=== PATIENT | male | born 2000 | race Caucasian/White ===

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

== ENCOUNTER 2019-01-03 05:21 | Emergency (ER) | payer OTHER, MEDICAID ==
[~2019-01-03] VITALS: Ht 185.4 cm; Wt 54.4 kg
[2019-01-03 06:46] LABS: Basophils # (auto) 0 uL; Basophils % (auto) 0.5 % (0.0-2.0); Eosinophils # (auto) 0.1 uL; Eosinophils % (auto) 1.9 % (0.0-7.0); Hematocrit 45.2 % (41.0-53.0); Hemoglobin 15.7 g/dL (13.5-17.5); Mean Corpuscular Hemoglobin 30.7 pg (28.0-32.0); Mean Corpuscular Hgb Conc. 34.7 g/dL (32.0-36.0); Mean Corpuscular Volume 88.5 fL (80.0-100.0); Monocytes # (auto) 0.4 uL; Monocytes % (auto) 7.5 % (0.0-12.0); Neutrophils # (auto) 4.4 uL; Neutrophils % (auto) 74.1 % (37.0-80.0); Platelet Count (auto) 198 10^3/uL (140-450); Red Cell Distribution Width 13.1 % (11.8-14.3); White Blood Cell 5.9 10^3/uL (4.4-10.8)
[2019-01-03 06:59] LABS: Alanine Aminotransferase 17 U/L (16-61); Albumin 4.8 g/dL (3.4-5.0); Anion Gap 7 (5-15); Aspartate Aminotransferase 12 U/L (15-37); BUN/Creatinine Ratio 15.3; Blood Urea Nitrogen 15 mg/dL (7-18); Calcium 9.4 mg/dL (8.5-10.1); Carbon Dioxide 26 mmol/L (21-32); Chloride 106 mmol/L (98-107); GFR African American 125 mL/min; GFR Non-African American 104 mL/min; Glucose 88 mg/dL (74-106); Potassium 4.2 mmol/L (3.5-5.1); Sodium 139 mmol/L (136-145)
[2019-01-03 07:04] LABS: Alkaline Phosphatase 74 U/L (45-117); Bilirubin, Total 0.6 mg/dL (0.2-1.0); Total Protein 8.2 g/dL (6.4-8.2)
[2019-01-03 07:20] VITALS: BP 128/77
== END 2019-01-03 08:32 | disposition home or self-care (01) ==
LOC: ER 05:21
DX: R07.89 Other chest pain (principal)
CPT/HCPCS: 36415; 71045; 80053; 84484; 85025; 93005; 94761

== ENCOUNTER 2021-06-10 14:41 | Emergency (ER) | payer MEDICAID ==
[~2021-06-10] VITALS: Ht 185.4 cm; Wt 74.8 kg
[2021-06-10 17:00] VITALS: BP 117/86
== END 2021-06-10 17:36 | disposition home or self-care (01) ==
LOC: ER 14:41
DX: S23.41XA Sprain of ribs, initial encounter (principal); F12.10 Cannabis abuse, uncomplicated; W22.8XXA Striking against or struck by other objects, initial encounter; Y93.89 Activity, other specified; Y92.89 Other specified places as the place of occurrence of the external cause; Y99.8 Other external cause status
CPT/HCPCS: 71101

== ENCOUNTER 2023-08-25 17:13 | Emergency (ER) | payer MEDICAID ==
[~2023-08-25] VITALS: Ht 185.4 cm; Wt 85.0 kg
[2023-08-25 17:22] VITALS: BP 137/85; RESP 18; O2SAT 97
[2023-08-25 17:35] LABS: Basophils # (auto) 0.1 10 ^3/uL (0-0.2); Basophils % (auto) 0.8 % (0.0-2.0); Eosinophils # (auto) 0.4 10 ^3/uL (0-0.8); Eosinophils % (auto) 3.4 % (0.0-7.0); Hematocrit 43.6 % (41.0-53.0); Hemoglobin 14.5 g/dL (13.5-17.5); Lymphocytes # (auto) 2.1 10 ^3/uL (0.4-5.4); Lymphocytes % (auto) 15.7 % (10.0-50.0); Mean Corpuscular Hemoglobin 28.8 pg (28.0-32.0); Mean Corpuscular Hgb Conc. 33.4 g/dL (32.0-36.0); Mean Corpuscular Volume 86.4 fL (80.0-100.0); Monocytes # (auto) 0.7 10 ^3/uL (0-1.3); Monocytes % (auto) 5.6 % (0.0-12.0); Neutrophils # (auto) 9.9 10 ^3/uL (1.6-8.6); Neutrophils % (auto) 74.5 % (37.0-80.0); Red Blood Cells 5.04 10^6/uL (4.5-5.90); Red Cell Distribution Width 13.5 % (11.8-14.3); White Blood Cell 13.3 10^3/uL (4.4-10.8)
[2023-08-25 17:57] LABS: Alanine Aminotransferase 31 U/L (7-40); Albumin 4.9 g/dL (3.2-4.8); Alkaline Phosphatase 88 U/L (46-116); Anion Gap 10 (5-15); Aspartate Aminotransferase 15 U/L (13-40); BUN/Creatinine Ratio 11.2 (10.0-20.0); Bilirubin, Total 0.5 mg/dL (0.2-1.0); Blood Urea Nitrogen 11 mg/dL (9-23); Calcium 10.2 mg/dL (8.7-10.4); Carbon Dioxide 24 mmol/L (20-30); Chloride 107 mmol/L (98-107); Glucose 125 mg/dL (74-106); Sodium 141 mmol/L (136-145); Total Protein 7.8 g/dL (5.7-8.2)
[2023-08-25 19:37] LABS: Urine Bacteria None Seen /hpf (None Seen)
[2023-08-25 19:39] VITALS: PULSE 101
[2023-08-25 19:52] LABS: Urine Blood Negative /uL (Negative); Urine Clarity Clear (Clear); Urine Color Colorless (Yellow); Urine Protein, UAD Negative (Negative); Urine Urobilinogen Normal (Negative); Urine WBC 1 /hpf (0 - 3)
== END 2023-08-25 20:06 | disposition home or self-care (01) ==
LOC: ER 17:13
DX: R07.89 Other chest pain (principal); F41.9 Anxiety disorder, unspecified; J45.909 Unspecified asthma, uncomplicated; F32.9 Major depressive disorder, single episode, unspecified; I10 Essential (primary) hypertension; F12.90 Cannabis use, unspecified, uncomplicated; Z98.890 Other specified postprocedural states
CPT/HCPCS: 36415; 71045; 80053; 81001; 84484; 85025; 93005

== ENCOUNTER 2023-08-27 15:35 | Emergency (ER) | payer MEDICAID ==
[~2023-08-27] VITALS: Ht 185.4 cm; Wt 85.2 kg
[2023-08-27 16:05] VITALS: PULSE 103; RESP 16; O2SAT 98
[2023-08-27 16:20] LABS: Basophils # (auto) 0.1 10 ^3/uL (0-0.2); Basophils % (auto) 0.6 % (0.0-2.0); Eosinophils # (auto) 0.4 10 ^3/uL (0-0.8); Eosinophils % (auto) 3.2 % (0.0-7.0); Hematocrit 43.1 % (41.0-53.0); Hemoglobin 14.8 g/dL (13.5-17.5); Lymphocytes # (auto) 2.1 10 ^3/uL (0.4-5.4); Lymphocytes % (auto) 15.9 % (10.0-50.0); Mean Corpuscular Hemoglobin 29.6 pg (28.0-32.0); Mean Corpuscular Hgb Conc. 34.4 g/dL (32.0-36.0); Mean Corpuscular Volume 85.8 fL (80.0-100.0); Monocytes # (auto) 0.9 10 ^3/uL (0-1.3); Neutrophils # (auto) 9.8 10 ^3/uL (1.6-8.6); Neutrophils % (auto) 73.3 % (37.0-80.0); Nucleated Red Blood Cells % 0.2 %; Red Blood Cells 5.02 10^6/uL (4.5-5.90); Red Cell Distribution Width 13.4 % (11.8-14.3); White Blood Cell 13.3 10^3/uL (4.4-10.8)
[2023-08-27] MEDS: DICYCLOMINE HCL (10MG/ML) 2 ML AMPULE IM ONE (16:20)
[2023-08-27 16:25] LABS: Chloride 105 mmol/L (98-107); Potassium 4.2 mmol/L (3.5-5.1); Sodium 139 mmol/L (136-145)
[2023-08-27 16:26] LABS: Anion Gap 8 (5-15); Carbon Dioxide 26 mmol/L (20-30)
[2023-08-27 16:27] LABS: Calcium 10.5 mg/dL (8.7-10.4)
[2023-08-27 16:31] LABS: BUN/Creatinine Ratio 14.3 (10.0-20.0); Blood Urea Nitrogen 14 mg/dL (9-23); Glucose 97 mg/dL (74-106)
[2023-08-27 16:32] LABS: Lipase 37 U/L (12-53)
[2023-08-27] MEDS ORDERED: DICY10CA PO (19:40)
[2023-08-27 20:11] VITALS: BP 140/81; PULSE 98; RESP 19; TEMP 98.4; O2SAT 97
== END 2023-08-27 20:15 | disposition home or self-care (01) ==
LOC: ER 15:35
DX: R10.12 Left upper quadrant pain (principal); R42 Dizziness and giddiness; I10 Essential (primary) hypertension; J45.909 Unspecified asthma, uncomplicated; F41.9 Anxiety disorder, unspecified; F32.9 Major depressive disorder, single episode, unspecified; F15.90 Other stimulant use, unspecified, uncomplicated; Z98.890 Other specified postprocedural states; Z87.891 Personal history of nicotine dependence
CPT/HCPCS: 36415; 74176; 80048; 83690; 85025; 96372; 99285; J0500

== ENCOUNTER 2023-08-30 18:53 | Emergency (ER) | payer MEDICAID ==
[~2023-08-30] VITALS: Ht 185.4 cm; Wt 99.2 kg
[~2023-08-30 18:53] MED LIST: DICY10CA PO
[2023-08-30] MEDS ORDERED: KETOROLAC TROMETH 60MG/2ML VIAL IM ONE (19:15)
[2023-08-30 19:18] LABS: Basophils # (auto) 0.1 10 ^3/uL (0-0.2); Basophils % (auto) 0.7 % (0.0-2.0); Eosinophils # (auto) 0.4 10 ^3/uL (0-0.8); Eosinophils % (auto) 2.7 % (0.0-7.0); Hematocrit 43.5 % (41.0-53.0); Hemoglobin 14.9 g/dL (13.5-17.5); Lymphocytes # (auto) 2.1 10 ^3/uL (0.4-5.4); Lymphocytes % (auto) 15.8 % (10.0-50.0); Mean Corpuscular Hemoglobin 29.1 pg (28.0-32.0); Mean Corpuscular Hgb Conc. 34.2 g/dL (32.0-36.0); Mean Corpuscular Volume 85.3 fL (80.0-100.0); Monocytes # (auto) 0.8 10 ^3/uL (0-1.3); Neutrophils # (auto) 9.9 10 ^3/uL (1.6-8.6); Neutrophils % (auto) 74.8 % (37.0-80.0); Nucleated Red Blood Cells % 0.1 %; Red Cell Distribution Width 13.3 % (11.8-14.3); White Blood Cell 13.2 10^3/uL (4.4-10.8)
[2023-08-30 19:36] LABS: Alanine Aminotransferase 29 U/L (7-40); Albumin 4.9 g/dL (3.2-4.8); Alkaline Phosphatase 89 U/L (46-116); Anion Gap 8 (5-15); Aspartate Aminotransferase 20 U/L (13-40); Calcium 10.5 mg/dL (8.7-10.4); Carbon Dioxide 26 mmol/L (20-30); Chloride 107 mmol/L (98-107); Glucose 94 mg/dL (74-106); Potassium 4.1 mmol/L (3.5-5.1); Sodium 141 mmol/L (136-145)
[2023-08-30 19:37] LABS: Bilirubin, Total 0.3 mg/dL (0.2-1.0); Total Protein 7.6 g/dL (5.7-8.2)
[2023-08-30 19:41] LABS: BUN/Creatinine Ratio 14.2 (10.0-20.0); Blood Urea Nitrogen 15 mg/dL (9-23)
[2023-08-30 21:57] VITALS: BP 131/90; PULSE 99; RESP 16; O2SAT 98
[2023-08-30] MEDS: SODIUM CHLORIDE 0.9% 1,000 ML IV ONE (22:03)
[2023-08-30] MEDS: KETOROLAC TROMETH 30 MG/ML 1ML VIAL IV ONE (22:04)
== END 2023-08-30 22:59 | disposition home or self-care (01) ==
LOC: ER 18:53
DX: R07.89 Other chest pain (principal); R42 Dizziness and giddiness; J45.909 Unspecified asthma, uncomplicated; I10 Essential (primary) hypertension
CPT/HCPCS: 36415; 71045; 80053; 84484; 85025; 93005; 96361; 96374; 99285; J1885; J7030

== ENCOUNTER 2023-09-04 17:31 | Emergency (ER) | payer MEDICAID ==
[~2023-09-04] VITALS: Ht 185.4 cm; Wt 83.8 kg
[2023-09-04 18:32] VITALS: BP 141/94; PULSE 115; RESP 18; TEMP 97; O2SAT 97
== END 2023-09-04 19:13 | disposition home or self-care (01) ==
LOC: ER 17:31
DX: I80.8 Phlebitis and thrombophlebitis of other sites (principal); I10 Essential (primary) hypertension; J45.909 Unspecified asthma, uncomplicated; F41.9 Anxiety disorder, unspecified; F32.9 Major depressive disorder, single episode, unspecified; Z98.890 Other specified postprocedural states
CPT/HCPCS: 93971

== ENCOUNTER 2023-09-06 22:48 | Inpatient (IN) | payer MEDICAID ==
[~2023-09-06] VITALS: Ht 185.4 cm; Wt 81.9 kg
[2023-09-06] MEDS: ADENOSINE 6 MG/2 ML INJ IV ONE ×3 (23:12→23:45)
[2023-09-06] MEDS: METOPROLOL TARTRATE 1MG/1ML-5ML VIAL IV ONE ×3 (23:26→23:46)
[2023-09-06 23:28] LABS: Basophils # (auto) 0.1 10 ^3/uL (0-0.2); Basophils % (auto) 0.6 % (0.0-2.0); Eosinophils # (auto) 0.4 10 ^3/uL (0-0.8); Eosinophils % (auto) 2.3 % (0.0-7.0); Hematocrit 40.7 % (41.0-53.0); Hemoglobin 14.4 g/dL (13.5-17.5); Lymphocytes # (auto) 2.9 10 ^3/uL (0.4-5.4); Lymphocytes % (auto) 18.5 % (10.0-50.0); Mean Corpuscular Hemoglobin 29.7 pg (28.0-32.0); Mean Corpuscular Hgb Conc. 35.3 g/dL (32.0-36.0); Mean Corpuscular Volume 84.2 fL (80.0-100.0); Monocytes # (auto) 1.1 10 ^3/uL (0-1.3); Monocytes % (auto) 7.2 % (0.0-12.0); Neutrophils # (auto) 11.2 10 ^3/uL (1.6-8.6); Neutrophils % (auto) 71.4 % (37.0-80.0); Red Blood Cells 4.83 10^6/uL (4.5-5.90); Red Cell Distribution Width 13.4 % (11.8-14.3); White Blood Cell 15.7 10^3/uL (4.4-10.8)
[2023-09-06 23:30] VITALS: PULSE 117; RESP 16; O2SAT 95
[2023-09-06 23:45] LABS: INR 1.02 (0.9-1.15); Prothrombin Time 10.8 sec (9.3-11.8)
[2023-09-06] MEDS: LABETALOL HCL 200 MG TAB PO ONE (23:58)
[2023-09-07] VITALS (7 sets, daily range): BP systolic 118–137; BP diastolic 74–85; PULSE 98–118; RESP 13–18; TEMP 97.7–99.2; O2SAT 95–98
[2023-09-07] MEDS ORDERED: ONDANSETRON HCL 4 MG/2 ML VIAL IV PRN (00:15)
[2023-09-07] MEDS ORDERED: TEMAZEPAM 15 MG CAP PO PRN (00:15)
[2023-09-07] MEDS ORDERED: MORPHINE SULFATE INJ 2 MG/ml SYRG IV PRN (00:15)
[2023-09-07] MEDS ORDERED: NITROGLYCERIN 0.4 MG SL TAB SL PRN (00:15)
[2023-09-07] MEDS ORDERED: ALBUTEROL SULF 2.5 MG/0.5ML(0.5%) NEB SOLN NEB PRN (00:15)
[2023-09-07 00:18] LABS: Albumin 3.9 g/dL (3.2-4.8); Alkaline Phosphatase 73 U/L (46-116); Anion Gap 10 (5-15); Aspartate Aminotransferase 14 U/L (13-40); BUN/Creatinine Ratio 16.1 (10.0-20.0); Blood Urea Nitrogen 14 mg/dL (9-23); Calcium 9.1 mg/dL (8.7-10.4); Carbon Dioxide 20 mmol/L (20-30); Chloride 109 mmol/L (98-107); Glucose 108 mg/dL (74-106); Magnesium 1.6 mg/dL (1.6-2.6); Potassium 3.5 mmol/L (3.5-5.1); Sodium 139 mmol/L (136-145)
[2023-09-07 00:19] LABS: Bilirubin, Total 0.4 mg/dL (0.2-1.0); Total Protein 6.2 g/dL (5.7-8.2)
[2023-09-07 00:23] LABS: Alanine Aminotransferase 22 U/L (7-40)
[2023-09-07 02:38] LABS: Urine Bacteria None Seen /hpf (None Seen); Urine WBC None Seen /hpf (0 - 3)
[2023-09-07 03:02] LABS: Urine Blood Negative /uL (Negative); Urine Clarity Clear (Clear); Urine Color Colorless (Yellow); Urine Protein, UAD Negative (Negative); Urine Specific Gravity 1.003 (1.001-1.035); Urine Urobilinogen Normal (Negative)
[2023-09-07] MEDS: METOPROLOL SUCCINATE XL 50 MG TAB PO SCH (09:27)
[2023-09-07] MEDS: SERTRALINE HCL 50 MG TAB PO SCH (09:27)
[2023-09-07] MEDS: LORazepam 0.5 MG TAB PO ONE ×2 (18:15→21:11)
[2023-09-07] MEDS: SODIUM CHLORIDE 0.9% 1,000 ML IV ONE (18:15)
[2023-09-07] MEDS: QUEtiapine FUMARATE 100 MG TAB PO SCH (21:10)
[2023-09-07 21:22] LABS: Amphetamine Screen, Urine Neg (NEGATIVE); Barbiturate Scree,Urine Neg (NEGATIVE); Benzodiazephine Screen, Urine Neg (NEGATIVE); Cannabinoid Screen, Urine Neg (NEGATIVE); Cocaine Screen, Urine Neg (NEGATIVE); Opiate Scree,Urine Neg (NEGATIVE); Phencyclidine Screen, Urine Neg (NEGATIVE)
[2023-09-08 01:00] VITALS: BP 130/85; PULSE 109; RESP 16; TEMP 98.2; O2SAT 96
[2023-09-08 05:00] VITALS: BP 122/72; PULSE 86; RESP 16; TEMP 98.2; O2SAT 97
[2023-09-08 06:22] LABS: Chloride 105 mmol/L (98-107); Potassium 4.2 mmol/L (3.5-5.1); Sodium 139 mmol/L (136-145)
[2023-09-08 06:23] LABS: Anion Gap 6 (5-15); Carbon Dioxide 28 mmol/L (20-30)
[2023-09-08 06:24] LABS: Calcium 9.9 mg/dL (8.5-10.1)
[2023-09-08 06:28] LABS: BUN/Creatinine Ratio 10.9 (10.0-20.0); Blood Urea Nitrogen 11 mg/dL (9-23); Glucose 86 mg/dL (74-106)
[2023-09-08 07:44] VITALS: PULSE 96
[2023-09-08 09:00] VITALS: BP 128/80; PULSE 107; RESP 16; TEMP 97.8; O2SAT 99
[2023-09-08] MEDS ORDERED: LORA-1121 PO (10:03)
[2023-09-08] MEDS ORDERED: METO-289 PO (10:03)
[2023-09-08] MEDS ORDERED: SERT-206 PO (10:03)
[2023-09-08] MEDS ORDERED: FLUT1SPR21 (10:03)
[2023-09-08] MEDS ORDERED: ALBU108A5 IN (10:03)
[2023-09-08] MEDS ORDERED: QUET300T24 PO (10:03)
[2023-09-08] MEDS ORDERED: FAMO40TA7 PO (10:03)
[2023-09-08] MEDS: METOPROLOL SUCCINATE XL 50 MG TAB PO SCH (10:13)
[2023-09-08 10:17] VITALS: O2SAT 98
[2023-09-09 09:08] LABS: Hepatitis B Surface Antigen Negative (Negative)
[2023-09-09 09:29] LABS: Hepatitis C Antibody Negative (Negative)
== END 2023-09-08 13:05 | disposition home or self-care (01) | DRG 201 ==
LOC: ER 22:48 → TELE 09-07 00:22 → TELE-E-ADS 09-07 14:49
PROVIDERS: ADMIT Nurse Practitioner; ATTEND Nurse Practitioner Acute Care
DX: I47.10 Supraventricular tachycardia, unspecified (principal); E78.5 Hyperlipidemia, unspecified; F32.A Depression, unspecified; F41.9 Anxiety disorder, unspecified; I10 Essential (primary) hypertension; J45.909 Unspecified asthma, uncomplicated; Z83.3 Family history of diabetes mellitus; Z79.899 Other long term (current) drug therapy
CPT/HCPCS: 36415; 71045; 80048; 80053; 80307; 81001; 83735; 83880; 84484; 85025; 85610; 85730; 86803; 87340; 93005; 93306; 96374; 96375; 99291; G0378; J0153

== ENCOUNTER 2023-09-09 11:25 | Emergency (ER) | payer MEDICAID ==
[~2023-09-09] VITALS: Ht 185.4 cm; Wt 82.1 kg
[~2023-09-09 11:25] MED LIST changes: +ALBU108A5 IN; +FAMO40TA7 PO; +FLUT1SPR21; +LORA-1121 PO; +METO-289 PO; +QUET300T24 PO; +SERT-206 PO
[2023-09-09 12:20] VITALS: BP 126/88; PULSE 128; RESP 18; O2SAT 98
[2023-09-09 12:29] LABS: Urine Bacteria None Seen /hpf (None Seen)
[2023-09-09 12:45] LABS: Basophils # (auto) 0.1 10 ^3/uL (0-0.2); Basophils % (auto) 0.6 % (0.0-2.0); Eosinophils # (auto) 0.3 10 ^3/uL (0-0.8); Eosinophils % (auto) 1.8 % (0.0-7.0); Hematocrit 44.4 % (41.0-53.0); Hemoglobin 15.2 g/dL (13.5-17.5); Lymphocytes # (auto) 1.8 10 ^3/uL (0.4-5.4); Lymphocytes % (auto) 11.9 % (10.0-50.0); Mean Corpuscular Hemoglobin 29.3 pg (28.0-32.0); Mean Corpuscular Hgb Conc. 34.3 g/dL (32.0-36.0); Mean Corpuscular Volume 85.4 fL (80.0-100.0); Monocytes # (auto) 1.1 10 ^3/uL (0-1.3); Monocytes % (auto) 7.4 % (0.0-12.0); Neutrophils # (auto) 11.6 10 ^3/uL (1.6-8.6); Neutrophils % (auto) 78.3 % (37.0-80.0); Nucleated Red Blood Cells % 0.1 %; Red Cell Distribution Width 13.1 % (11.8-14.3); White Blood Cell 14.9 10^3/uL (4.4-10.8)
[2023-09-09 13:09] LABS: Urine Blood Negative /uL (Negative); Urine Clarity Clear (Clear); Urine Color Colorless (Yellow); Urine Protein, UAD Negative (Negative); Urine Specific Gravity 1.005 (1.001-1.035); Urine Urobilinogen Normal (Negative); Urine WBC <1 /hpf (0 - 3)
[2023-09-09 13:12] LABS: Alanine Aminotransferase 25 U/L (7-40); Alkaline Phosphatase 97 U/L (46-116); Anion Gap 8 (5-15); Aspartate Aminotransferase 14 U/L (13-40); BUN/Creatinine Ratio 16.5 (10.0-20.0); Blood Urea Nitrogen 19 mg/dL (9-23); Calcium 10.6 mg/dL (8.5-10.1); Carbon Dioxide 26 mmol/L (20-30); Chloride 102 mmol/L (98-107); Glucose 107 mg/dL (74-106); Potassium 4.3 mmol/L (3.5-5.1); Sodium 136 mmol/L (136-145)
[2023-09-09 13:13] LABS: Albumin 5.2 g/dL (3.2-4.8); Bilirubin, Total 0.8 mg/dL (0.2-1.0); Total Protein 7.8 g/dL (5.7-8.2)
== END 2023-09-09 20:30 | disposition left against medical advice (07) ==
LOC: ER 11:25
DX: F41.9 Anxiety disorder, unspecified (principal); I10 Essential (primary) hypertension; E78.5 Hyperlipidemia, unspecified; F32.9 Major depressive disorder, single episode, unspecified; J45.909 Unspecified asthma, uncomplicated; Z98.890 Other specified postprocedural states; Z87.891 Personal history of nicotine dependence; Z79.899 Other long term (current) drug therapy
CPT/HCPCS: 36415; 80053; 81001; 84484; 85025; 93005

== ENCOUNTER 2023-10-10 15:36 | Emergency (ER) | payer MEDICAID ==
[~2023-10-10] VITALS: Ht 185.4 cm; Wt 82.0 kg
[2023-10-10 16:18] LABS: Basophils # (auto) 0.1 10 ^3/uL (0-0.2); Basophils % (auto) 0.7 % (0.0-2.0); Eosinophils # (auto) 0.4 10 ^3/uL (0-0.8); Eosinophils % (auto) 2.4 % (0.0-7.0); Hematocrit 44.6 % (41.0-53.0); Hemoglobin 15.4 g/dL (13.5-17.5); Lymphocytes # (auto) 2.3 10 ^3/uL (0.4-5.4); Lymphocytes % (auto) 14.3 % (10.0-50.0); Mean Corpuscular Hemoglobin 29.4 pg (28.0-32.0); Mean Corpuscular Hgb Conc. 34.6 g/dL (32.0-36.0); Neutrophils # (auto) 12.5 10 ^3/uL (1.6-8.6); Neutrophils % (auto) 76.6 % (37.0-80.0); Nucleated Red Blood Cells % 0.3 %; Red Blood Cells 5.25 10^6/uL (4.5-5.90); Red Cell Distribution Width 13.1 % (11.8-14.3); White Blood Cell 16.3 10^3/uL (4.4-10.8)
[2023-10-10 16:37] LABS: Alanine Aminotransferase 35 U/L (7-40); Albumin 5.1 g/dL (3.2-4.8); Alkaline Phosphatase 95 U/L (46-116); Anion Gap 11 (5-15); Aspartate Aminotransferase 16 U/L (13-40); BUN/Creatinine Ratio 9.6 (10.0-20.0); Blood Urea Nitrogen 10 mg/dL (9-23); Calcium 10.2 mg/dL (8.7-10.4); Carbon Dioxide 24 mmol/L (20-30); Chloride 102 mmol/L (98-107); Glucose 97 mg/dL (74-106); Magnesium 1.9 mg/dL (1.6-2.6); Potassium 3.7 mmol/L (3.5-5.1); Sodium 137 mmol/L (136-145)
[2023-10-10 16:38] LABS: Bilirubin, Total 0.6 mg/dL (0.2-1.0); Total Protein 8.1 g/dL (5.7-8.2)
[2023-10-10 16:41] LABS: Urine Bacteria None Seen /hpf (None Seen); Urine WBC None Seen /hpf (0 - 3)
[2023-10-10 16:50] LABS: Urine Blood Negative /uL (Negative); Urine Budding Yeast OCCASIONAL /hpf (None Seen); Urine Clarity Clear (Clear); Urine Color Colorless (Yellow); Urine Protein, UAD Negative (Negative); Urine Specific Gravity 1.009 (1.001-1.035); Urine Urobilinogen Normal (Negative); Urine pH 6.5 (5.0-9.0)
[2023-10-10] MEDS ORDERED: BUPR150T8 PO (16:53)
[2023-10-10 17:16] VITALS: BP 123/91; PULSE 97; RESP 16; TEMP 98.1; O2SAT 98
== END 2023-10-10 17:30 | disposition home or self-care (01) ==
LOC: ER 15:36
DX: F41.9 Anxiety disorder, unspecified (principal); R07.89 Other chest pain; I10 Essential (primary) hypertension; E78.5 Hyperlipidemia, unspecified; J45.909 Unspecified asthma, uncomplicated; F32.9 Major depressive disorder, single episode, unspecified; Z98.890 Other specified postprocedural states; Z87.891 Personal history of nicotine dependence; Z79.899 Other long term (current) drug therapy
CPT/HCPCS: 36415; 80053; 81001; 83735; 84484; 85025; 93005

== ENCOUNTER 2023-12-15 15:05 | Emergency (ER) | payer MEDICAID ==
[~2023-12-15] VITALS: Ht 185.4 cm; Wt 81.6 kg
[2023-12-15 15:05] VITALS: BP 119/85; RESP 16; O2SAT 96
[~2023-12-15 15:05] MED LIST changes: +BUPR150T8 PO
[2023-12-15 16:04] LABS: Basophils # (auto) 0.1 10 ^3/uL (0-0.2); Basophils % (auto) 0.6 % (0.0-2.0); Eosinophils # (auto) 0.4 10 ^3/uL (0-0.8); Eosinophils % (auto) 3.6 % (0.0-7.0); Hematocrit 44.1 % (41.0-53.0); Lymphocytes # (auto) 2.7 10 ^3/uL (0.4-5.4); Lymphocytes % (auto) 22.1 % (10.0-50.0); Mean Corpuscular Hemoglobin 28.8 pg (28.0-32.0); Mean Corpuscular Volume 84.7 fL (80.0-100.0); Monocytes # (auto) 0.9 10 ^3/uL (0-1.3); Monocytes % (auto) 7.6 % (0.0-12.0); Neutrophils # (auto) 8.1 10 ^3/uL (1.6-8.6); Neutrophils % (auto) 66.1 % (37.0-80.0); Nucleated Red Blood Cells % 0.2 %; Platelet Count (auto) 272 10^3/uL (140-450); Red Blood Cells 5.21 10^6/uL (4.5-5.90); Red Cell Distribution Width 13.2 % (11.8-14.3); White Blood Cell 12.2 10^3/uL (4.4-10.8)
[2023-12-15 16:07] LABS: Urine Bacteria None Seen /hpf (None Seen)
[2023-12-15 16:13] LABS: Alanine Aminotransferase 28 U/L (7-40); Alkaline Phosphatase 89 U/L (46-116); Anion Gap 7 (5-15); Aspartate Aminotransferase 16 U/L (13-40); BUN/Creatinine Ratio 10.7 (10.0-20.0); Blood Urea Nitrogen 12 mg/dL (9-23); Calcium 9.9 mg/dL (8.7-10.4); Carbon Dioxide 26 mmol/L (20-31); Chloride 108 mmol/L (98-107); Glucose 87 mg/dL (74-106); Potassium 3.8 mmol/L (3.5-5.1); Sodium 141 mmol/L (136-145)
[2023-12-15 16:14] LABS: Albumin 4.7 g/dL (3.2-4.8); Bilirubin, Total 0.5 mg/dL (0.2-1.0); Total Protein 7.6 g/dL (5.7-8.2)
[2023-12-15 16:17] LABS: Urine Blood Negative /uL (Negative); Urine Clarity Clear (Clear); Urine Color Light-Yellow (Yellow); Urine Protein, UAD Negative (Negative); Urine Specific Gravity 1.017 (1.001-1.035); Urine Urobilinogen Normal (Negative); Urine WBC 1 /hpf (0 - 3)
[2023-12-15 19:18] VITALS: PULSE 98
== END 2023-12-15 23:55 | disposition home or self-care (01) ==
LOC: ER 15:07
DX: F41.9 Anxiety disorder, unspecified (principal); I10 Essential (primary) hypertension; E78.5 Hyperlipidemia, unspecified; F32.A Depression, unspecified; J45.909 Unspecified asthma, uncomplicated; Z98.890 Other specified postprocedural states; Z79.899 Other long term (current) drug therapy
CPT/HCPCS: 36415; 80053; 81001; 82962; 84484; 85025; 93005

== ENCOUNTER 2024-01-23 15:20 | Emergency (ER) | payer MEDICAID ==
[~2024-01-23] VITALS: Ht 182.9 cm; Wt 83.0 kg
[2024-01-23 15:48] LABS: Urine Bacteria None Seen /hpf (None Seen)
[2024-01-23 16:12] LABS: Urine Blood Negative /uL (Negative); Urine Clarity Clear (Clear); Urine Color Colorless (Yellow); Urine Protein, UAD Negative (Negative); Urine Specific Gravity 1.003 (1.001-1.035); Urine Urobilinogen Normal (Negative); Urine WBC <1 /hpf (0 - 3)
[2024-01-23 16:59] VITALS: BP 130/78; PULSE 97; RESP 18; TEMP 100.2; O2SAT 95
--- NOTE | 2024-01-23 17:59 | ED.PDOC ---
History of Present Illness HPI Comments 24y M who presents to the ED for chief complaint of fever. Pt states he has been having fever and tachycardia at home for the past few days. Pt states his temp at home was 101F and states while checking his vitals, he noted his heart rate rises to between 140 to 180's and came to the ED for further evaluation. Pt also states he is under tx for atival withdrawal to get off medication. Pt has history of anxiety and depression and HTN. Pt otherwise denies any other symptoms at this time. Chief Complaint: Fever Time Seen by MD: 17:56 Reviewed Notes: Nurses Notes Information Source: Patient, Relative (Father) Mode of Arrival: Ambulatory Timing: Hours, Days Duration: Since onset Prehospital treatment: None Severity: Moderate Fever: Oral Context: Recent: Sore throat Symptoms: Fever Modifying Factors: Tylenol Associated Signs and Symptoms: None Past Medical History PAST MEDICAL HISTORY: Anxiety, Asthma, Depression, High Lipids, HTN Surgical History: Hernia Repair Family History Family History: Family hx of DM, Family hx of heart sabina Social History Smoker: Non-Smoker, Other Alcohol: Denies ETOH Use Drugs: Denies Drug Use Lives In: Home Constitutional: Fever EENTM: No Symptoms Reported Respiratory: No Symptoms Reported Cardiovascular: No Symptoms Reported Gastrointestinal: No Symptoms Reported Genitourinary: No Symptoms Reported Neurological: No Symptoms Reported Musculoskeletal: No Symptoms Reported Integumentary: No Symptoms Reported Allergic/Immunocompromised: others Hematologic/Lymphatic: No Symptoms Reported Endocrine: No Symptoms Reported Psychiatric: No symptoms Reported All Other Systems: Reviewed and Negative Physical Exam General Appearance: No Apparent Distress HEENT: Normal ENT Inspection, Pharynx Normal, TMs Normal Neck: Full Range of Motion, Non-Tender, Normal, Normal Inspection Respiratory: Chest Non-Tender, Lungs Clear, No Accessory Muscle Use, No Respiratory Distress, Normal Breath Sounds Cardiovascular: No Edema, No JVD, No Murmur, No Gallop, Normal Peripheral Pulses, Regular Rate/Rhythm Breast Exam: Deferred Gastrointestinal: No Organomegaly, Non Tender, No Pulsatile Mass, Normal Bowel Sounds, Soft Genitalia: Deferred Pelvic: Deferred Rectal: Deferred Extremities: No calf tenderness, Normal capillary refill, Normal inspection, Normal range of motion, Non-tender, No pedal edema Musculoskeletal : Apperance: Normal Neurologic: Alert, police radio dispatcher II-XII nml as Tested, No Motor Deficits, Normal Affect, Normal Mood, No Sensory Deficits Cerebellar Function: Normal Reflexes: Normal Skin: Dry, Normal Color, Warm Lymphatic: No Adenopathy Was a procedure done? Was a procedure done?: No Fever Differential Dx Differential Diagnosis: Dehydration, Influenza, Pharyngitis Other Differential Diagnosis anxiety, hypochondriasis, URI, X-Ray, Labs, Meds, VS Vital Signs Date Time Temp Pulse Resp B/P (MAP) Pulse Ox O2 Delivery O2 Flow Rate FiO2 01/23/24 16:59 100.2 97 18 130/78 (95) 95 100.2 01/23/24 16:59 97 18 95 Room Air 01/23/24 15:45 100.1 99 18 131/85 (100) 95 Lab Test 01/23/24 15:47 Range/Units Urine Color Colorless Yellow Urine Clarity Clear Clear Urine pH 7.0 5.0-9.0 Urine Specific Dwarf 1.003 1.001-1.035 Urine Protein Negative Negative Urine Ketones Negative Negative Urine Blood Negative Negative /uL Urine Nitrite Negative Negative Urine Bilirubin Negative Negative Urine Urobilinogen Normal Negative mg/dL Urine Leukocyte Esterase Negative Negative /uL Urine RBC None seen 0 - 3 /hpf Urine WBC <1 0 - 3 /hpf Urine Squamous Epithelial Cells Few <5 /hpf Urine Bacteria None seen None Seen /hpf Urine Glucose Normal Normal mg/dL PROCEDURE(s): CXR2 - CHEST TWO VIEWS ROUTINE IMPRESSION: No acute cardiopulmonary abnormality. The urine test is negative At this time, the patient was being discharged The patient will follow up with the primary care doctor The patient will return to the emergency department's condition worsens. The patient's diagnosis is viral syndrome Time of 1ST Reevaluation: 18:30 Reevaluation 1ST: Unchanged Patient Education/Counseling: Diagnosis, Treatment, Prognosis, Need For Follow Up Family Education/Counseling: Diagnosis, Treatment, Prognosis, Need For Follow Up Departure 1 Departure Time of Disposition: 19:47 Impression: Primary Impression: Viral syndrome Disposition: 01 HOME / SELF CARE / HOMELESS Condition: Fair Discharged With: Self Critical Care Note Critical Care Time?: No Stability Stability form required: No Heart Score Heart Score: Heart Score Response (Comments) Value History N/A 0 EKG N/A 0 Age N/A 0 Risk Factors N/A 0 Troponin N/A 0 Total 0 I personally scribed for REA POLLOCK MD ([email or web address]) on 01/23/24 at 17:59. Electronically submitted by Delores Lozano ([email or web address]). I personally scribed for REA POLLOCK MD ([email or web address]) on 01/23/24 at 19:31. Electronically submitted by Delores Lozano ([facility] [place]). REA POLLOCK MD Jan 23, 2024 17:59
--- NOTE | 2024-01-23 19:10 | DVH ---
EXAM: XY CHEST TWO VIEWS ROUTINE CLINICAL HISTORY: sob TECHNIQUE: Frontal and lateral of views chest WID: COMPARISON: 09/08/2023 FINDINGS: Lines and tubes: None Chest: The heart size and pulmonary vasculature is within normal limits. No pleural effusion, pneumothorax, or consolidation. The osseous structures are grossly intact. Healed posterior left 8th rib fracture deformity. IMPRESSION: No acute cardiopulmonary abnormality.
== END 2024-01-23 19:53 | disposition home or self-care (01) ==
LOC: ER 15:20
DX: B34.9 Viral infection, unspecified (principal); J45.909 Unspecified asthma, uncomplicated; E78.5 Hyperlipidemia, unspecified; I10 Essential (primary) hypertension; Z98.890 Other specified postprocedural states
CPT/HCPCS: 71046; 81001

== ENCOUNTER 2024-01-30 12:11 | Emergency (ER) | payer MEDICAID ==
[~2024-01-30] VITALS: Ht 175.3 cm; Wt 96.0 kg
--- NOTE | 2024-01-30 12:47 | ED.PDOC ---
HPI Comments 24Y M with PMHx HTN, HLD, asthma, anxiety, and depression presents to ED for chief complaint chest pain. Pt described chest pain as left sided, pressure, and non-radiating. Additional symptom includes dizziness, which pt has experienced daily for 6months. Pt states he woke up in the morning with a HR >100, took his BP medication, and then HR dropped to 58 while laying down. Pt then began to have a panic attack and became tachycardic. 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 Pt states he takes 3/4 of the Metoprolol 50mg pill. Pt is also currently trying to wean off Ativan and original dosage was 3.5mg. Pt states he has been decreasing Ativan by 1/4 of the pill weekly. Pt believes dizziness is due to Ativan. Pt also recently stopped using marijuana. No known allergies. At the time of my interview, patient states the chest pain has resolved, and he no longer feels palpitations. Also reports he has had an extensive cardiac workup including blood work, stress tests and echocardiograms, and was told he does not have heart disease or arrhythmias. Chief Complaint: Chest Pain Time Seen by MD: 12:27 Primary Care Provider: VIKTOR Day Notes: Medications, Allergies Allergies: Coded Allergies: NO KNOWN ALLERGIES (Unverified , 02/22/18) Home Meds Active Scripts Bupropion Hcl (Wellbutrin Sr) 150 Mg Tab, 1 TAB PO BID, #60 TAB 5 Refills Prov:BILL PHILLIPS 10/10/23 Dicyclomine Hcl (BENTYL CAPSULE) 10 Mg Cp, 1 CAP PO Q6HPRN, #20 CAP 0 Refills Prov:FAISAL NICOLE PAC 08/27/23 Reported Medications Albuterol Sulfate (Albuterol Sulfate Hfa) 108 Mcg/Act Aer, 2 PUFF IN Q4H PRN for SHORTNESS OF BREATH, AER 09/08/23 Metoprolol Succinate (Metoprolol Succinate Er) 50 Mg Tab, 50 MG PO DAILY, MG 09/08/23 Sertraline Hcl (Sertraline Hcl) 50 Mg Tab, 25 MG PO DAILY, MG 09/08/23 Famotidine (Famotidine) 40 Mg Tab, 40 MG PO HS, TAB 09/08/23 Quetiapine Fumerate (QUETIAPINE FUMARATE) 300 Mg Tab, 300 MG PO HS, MG 09/08/23 Lorazepam (ATIVAN TABLET) 0.5 Mg Tb, 2 TAB PO DAILY PRN for ANXIETY, #30 TAB 09/08/23 Fluticasone Propionate (Nasal) (Allergy Nasal [place] 24 Ho) 50 Mcg/Act Spr, 1 SPRAY NA DAILY, SPRAY 09/08/23 Information Source: Patient Mode of Arrival: Ambulatory Severity: Mild Timing: Hours Duration: Since onset Location: Chest (L) Radiation: No Radiation Quality: Pressure Onset: At Rest Cardiac Risk Factors: Hyperlipidemia, HTN PE Risk Factors: None History of: Similar pain in past Modifying Factors: Nothing Associated Signs and Symptoms: Other Past Medical History PAST MEDICAL HISTORY: Anxiety, Asthma, Depression, High Lipids, HTN Surgical History: Hernia Repair Family History Family History: Family hx of DM, Family hx of heart sabina Social History Smoker: Non-Smoker, Other Alcohol: Denies ETOH Use Drugs: Denies Drug Use Lives In: Home Constitutional: denies: chills, diaphoresis, fatigue, fever, malaise, sweats, weakness, others EENTM: denies: blurred vision, double vision, ear bleeding, ear discharge, ear drainage, ear pain, ear ringing, eye pain, eye redness, hearing loss, mouth pain, mouth swelling, nasal discharge, nose bleeding, nose congestion, nose pain, photophobia, tearing, throat pain, throat swelling, voice changes, others Respiratory: denies: cough, hemoptysis, orthopnea, SOB at rest, shortness of breath, SOB with excertion, stridor, wheezing, others Cardiovascular: reports: chest pain; denies: dizzy spells, diaphoresis, Dyspnea on exertion, edema, irregular heart beat, left arm pain, lightheadedness, palpitations, PND, syncope, others Gastrointestinal: denies: abdomen distended, abdominal pain, blood streaked bowels, constipated, diarrhea, dysphagia, difficulty swallowing, hematemesis, melena, nausea, poor appetite, poor fluid intake, rectal bleeding, rectal pain, vomiting, others Genitourinary: denies: burning, dysuria, flank pain, frequency, hematuria, incontinence, penile discharge, penile sore, pain, testicle pain, testicle swelling, urgency, others Neurological: reports: dizziness; denies: fainting, headache, left sided numbness, left sided weakness, numbness, paresthesia, pre-existing deficit, right sided numbness, right sided weakness, seizure, speech problems, tingling, tremors, weakness, others Musculoskeletal: denies: back pain, gout, joint pain, joint swelling, muscle pain, muscle stiffness, neck pain, others Integumetry: denies: bruises, change in color, change in hair/nails, dryness, laceration, lesions, lumps, rash, wounds, others Allergic/Immunocompromised: denies: Difficulty Healing, Frequent Infections, Hives, Itching, others Hematologic/Lymphatic: denies: anemia, blood clots, easy bleeding, easy bruising, swollen glands, others Endocrine: denies: excessive hunger, excessive sweating, excessive thirst, excessive urination, flushing, intolerance to cold, intolerance to heat, unexplained weight gain, unexplained weight loss, others Psychiatric: reports: anxiety; denies: bipolar disorder, depression, hopeless, panic disorder, schizophrenia, sleepless, suicidal, others All Other Systems: Reviewed and Negative Physical Exam General Appearance: No Apparent Distress HEENT: PERRL/EOMI Neck: Full Range of Motion, Normal Inspection Respiratory: Chest Non-Tender, Lungs Clear, No Accessory Muscle Use, No Respiratory Distress, Normal Breath Sounds Cardiovascular: No Edema, No JVD, Regular Rate/Rhythm Breast Exam: Deferred Gastrointestinal: Non Tender, Soft Genitalia: Deferred Pelvic: Deferred Rectal: Deferred Extremities: No calf tenderness, Normal inspection, Normal range of motion, Non-tender, No pedal edema Neurologic: Alert, No Motor Deficits, Normal Affect, No Sensory Deficits, Other (Very anxious) Cerebellar Function: NOT DONE Reflexes: NOT DONE Skin: Dry, Normal Color, Warm Lymphatic: NOT DONE EKG EKG : Comments Sinus rhythm, rate 68, normal intervals, normal axis, normal QRS, nonspecific T changes Was a procedure done? Was a procedure done?: No CP Differential Dx Differential Diagnosis: Anxiety / Panic Attack, OR Other Differential Diagnosis Arrhythmia, among others X-Ray, Labs, Meds, VS Vital Signs Date Time Temp Pulse Resp B/P (MAP) Pulse Ox O2 Delivery O2 Flow Rate FiO2 01/30/24 12:29 78 01/30/24 12:29 98.4 93 20 162/121 (135) 96 Lab Test 01/30/24 12:57 01/30/24 12:15 Range/Units Troponin I High Sensitivity < 3 L < 3 L </=54 ng/L X-Ray, Labs, Meds, VS Comment 24-year-old male with a history of hypertension, hyperlipidemia and anxiety complaining of transient chest pain and palpitations Initial blood pressure remarkable for 162/121, now down to 130/80 Exam remarkable for anxiety EKG sinus rhythm, 68, nonspecific T changes Two serial troponins negative On re-evaluation, patient stated he was not having chest pain or palpitations, and and was otherwise well-appearing. Blood pressure was controlled without intervention. Other vitals were stable. Patient has had extensive cardiac workup and has no evidence of heart disease or arrhythmias based on what he has been told by his outside barrel lathe operator. He appears stable for outpatient follow-up. Time of 1ST Reevaluation: 12:57 Reevaluation 1ST: Unchanged Time of 2ND Reevaluation: 13:54 Reevaluation 2ND: Unchanged Patient Education/Counseling: Diagnosis, Treatment Family Education/Counseling: No Family Present Departure 1 Departure Time of Disposition: 13:54 Impression: Primary Impression: Non-cardiac chest pain Additional Impression: Heart palpitations Disposition: 01 HOME / SELF CARE / HOMELESS Condition: Stable Additional Instructions: EKG was unremarkable. Your screening test for heart attack were negative (nor mal). Follow-up with your outside barrel lathe operator in 1-2 days. Discharged With: Self Critical Care Note Critical Care Time?: No Stability Stability form required: No Heart Score Heart Score: Heart Score Response (Comments) Value History Slightly Suspicious 0 EKG Repolarization Disturb 1 Age <45 0 Risk Factors 1 or 2 risk factors 1 Troponin Normal limit 0 Total 2 I personally scribed for MICHELLE SWEENEY MD ([email or web address]) on 01/30/24 at 12:47. Electronically submitted by Ariana Bruno ([email or web address]). MICHELLE SWEENEY MD Jan 30, 2024 12:47
[2024-01-30 13:50] VITALS: BP 122/83; PULSE 86; RESP 18; TEMP 98.3; O2SAT 97
--- NOTE | 2024-01-31 06:36 | ECG ---
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
== END 2024-01-30 14:11 | disposition home or self-care (01) ==
LOC: ER 12:11
DX: R07.89 Other chest pain (principal); R00.2 Palpitations; R42 Dizziness and giddiness; R94.31 Abnormal electrocardiogram [ECG] [EKG]; E78.5 Hyperlipidemia, unspecified; F32.A Depression, unspecified; F41.0 Panic disorder [episodic paroxysmal anxiety]; I10 Essential (primary) hypertension; J45.909 Unspecified asthma, uncomplicated; Z79.899 Other long term (current) drug therapy; Z98.890 Other specified postprocedural states
CPT/HCPCS: 36415; 84484; 93005

== ENCOUNTER 2024-02-10 14:38 | Emergency (ER) | payer MEDICAID ==
[~2024-02-10] VITALS: Ht 182.9 cm; Wt 77.0 kg
--- NOTE | 2024-02-10 15:11 | ED.PDOC ---
History of Present Illness HPI Comments A 24 YEAR OLD MALE PRESENTS TO THE ED WITH COMPLAINT OF TACHYCARDIA AND DIARRHEA. PATIENT REPORTS THAT HE STARTED TO EXPERIENCE TACHYCARDIA TODAY IN THE 160-170S ABOUT 30 MINUTES AGO ALONG WITH ASSOCIATED SYMPTOMS OF COUGH, AND DIARRHEA FOR ABOUT A WEEK. PATIENT RELAYS THAT HIS FEVER WAS NOTED TO BE 101 F AT 3AM THIS MORNING WITH THROAT PAIN AND BODY ACHING. PATIENT NOTES HE TOOK THERAFLU TODAY, RELIEVING HIS COUGH. PATIENT STATES HE TOOK HIS ANXIETY MEDICATION ATIVAN TODAY WHEN HIS TACHYCARDIA STARTED. [place] [facility] [place] FOR SAME COMPLAINTS AND DISCHARGED HOME. PT HAS HX OF SINUS TACHYCARDIA DUE TO ANXIETY. PATIENT DENIES CHILLS, SHORTNESS OF BREATH, CHEST PAIN, ABDOMINAL PAIN, NAUSEA, VOMITING, HEADACHE, OR OTHER COMPLAINTS. NO OTHER SYMPTOMS OR MODIFYING FACTORS AT THIS TIME. PT IS ALERT, ORIENTATION X4 WITH NORMAL GAIT. Chief Complaint: Diarrhea Time Seen by MD: 15:07 Primary Care Provider: VIKTOR Reviewed Notes: Nurses Notes, Medications, Allergies Allergies: Coded Allergies: NO KNOWN ALLERGIES (Unverified , 02/22/18) Home Meds Active Scripts Promethazine-Dm (Promethazine Dm 6.25-15 mg/5Ml) 1 Tatyana Tatyana, 5 ML PO TID, #150 ML Prov:CHIO HICKS 02/10/24 Ibuprofen (Ibuprofen) 600 Mg Tab, 1 TAB PO QID, #30 TAB Prov:CHIO HICKS 02/10/24 Azithromycin (ZITHROMAX TABLET) 250 Mg Tb, 250 MG PO DAILY, #6 TAB Prov:CHIO HICKS 02/10/24 Bupropion Hcl (Wellbutrin Sr) 150 Mg Tab, 1 TAB PO BID, #60 TAB 5 Refills Prov:BILL PHILLIPSP 10/10/23 Dicyclomine Hcl (BENTYL CAPSULE) 10 Mg Cp, 1 CAP PO Q6HPRN, #20 CAP 0 Refills Prov:FAISAL NICOLE PAC 08/27/23 Reported Medications Albuterol Sulfate (Albuterol Sulfate Hfa) 108 Mcg/Act Aer, 2 PUFF IN Q4H PRN for SHORTNESS OF BREATH, AER 09/08/23 Metoprolol Succinate (Metoprolol Succinate Er) 50 Mg Tab, 50 MG PO DAILY, MG 09/08/23 Sertraline Hcl (Sertraline Hcl) 50 Mg Tab, 25 MG PO DAILY, MG 09/08/23 Famotidine (Famotidine) 40 Mg Tab, 40 MG PO HS, TAB 09/08/23 Quetiapine Fumerate (QUETIAPINE FUMARATE) 300 Mg Tab, 300 MG PO HS, MG 09/08/23 Lorazepam (ATIVAN TABLET) 0.5 Mg Tb, 2 TAB PO DAILY PRN for ANXIETY, #30 TAB 09/08/23 Fluticasone Propionate (Nasal) (Allergy Nasal [place] 24 Ho) 50 Mcg/Act Spr, 1 SPRAY NA DAILY, SPRAY 09/08/23 Information Source: Patient Mode of Arrival: Ambulatory Severity: Moderate Timing: Hours Duration: Since onset, Intermittent, Days Prehospital treatment: None Medication Refill: For: Other (DIARRHEA, COUGH AND ANXIETY ) Past Medical History PAST MEDICAL HISTORY: Anxiety, Asthma, Depression, High Lipids, HTN Surgical History: Hernia Repair Family History Family History: Family hx of DM, Family hx of heart sabina Social History Smoker: Non-Smoker, Other Alcohol: Denies ETOH Use Drugs: Denies Drug Use Lives In: Home Constitutional: reports: fever; denies: chills, diaphoresis, fatigue, malaise, sweats, weakness, others EENTM: denies: blurred vision, double vision, ear bleeding, ear discharge, ear drainage, ear pain, ear ringing, eye pain, eye redness, hearing loss, mouth pain, mouth swelling, nasal discharge, nose bleeding, nose congestion, nose pain, photophobia, tearing, throat pain, throat swelling, voice changes, others Respiratory: reports: cough; denies: hemoptysis, orthopnea, SOB at rest, shortness of breath, SOB with excertion, stridor, wheezing, others Cardiovascular: reports: others ( TACHYCARDIA); denies: chest pain, dizzy spells, diaphoresis, Dyspnea on exertion, edema, irregular heart beat, left arm pain, lightheadedness, palpitations, PND, syncope Gastrointestinal: reports: diarrhea; denies: abdomen distended, abdominal pain, blood streaked bowels, constipated, dysphagia, difficulty swallowing, hematemesis, melena, nausea, poor appetite, poor fluid intake, rectal bleeding, rectal pain, vomiting, others Genitourinary: denies: burning, dysuria, flank pain, frequency, hematuria, incontinence, penile discharge, penile sore, pain, testicle pain, testicle swelling, urgency, others Neurological: denies: dizziness, fainting, headache, left sided numbness, left sided weakness, numbness, paresthesia, pre-existing deficit, right sided numbness, right sided weakness, seizure, speech problems, tingling, tremors, weakness, others Musculoskeletal: denies: back pain, gout, joint pain, joint swelling, muscle pain, muscle stiffness, neck pain, others Integumetry: denies: bruises, change in color, change in hair/nails, dryness, laceration, lesions, lumps, rash, wounds, others Allergic/Immunocompromised: denies: Difficulty Healing, Frequent Infections, Hives, Itching, others Hematologic/Lymphatic: denies: anemia, blood clots, easy bleeding, easy bruising, swollen glands, others Endocrine: denies: excessive hunger, excessive sweating, excessive thirst, excessive urination, flushing, intolerance to cold, intolerance to heat, unexplained weight gain, unexplained weight loss, others Psychiatric: denies: anxiety, bipolar disorder, depression, hopeless, panic disorder, schizophrenia, sleepless, suicidal, others All Other Systems: Reviewed and Negative Physical Exam General Appearance: No Apparent Distress, Normal HEENT: PERRL/EOMI, Pharyngeal Erythema (TONSILLAR SWELLING, NO EXUDATES. ) Neck: Full Range of Motion, Non-Tender, Normal, Normal Inspection Respiratory: Chest Non-Tender, Lungs Clear, No Accessory Muscle Use, No Respiratory Distress, Normal Breath Sounds Cardiovascular: No Edema, No JVD, No Murmur, No Gallop, Normal Peripheral Pulses, Regular Rate/Rhythm Breast Exam: Deferred Gastrointestinal: No Organomegaly, Non Tender, No Pulsatile Mass, Normal Bowel Sounds, Soft Genitalia: Deferred Pelvic: Deferred Rectal: Deferred Extremities: No calf tenderness, Normal capillary refill, Normal inspection, Normal range of motion, Non-tender, No pedal edema Musculoskeletal : Apperance: Normal Neurologic: Alert, land surveyor II-XII nml as Tested, No Motor Deficits, Normal Affect, Normal Mood, No Sensory Deficits Cerebellar Function: Normal Reflexes: Normal Skin: Dry, Normal Color, Warm Lymphatic: No Adenopathy Was a procedure done? Was a procedure done?: No Differential Dx Considerations may include: ACUTE TONSILLITIS, HX OF ANXIETY, VIRAL SYNDROME X-Ray, Labs, Meds, VS Vital Signs Date Time Temp Pulse Resp B/P (MAP) Pulse Ox O2 Delivery O2 Flow Rate FiO2 02/10/24 17:52 99.8 97 18 139/84 (102) 98 99.8 02/10/24 17:26 101.0 02/10/24 15:26 100.2 116 18 131/89 (103) 97 100.2 02/10/24 15:26 116 18 97 Room Air 02/10/24 14:55 100.2 116 18 131/89 (103) 97 Lab Test 02/10/24 14:56 Range/Units White Blood Count 10.8 4.4-10.8 10^3/uL Red Blood Count 5.43 4.5-5.90 10^6/uL Hemoglobin 15.8 13.5-17.5 g/dL Hematocrit 46.4 41.0-53.0 % Mean Corpuscular Volume 85.4 80.0-100.0 fL Mean Corpuscular Hemoglobin 29.1 28.0-32.0 pg Mean Corpuscular Hemoglobin Concent 34.1 32.0-36.0 g/dL Red Cell Distribution Width 13.5 11.8-14.3 % Platelet Count 227 140-450 10^3/uL Mean Platelet Volume 9.5 6.9-10.8 fL Neutrophils (%) (Auto) 83.2 H 37.0-80.0 % Lymphocytes (%) (Auto) 6.8 L 10.0-50.0 % Monocytes (%) (Auto) 9.0 0.0-12.0 % Eosinophils (%) (Auto) 0.5 0.0-7.0 % Basophils (%) (Auto) 0.5 0.0-2.0 % Neutrophils # (Auto) 9.0 H 1.6-8.6 10 ^3/uL Lymphocytes # (Auto) 0.7 0.4-5.4 10 ^3/uL Monocytes # (Auto) 1.0 0-1.3 10 ^3/uL Eosinophils # (Auto) 0.1 0-0.8 10 ^3/uL Basophils # (Auto) 0.1 0-0.2 10 ^3/uL Nucleated Red Blood Cells 0.0 % Sodium Level 142 136-145 mmol/L Potassium Level 3.5 3.5-5.1 mmol/L Chloride Level 106 98-107 mmol/L Carbon Dioxide Level 26 20-31 mmol/L Anion Gap 10 5-15 Blood Urea Nitrogen 8 L 9-23 mg/dL Creatinine 1.17 0.700-1.30 mg/dL Glomerular Filtration Rate Calc 89 >90 mL/min BUN/Creatinine Ratio 6.8 L 10.0-20.0 Serum Glucose 98 74-106 mg/dL Calcium Level 10.0 8.7-10.4 mg/dL Troponin I High Sensitivity < 3 L </=54 ng/L Current Medications Medications (Trade) Dose Ordered Sig/Jb Route Start Time Stop Time Status Last Admin Sodium Chloride 1,000 ml @ 1,000 mls/hr Q1H ONCE IV 02/10/24 15:15 02/10/24 16:14 DC 02/10/24 15:15 Ceftriaxone Sodium 50 ml @ 100 mls/hr ONCE ONCE IV 02/10/24 17:30 02/10/24 17:51 DC 02/10/24 17:28 Acetaminophen (Tylenol Tablet) 1,000 mg ONCE ONCE PO 02/10/24 17:30 02/10/24 17:31 DC 02/10/24 17:26 CHEST XR: FINDINGS: Lines and Tubes: None Lungs: Clear Pleura: No effusion. No pneumothorax. Cardiomediastinal contours: Unremarkable Bones: Unremarkable IMPRESSION: No acute disease. X-Ray, Labs, Meds, VS Comment LABS ORDERED: CHEST XR, BMP, CBC, TROPONIN REVIEWED AND INTERPRETED RESULTS: CHEST XR, BMP, CBC, TROPONIN: ALL NORMAL INDEPENDENT HISTORIANS: NONE TREATMENT: 0.9 1L IV BOLUS, ROCEPHIN 1GM IVPB AND TYLENOL 1GM PO DISCUSSED TREATMENT AND RESULTS WITH PT. I HAVE DISCUSSED IMAGING AND LAB RESULTS WITH PATIENT AND HAVE INSTRUCTED THEM TO FOLLOW UP WITH THEIR PCP IN 1-2 DAYS. THE PATIENT FULLY UNDERSTANDS THEIR RESULTS AND ARE AWARE THEY NEED TO FOLLOW UP WITH THEIR PCP FOR FURTHER EVALUATION IF THEIR SYMPTOMS PERSIST. Images Reviewed?: Images reviewed and evaluated by me Time of 1ST Reevaluation: 17:50 Reevaluation 1ST: Improved Patient Education/Counseling: Diagnosis, Treatment, Need For Follow Up Family Education/Counseling: Diagnosis, Treatment, Need For Follow Up Medical Screening: No EMC Exist At This Time Departure 1 Departure Time of Disposition: 18:00 Impression: Primary Impression: Acute tonsillitis Qualified Codes: J03.90 - Acute tonsillitis, unspecified Additional Impression: Anxiety reaction Disposition: 01 HOME / SELF CARE / HOMELESS Condition: Stable Additional Instructions: FOLLOW-UP WITH PCP IN 1 TO 2 DAYS. TAKE MEDICATIONS PRESCRIBED. RETURN TO ED FOR ANY NEW OR WORSENING SYMPTOMS. e-Prescriptions Promethazine-Dm (Promethazine Dm 6.25-15 mg/5Ml) 1 Tatyana Tatyana 5 ML PO TID, #150 ML Prov: CHIO HICKS 02/10/24 Ibuprofen (Ibuprofen) 600 Mg Tab 1 TAB PO QID, #30 TAB Prov: CHIO HICKS 02/10/24 Azithromycin (ZITHROMAX TABLET) 250 Mg Tb 250 MG PO DAILY, #6 TAB Prov: CHIO HICKS 02/10/24 Discharged With: Self Critical Care Note Critical Care Time?: No Stability Stability form required: No Heart Score Heart Score: Heart Score Response (Comments) Value History N/A 0 EKG N/A 0 Age N/A 0 Risk Factors N/A 0 Troponin N/A 0 Total 0 I personally scribed for CHIO HICKS ([email or web address]) on 02/10/24 at 15:11. Electronically submitted by Devonte Hidalgo ([email or web address]). I personally scribed for CHIO HICKS ([email or web address]) on 02/10/24 at 15:24. Electronically submitted by Devonte Hidalgo ([email or web address]). CHIO HICKS Feb 10, 2024 15:11
[2024-02-10] MEDS: SODIUM CHLORIDE 0.9% 1,000 ML IV ONE (15:15)
--- NOTE | 2024-02-10 15:19 | DVH ---
CHEST RADIOGRAPH Indication: cough Technique: Single frontal view of the chest was obtained COMPARISON: XY CHEST PORTABLE on DOS: 09/08/23, XY CHEST PORTABLE on DOS: 09/06/23, XY CHEST PORTABLE o n DOS: 08/30/23 FINDINGS: Lines and Tubes: None Lungs: Clear Pleura: No effusion. No pneumothorax. Cardiomediastinal contours: Unremarkable Bones: Unremarkable IMPRESSION: No acute disease.
[2024-02-10 15:23] LABS: Basophils # (auto) 0.1 10 ^3/uL (0-0.2); Basophils % (auto) 0.5 % (0.0-2.0); Eosinophils # (auto) 0.1 10 ^3/uL (0-0.8); Eosinophils % (auto) 0.5 % (0.0-7.0); Hematocrit 46.4 % (41.0-53.0); Hemoglobin 15.8 g/dL (13.5-17.5); Lymphocytes # (auto) 0.7 10 ^3/uL (0.4-5.4); Lymphocytes % (auto) 6.8 % (10.0-50.0); Mean Corpuscular Hemoglobin 29.1 pg (28.0-32.0); Mean Corpuscular Hgb Conc. 34.1 g/dL (32.0-36.0); Mean Corpuscular Volume 85.4 fL (80.0-100.0); Neutrophils % (auto) 83.2 % (37.0-80.0); Platelet Count (auto) 227 10^3/uL (140-450); Red Blood Cells 5.43 10^6/uL (4.5-5.90); Red Cell Distribution Width 13.5 % (11.8-14.3); White Blood Cell 10.8 10^3/uL (4.4-10.8)
[2024-02-10 15:30] LABS: Chloride 106 mmol/L (98-107); Potassium 3.5 mmol/L (3.5-5.1); Sodium 142 mmol/L (136-145)
[2024-02-10 15:31] LABS: Anion Gap 10 (5-15); Carbon Dioxide 26 mmol/L (20-31)
[2024-02-10 15:37] LABS: BUN/Creatinine Ratio 6.8 (10.0-20.0); Glucose 98 mg/dL (74-106)
[2024-02-10 15:47] LABS: Blood Urea Nitrogen 8 mg/dL (9-23)
[2024-02-10] MEDS: ACETAMINOPHEN 500 MG TAB PO ONE (17:26)
[2024-02-10] MEDS: cefTRIAXone 1GM/50ML D5W 50 ML IV ONE (17:28)
[2024-02-10] MEDS ORDERED: AZIT-185 PO (17:42)
[2024-02-10] MEDS ORDERED: IBUP-1454 PO (17:42)
[2024-02-10] MEDS ORDERED: PROM1SOL4 PO (17:43)
[2024-02-10 17:52] VITALS: BP 139/84; PULSE 97; RESP 18; TEMP 99.8; O2SAT 98
== END 2024-02-10 17:51 | disposition home or self-care (01) ==
LOC: ER 14:38
DX: J03.90 Acute tonsillitis, unspecified (principal); F41.1 Generalized anxiety disorder; J45.909 Unspecified asthma, uncomplicated; E78.5 Hyperlipidemia, unspecified; I10 Essential (primary) hypertension; Z79.899 Other long term (current) drug therapy; Z98.890 Other specified postprocedural states
CPT/HCPCS: 36415; 71045; 80048; 84484; 85025; 96361; 96365; 99284; J0696; J7030

== ENCOUNTER 2024-03-20 18:18 | Inpatient (IN) | payer MEDICAID ==
[~2024-03-20] VITALS: Ht 182.9 cm; Wt 79.4 kg
[~2024-03-20 18:18] MED LIST changes: +AZIT-185 PO; +IBUP-1454 PO; +PROM1SOL4 PO
--- NOTE | 2024-03-20 18:27 | ECG ---
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
--- NOTE | 2024-03-20 18:37 | ED.PDOC ---
History of Present Illness HPI Comments 24 y/o M, with a Hx of Hx of anxiety, asthma, HLD, HTN, and tachycardia, presents with c/o palpitations and shortness of breath, today. Patient endorses on sudden and unprovoked onset of symptoms, while standing in his room, this evening. He comments on checking and measuring his heart rate and blood pressure and noticing both value also being elevated prior to coming to the ED. He endorses o no recent stressors, strenuous activities, substance use/exposure, or additional relevant or pertinent Hx. Patient denies having any chest pain, dizziness, cough, fever, chills, or other associated symptoms or modifiers at this time. Chief Complaint: Palpitations Time Seen by MD: 18:30 Primary Care Provider: tess Reviewed Notes: Nurses Notes, Medications, Allergies Allergies: Coded Allergies: NO KNOWN ALLERGIES (Unverified , 02/22/18) Home Meds Active Scripts Promethazine-Dm (Promethazine Dm 6.25-15 mg/5Ml) 1 Tatyana Tatyana, 5 ML PO TID, #150 ML Prov:CHIO HICKS 02/10/24 Ibuprofen (Ibuprofen) 600 Mg Tab, 1 TAB PO QID, #30 TAB Prov:CHIO HICKS 02/10/24 Azithromycin (ZITHROMAX TABLET) 250 Mg Tb, 250 MG PO DAILY, #6 TAB Prov:CHIO HICKS 02/10/24 Bupropion Hcl (Wellbutrin Sr) 150 Mg Tab, 1 TAB PO BID, #60 TAB 5 Refills Prov:BILL PHILLIPS CONCRETE MIXER TRUCK DRIVER 10/10/23 Dicyclomine Hcl (BENTYL CAPSULE) 10 Mg Cp, 1 CAP PO Q6HPRN, #20 CAP 0 Refills Prov:FAISAL NICOLE PAC 08/27/23 Reported Medications Albuterol Sulfate (Albuterol Sulfate Hfa) 108 Mcg/Act Aer, 2 PUFF IN Q4H PRN for SHORTNESS OF BREATH, AER 09/08/23 Metoprolol Succinate (Metoprolol Succinate Er) 50 Mg Tab, 50 MG PO DAILY, MG 09/08/23 Sertraline Hcl (Sertraline Hcl) 50 Mg Tab, 25 MG PO DAILY, MG 09/08/23 Famotidine (Famotidine) 40 Mg Tab, 40 MG PO HS, TAB 09/08/23 Quetiapine Fumerate (QUETIAPINE FUMARATE) 300 Mg Tab, 300 MG PO HS, MG 09/08/23 Lorazepam (ATIVAN TABLET) 0.5 Mg Tb, 2 TAB PO DAILY PRN for ANXIETY, #30 TAB 09/08/23 Fluticasone Propionate (Nasal) (Allergy Nasal [place] 24 Ho) 50 Mcg/Act Spr, 1 SP RAY NA DAILY, SPRAY 09/08/23 Information Source: Patient Mode of Arrival: Ambulatory Severity: Moderate Timing: Hours Duration: Since onset Prehospital treatment: None Past Medical History PAST MEDICAL HISTORY: Anxiety, Asthma, Depression, High Lipids, HTN Past Medical History (Other): tachycardia Surgical History: Hernia Repair Surgical History (Other): spinal tumor removal Family History Family History: Family hx of DM, Family hx of heart sabina Social History Smoker: Non-Smoker, Other Alcohol: Denies ETOH Use Drugs: Denies Drug Use Lives In: Home Respiratory: reports: shortness of breath Cardiovascular: reports: palpitations All Other Systems: Reviewed and Negative (negative ) Physical Exam General Appearance: Mild Distress, Normal, Other (anxious) HEENT: Normal ENT Inspection, Pharynx Normal, TMs Normal Neck: Full Range of Motion, Non-Tender, Normal, Normal Inspection Respiratory: Chest Non-Tender, Lungs Clear, No Accessory Muscle Use, No Respiratory Distress, Normal Breath Sounds Cardiovascular: No Edema, No JVD, No Murmur, No Gallop, Normal Peripheral Pulses, Regular Rate/Rhythm Breast Exam: Deferred Gastrointestinal: No Organomegaly, Non Tender, No Pulsatile Mass, Normal Bowel Sounds, Soft Genitalia: Deferred Pelvic: Deferred Rectal: Deferred Extremities: No calf tenderness, Normal capillary refill, Normal inspection, Normal range of motion, Non-tender, No pedal edema Musculoskeletal : Apperance: Normal Neurologic: Alert, fiscal services manager II-XII nml as Tested, No Motor Deficits, Normal Affect, Normal Mood, No Sensory Deficits Cerebellar Function: Normal Reflexes: Normal Skin: Dry, Normal Color, Warm Lymphatic: No Adenopathy Was a procedure done? Was a procedure done?: No EKG EKG : Pulse Rate (adult): 135 [place]: Normal Cardiac Rhythm: ST, PVC's Block: None Hypertrophy: None ST: Normal Differential Dx Considerations may include: arrhythmia, tachycardia, electrolyte imbalance, ACS, anxiety X-Ray, Labs, Meds, VS Vital Signs Date Time Temp Pulse Resp B/P (MAP) Pulse Ox O2 Delivery O2 Flow Rate FiO2 03/20/24 18:46 135 03/20/24 18:27 97.9 142 19 121/100 (107) 98 03/20/24 18:25 135 Lab Test 03/20/24 19:22 03/20/24 18:38 Range/Units Troponin I High Sensitivity Pending < 3 L </=54 ng/L White Blood Count 14.8 H 4.4-10.8 10^3/uL Red Blood Count 5.74 4.5-5.90 10^6/uL Hemoglobin 16.8 13.5-17.5 g/dL Hematocrit 48.8 41.0-53.0 % Mean Corpuscular Volume 85.0 80.0-100.0 fL Mean Corpuscular Hemoglobin 29.3 28.0-32.0 pg Mean Corpuscular Hemoglobin Concent 34.5 32.0-36.0 g/dL Red Cell Distribution Width 13.0 11.8-14.3 % Platelet Count 328 140-450 10^3/uL Mean Platelet Volume 8.9 6.9-10.8 fL Neutrophils (%) (Auto) 66.4 37.0-80.0 % Lymphocytes (%) (Auto) 25.1 10.0-50.0 % Monocytes (%) (Auto) 5.5 0.0-12.0 % Eosinophils (%) (Auto) 2.5 0.0-7.0 % Basophils (%) (Auto) 0.5 0.0-2.0 % Neutrophils # (Auto) 9.8 H 1.6-8.6 10 ^3/uL Lymphocytes # (Auto) 3.7 0.4-5.4 10 ^3/uL Monocytes # (Auto) 0.8 0-1.3 10 ^3/uL Eosinophils # (Auto) 0.4 0-0.8 10 ^3/uL Basophils # (Auto) 0.1 0-0.2 10 ^3/uL Nucleated Red Blood Cells 0.1 % Sodium Level 138 136-145 mmol/L Potassium Level 3.7 3.5-5.1 mmol/L Chloride Level 103 98-107 mmol/L Carbon Dioxide Level 24 20-31 mmol/L Anion Gap 11 5-15 Blood Urea Nitrogen 9 9-23 mg/dL Creatinine 1.24 0.700-1.30 mg/dL Glomerular Filtration Rate Calc 83 >90 mL/min BUN/Creatinine Ratio 7.3 L 10.0-20.0 Serum Glucose 130 H 74-106 mg/dL Calcium Level 10.4 8.7-10.4 mg/dL Total Bilirubin 0.6 0.2-1.0 mg/dL Aspartate Amino Transferase (AST) 31 13-40 U/L Alanine Aminotransferase (ALT) 69 H 7-40 U/L Alkaline Phosphatase 104 46-116 U/L Total Protein 8.5 H 5.7-8.2 g/dL Albumin 5.1 H 3.2-4.8 g/dL [place] [id number] Ph: [phone] DIAGNOSTIC IMAGING Diagnostic Imaging Report : [id number] Signed PATIENT: ROBBIE GARCÍA ACCT: [id number] UNIT: [id number] : 2000 LOC: ER ROOM / BED: / AGE / SEX: 24 / M ADM STATUS: REG ER SERVICE 24 ORDERING PHYSICIAN: REA POLLOCK MD PROCEDURE(s): CXRP - CHEST PORTABLE REASON: PALPITATIONS ORDER NUMBER(s): [id number], ACCESSION NUMBER(s): [id number] CHEST RADIOGRAPH Indication: PALPITATIONS Technique: Single frontal view of the chest was obtained Comparison: XY CHEST XRAY 1 VIEW on DOS: 02/10/24, XY CHEST PORTABLE on DOS: 09/08/23, XY CHEST PORTABLE on DOS: 09/06/23 FINDINGS: Lines and Tubes: None Lungs: No focal consolidation. Pleura: No effusion. No pneumothorax. Cardiomediastinal contours: Unremarkable Bones: No acute osseous abnormality. IMPRESSION: 1. No acute cardiopulmonary disease. ATED BY: NAIN FRANCIS Jr., DO DICTATED DATE/TIME: 03/20/241848 SIGNED BY: NAIN FRANCIS Jr., SIGNED DATE/TIME: 03/20/241848 CC: Troponin is three. EKG reveals sinus tach at a rate of 130 without signs of ischemia. Metoprolol 5 mg Q 5 minutes were administered The patient will be admitted to the hospitalist for further evaluation and care with consultation by Cardiology. Time of 1ST Reevaluation: 19:00 Reevaluation 1ST: Unchanged Patient Education/Counseling: Diagnosis, Treatment Family Education/Counseling: No Family Present Departure 1 Departure Time of Disposition: 20:15 Impression: Primary Impression: SVT (supraventricular tachycardia) Additional Impressions: Anxiety Heart palpitations Disposition: ADMITTED INPATIENT Admit to: Tele Condition: Guarded Critical Care Note Critical Care Time?: Yes (35 min-critical care time only) Stability Stability form required: No Heart Score Heart Score: Heart Score Response (Comments) Value History Moderate Suspicious 1 EKG Normal 0 Age <45 0 Risk Factors 1 or 2 risk factors 1 Troponin Normal limit 0 Total 2 I personally scribed for LORIN GATES MD ([email or web address]) on 03/20/24 at 18:37. Electronically submitted by Tao Staley ([email or web address]). I personally scribed for LORIN GATES MD ([email or web address]) on 03/20/24 at 18:46. Electronically submitted by Tao Staley ([email or web address]). LORIN GATES MD Mar 20, 2024 18:37
--- NOTE | 2024-03-20 18:52 | DVH ---
CHEST RADIOGRAPH Indication: PALPITATIONS Technique: Single frontal view of the chest was obtained Comparison: XY CHEST XRAY 1 VIEW on DOS: 02/10/24, XY CHEST PORTABLE on DOS: 09/08/23, XY CHEST PORTAB LE on DOS: 09/06/23 FINDINGS: Lines and Tubes: None Lungs: No focal consolidation. Pleura: No effusion. No pneumothorax. Cardiomediastinal contours: Unremarkable Bones: No acute osseous abnormality. IMPRESSION: 1. No acute cardiopulmonary disease.
[2024-03-20 18:56] LABS: Basophils # (auto) 0.1 10 ^3/uL (0-0.2); Basophils % (auto) 0.5 % (0.0-2.0); Eosinophils # (auto) 0.4 10 ^3/uL (0-0.8); Eosinophils % (auto) 2.5 % (0.0-7.0); Hematocrit 48.8 % (41.0-53.0); Hemoglobin 16.8 g/dL (13.5-17.5); Lymphocytes # (auto) 3.7 10 ^3/uL (0.4-5.4); Lymphocytes % (auto) 25.1 % (10.0-50.0); Mean Corpuscular Hemoglobin 29.3 pg (28.0-32.0); Mean Corpuscular Hgb Conc. 34.5 g/dL (32.0-36.0); Monocytes # (auto) 0.8 10 ^3/uL (0-1.3); Monocytes % (auto) 5.5 % (0.0-12.0); Neutrophils # (auto) 9.8 10 ^3/uL (1.6-8.6); Neutrophils % (auto) 66.4 % (37.0-80.0); Nucleated Red Blood Cells % 0.1 %; Platelet Count (auto) 328 10^3/uL (140-450); Red Blood Cells 5.74 10^6/uL (4.5-5.90); White Blood Cell 14.8 10^3/uL (4.4-10.8)
[2024-03-20 19:15] LABS: Alkaline Phosphatase 104 U/L (46-116); Anion Gap 11 (5-15); Aspartate Aminotransferase 31 U/L (13-40); BUN/Creatinine Ratio 7.3 (10.0-20.0); Carbon Dioxide 24 mmol/L (20-31); Chloride 103 mmol/L (98-107); Potassium 3.7 mmol/L (3.5-5.1); Sodium 138 mmol/L (136-145)
[2024-03-20 19:16] LABS: Bilirubin, Total 0.6 mg/dL (0.2-1.0); Blood Urea Nitrogen 9 mg/dL (9-23); Glucose 130 mg/dL (74-106)
[2024-03-20 19:17] LABS: Alanine Aminotransferase 69 U/L (7-40); Albumin 5.1 g/dL (3.2-4.8); Calcium 10.4 mg/dL (8.7-10.4); Total Protein 8.5 g/dL (5.7-8.2)
[2024-03-20 21:10] VITALS: PULSE 104; RESP 13; O2SAT 97
[2024-03-20] MEDS: METOPROLOL TARTRATE 25 MG TAB PO ONE (21:40)
[2024-03-20] MEDS ORDERED: MORPHINE SULFATE INJ 2 MG/ml SYRG IV PRN (21:45)
[2024-03-20] MEDS ORDERED: NITROGLYCERIN 0.4 MG SL TAB SL PRN (21:45)
[2024-03-20] MEDS ORDERED: ONDANSETRON HCL 4 MG/2 ML VIAL IV PRN (21:45)
[2024-03-20] MEDS: MIRTAZAPINE 30 MG TAB PO ONE (23:47)
[2024-03-21] VITALS (7 sets, daily range): BP systolic 118–140; BP diastolic 65–80; PULSE 75–101; RESP 16–22; TEMP 97.9–98.7; O2SAT 94–98
--- NOTE | 2024-03-21 01:32 | DVHHP2 ---
History of Present Illness Reason for Visit: Palpitations History of Present Illness 24-year-old male presents for evaluation of palpitations. Patient endorses a history of SVT for which he was placed on metoprolol 50 mg daily. He states being weaned off from the metoprolol over the past one month. Currently he is taking 12.5 mg of the metoprolol daily. He reports skipping and day of the dose due to low blood pressure. Today in the morning he developed palpitations when he checked his heart rate with a pulse ox it was reading in the 150s. He reports having mild dizziness. No chest pain. Reports mild shortness for breath. Past Medical History Depression, asthma, dyslipidemia, hypertension and SVT Past Surgical History Hernia repair Family History Noncontributory Smoke: No ALCOHOL: none Drugs: None Lives: with Family Review of Systems Review of Systems Review of systems are currently negative otherwise addressed in HPI. Allergies: Coded Allergies: NO KNOWN ALLERGIES (Unverified , 02/22/18) Medications Current Medications Medications Dose Ordered Sig/Jb Route Start Time Stop Time Status Last Admin Dose Admin Metoprolol Succinate 12.5 mg DAILY PO 03/21/24 10:00 Alprazolam 0.25 mg Q12HP PRN PO 03/20/24 21:45 Aspirin 81 mg DAILY PO 03/21/24 10:00 Bupropion HCl 150 mg BID@07,19 PO 03/21/24 07:00 Ondansetron HCl 4 mg Q4HP PRN IV 03/20/24 21:45 Nitroglycerin 0.4 mg Q5MINP PRN SL 03/20/24 21:45 Morphine Sulfate 2 mg Q30M PRN IV 03/20/24 21:45 Exam Vital Signs Vital Signs Date Time Temp Pulse Resp B/P (MAP) Pulse Ox O2 Delivery O2 Flow Rate FiO2 03/21/24 01:00 72 13 99/60 (73) 94 03/20/24 21:10 99.2 99.2 03/20/24 21:10 Room Air* 0 21 Exam Gen: 24-year-old male in no apparent distress. Skin: Warm, dry, normal color and texture, no rash. HEENT: Normocephalic atraumatic, mucous membranes moist and pink. Neck: Cervical and supraclavicular nodes normal without enlargement, trachea is midline, thyroid gland is normal without masses. Pulmonary: Clear to auscultation and percussion bilaterally. Cardiac: Sinus tachycardia Abdomen: Soft, nontender, nondistended, bowel sounds present all 4 quadrants, no guarding, no rigidity, no organomegaly. Extremities: No cyanosis, clubbing, no edema Neuro: Cranial nerves II through XII grossly intact, normal affect and speech, no focal motor deficits. Labs/Xrays ORDERING PHYSICIAN: SHIRLEY DE SOUZA NP PROCEDURE(s): [facility] - ECHO 2D MODE CARDIAC DOP REASON: svt ORDER NUMBER(s): [id number], ACCESSION NUMBER(s): [id number] APPROVED REPORT EXAM: Two-dimensional and M-mode echocardiogram with Doppler and color Doppler. Blood Pressure: 126/83 mmHg INDICATION SVT RISK FACTORS Height: 73, Weight: 187 DIMENSIONS LVDd 4.7 (3.8-5.7cm) LA (2D) 3.1 (1.9-4.0cm) Aortic Root 3.0 (2.0- 3.7cm) LVDs 3.3 (2.5-4.0cm) LA (MM) (1.9-4.0cm) Aortic Cusp Exc 2.0 (1.5- 2.0cm) EF (%) 57.0 (55-70%) Rt. Atrium (1.9-4.0cm) Asc. Aorta cm IVSd 0.9 (0.7-1.1cm) RV (D) (1.8-2.4cm) PWd 1.1 (0.7-1.1cm) Mitral Valve Mitral Mitral Stenosis E wave 0.62m/s MV Mean GR. mmHg A wave 0.57m/s MV Peak GR. mmHg E/A ratio 1.1 2D MVA cm2 DECEL Time 163ms PRESS 1/2 Time ms Aortic Valve Aortic Valve Aortic Stenosis V1 0.89m/s AO Mean GR. 2mmHg V2 0.96m/s AO Peak GR. 4mmHg LVOT Diameter 2.1 (1.8-2.4cm) Doppler RAO 3.21cm2 Pulmonic Valve V2 0.84m/s Conclusion Normal left ventricular size and dimension. Normal left ventricular systolic function estimated ejection fraction 55%. Normal diastolic function. Normal right ventricular size and dimension. Normal right ventricular systolic function. Normal biatrial size and dimension. Normal aortic valve structure and function. Normal mitral structure function. Normal tricuspid valve structure function. The pulmonary valve is grossly normal. No pericardial effusion. SIGNED BY: DONOVAN COREA MD Labs Test 03/20/24 19:22 03/20/24 18:38 Range/Units Troponin I High Sensitivity < 3 L </=54 ng/L Thyroid Stimulating Hormone (TSH) 5.06 H 0.55-4.78 uIU/mL White Blood Count 14.8 H 4.4-10.8 10^3/uL Red Blood Count 5.74 4.5-5.90 10^6/uL Hemoglobin 16.8 13.5-17.5 g/dL Hematocrit 48.8 41.0-53.0 % Mean Corpuscular Volume 85.0 80.0-100.0 fL Mean Corpuscular Hemoglobin 29.3 28.0-32.0 pg Mean Corpuscular Hemoglobin Concent 34.5 32.0-36.0 g/dL Red Cell Distribution Width 13.0 11.8-14.3 % Platelet Count 328 140-450 10^3/uL Mean Platelet Volume 8.9 6.9-10.8 fL Neutrophils (%) (Auto) 66.4 37.0-80.0 % Lymphocytes (%) (Auto) 25.1 10.0-50.0 % Monocytes (%) (Auto) 5.5 0.0-12.0 % Eosinophils (%) (Auto) 2.5 0.0-7.0 % Basophils (%) (Auto) 0.5 0.0-2.0 % Neutrophils # (Auto) 9.8 H 1.6-8.6 10 ^3/uL Lymphocytes # (Auto) 3.7 0.4-5.4 10 ^3/uL Monocytes # (Auto) 0.8 0-1.3 10 ^3/uL Eosinophils # (Auto) 0.4 0-0.8 10 ^3/uL Basophils # (Auto) 0.1 0-0.2 10 ^3/uL Nucleated Red Blood Cells 0.1 % Sodium Level 138 136-145 mmol/L Potassium Level 3.7 3.5-5.1 mmol/L Chloride Level 103 98-107 mmol/L Carbon Dioxide Level 24 20-31 mmol/L Anion Gap 11 5-15 Blood Urea Nitrogen 9 9-23 mg/dL Creatinine 1.24 0.700-1.30 mg/dL Glomerular Filtration Rate Calc 83 >90 mL/min BUN/Creatinine Ratio 7.3 L 10.0-20.0 Serum Glucose 130 H 74-106 mg/dL Calcium Level 10.4 8.7-10.4 mg/dL Total Bilirubin 0.6 0.2-1.0 mg/dL Aspartate Amino Transferase (AST) 31 13-40 U/L Alanine Aminotransferase (ALT) 69 H 7-40 U/L Alkaline Phosphatase 104 46-116 U/L Total Protein 8.5 H 5.7-8.2 g/dL Albumin 5.1 H 3.2-4.8 g/dL Assessment/Plan Assessment/Plan Assessment Tachycardia Palpitations History of SVT Plan Admit the patient to telemetry to the hospitalist Cardiology consultation Resume home medications Continue treatment per orders. Plan discussed with: Patient My Orders Orders - SHIRLEY DE SOUZA Procedure Category Date Status Time * Cardiology Consult CONS 03/20/24 Transmitted 21:41 Alprazolam Tablet PHA 03/20/24 In Process (Xanax Tablet) 21:45 Aspirin Tablet PHA 03/21/24 In Process 10:00 Bupropion Tablet PHA 03/21/24 In Process (Wellbutrin Tablet) 07:00 Admit ADMIT 03/20/24 Transmitted 21:41 Ondansetron Hcl PHA 03/20/24 In Process (Zofran) 21:45 Cardiac DIET 03/21/24 Transmitted Diet-2gna,Lofat,Lochol Breakfast Condition: Fair BUTCH 03/20/24 In Process 21:41 Bedrest With Bathroom BUTCH 03/20/24 In Process Privileg 21:41 Nitroglycerin PHA 03/20/24 In Process Sublingual (Ntrostat 21:45 Morphine Sulfate PHA 03/20/24 In Process Injection 21:45 Stat Ekg For Chest BUTCH 03/20/24 In Process Pain 21:41 Notify Md Of Changes BUTCH 03/20/24 In Process From Base 21:41 [place]in [employer] For BUTCH 03/20/24 In Process 24 Hours 21:41 Emergency Dysrhythmia BUTCH 03/20/24 In Process Protocol 21:41 Rhythm Strips Once BUTCH 03/20/24 In Process Every Shift 21:41 Oxygen By Nasal RT 03/20/24 Transmitted Cannula 21:41 Metoprolol Xl PHA 03/21/24 In Process Succinate (Toprol Xl) 10:00 Date of Service: Mar 20, 2024 Billing Provider: SHIRLEY DE SOUZA Common Visit Codes: [id number] INP/OBS CARE (HIGH) SHIRLEY DE SOUZA Mar 21, 2024 01:32
[2024-03-21] MEDS: buPROPion HCL 75 MG TAB PO SCH (07:12)
[2024-03-21 10:19] LABS: Basophils # (auto) 0 10 ^3/uL (0-0.2); Basophils % (auto) 0.4 % (0.0-2.0); Eosinophils # (auto) 0.3 10 ^3/uL (0-0.8); Eosinophils % (auto) 2.6 % (0.0-7.0); Hematocrit 48.4 % (41.0-53.0); Hemoglobin 16.5 g/dL (13.5-17.5); Lymphocytes # (auto) 1.7 10 ^3/uL (0.4-5.4); Lymphocytes % (auto) 15.9 % (10.0-50.0); Mean Corpuscular Hemoglobin 29.3 pg (28.0-32.0); Mean Corpuscular Volume 86.1 fL (80.0-100.0); Monocytes # (auto) 0.6 10 ^3/uL (0-1.3); Monocytes % (auto) 5.5 % (0.0-12.0); Neutrophils # (auto) 8.2 10 ^3/uL (1.6-8.6); Neutrophils % (auto) 75.6 % (37.0-80.0); Nucleated Red Blood Cells % 0.1 %; Platelet Count (auto) 272 10^3/uL (140-450); Red Blood Cells 5.62 10^6/uL (4.5-5.90); Red Cell Distribution Width 13.5 % (11.8-14.3); White Blood Cell 10.9 10^3/uL (4.4-10.8)
[2024-03-21 10:24] LABS: Chloride 103 mmol/L (98-107); Potassium 4.5 mmol/L (3.5-5.1); Sodium 140 mmol/L (136-145)
[2024-03-21 10:25] LABS: Anion Gap 9 (5-15); Carbon Dioxide 28 mmol/L (20-31)
[2024-03-21 10:30] LABS: BUN/Creatinine Ratio 10.8 (10.0-20.0); Blood Urea Nitrogen 12 mg/dL (9-23)
[2024-03-21 10:31] LABS: Blood Alcohol 3.5 mg/dL (<10)
[2024-03-21 10:33] LABS: Calcium 10.4 mg/dL (8.7-10.4); Glucose 144 mg/dL (74-106)
[2024-03-21 10:54] LABS: Free T3 3.99 pg/mL (2.3-4.2); Free T4 (Free Thyroxine) 1.21 ng/dL (0.89-1.76)
[2024-03-21] MEDS: ASPirin 81 mg TAB PO SCH (11:10)
[2024-03-21] MEDS: METOPROLOL SUCCINATE XL 50 MG TAB PO SCH (11:11)
[2024-03-21 11:45] LABS: Urine Bacteria None Seen /hpf (None Seen)
[2024-03-21] MEDS: PARoxetine 20 MG TAB PO SCH (12:14)
[2024-03-21 12:24] LABS: Urine Blood Negative /uL (Negative); Urine Clarity Clear (Clear); Urine Color Light-Yellow (Yellow); Urine Mucus FEW (None Seen); Urine Protein, UAD Negative (Negative); Urine Squamous Epithelial Cell None Seen /hpf (<5); Urine Urobilinogen Normal (Negative); Urine WBC <1 /hpf (0 - 3)
[2024-03-21 12:28] LABS: Amphetamine Screen, Urine Neg (NEGATIVE); Barbiturate Scree,Urine Neg (NEGATIVE); Benzodiazephine Screen, Urine Neg (NEGATIVE); Cannabinoid Screen, Urine Neg (NEGATIVE); Cocaine Screen, Urine Neg (NEGATIVE); Opiate Scree,Urine Neg (NEGATIVE); Phencyclidine Screen, Urine Neg (NEGATIVE)
--- NOTE | 2024-03-21 13:21 | DVHINCON2 ---
Date of service: Mar 22, 2024 History of Present Illness 24 yo M with hx of SVT in august 2023 per notes (not really confirmed) on low dose bb admitted for tachycardia. ecg showed sinus tach. pt is weaning down on BB with me. Past Medical History reviewed Allergies: Coded Allergies: NO KNOWN ALLERGIES (Unverified , 02/22/18) Home Meds Active Scripts Promethazine-Dm (Promethazine Dm 6.25-15 mg/5Ml) 1 Tatyana Tatyana, 5 ML PO TID, #150 ML Prov:CHIO HICKS CO 02/10/24 Ibuprofen (Ibuprofen) 600 Mg Tab, 1 TAB PO QID, #30 TAB Prov:CHIO HICKS 02/10/24 Azithromycin (ZITHROMAX TABLET) 250 Mg Tb, 250 MG PO DAILY, #6 TAB Prov:CHIO HICKS CO 02/10/24 Bupropion Hcl (Wellbutrin Sr) 150 Mg Tab, 1 TAB PO BID, #60 TAB 5 Refills Prov:BILL PHILLIPS UNDERBASTER 10/10/23 Dicyclomine Hcl (BENTYL CAPSULE) 10 Mg Cp, 1 CAP PO Q6HPRN, #20 CAP 0 Refills Prov:FAISAL NICOLE PAC 08/27/23 Reported Medications Mirtazapine (Remeron) 15 Mg Tab, 15 MG PO HS, TAB 03/21/24 Lorazepam (Ativan) 0.5 Mg Tab, 0.25 TAB PO DAILY, #30 TAB 03/21/24 Albuterol Sulfate (Albuterol Sulfate Hfa) 108 Mcg/Act Aer, 2 PUFF IN Q4H PRN for SHORTNESS OF BREATH, AER 09/08/23 Metoprolol Succinate (Metoprolol Succinate Er) 50 Mg Tab, 50 MG PO DAILY, MG 09/08/23 Sertraline Hcl (Sertraline Hcl) 50 Mg Tab, 25 MG PO DAILY, MG 09/08/23 Famotidine (Famotidine) 40 Mg Tab, 40 MG PO HS, TAB 09/08/23 Quetiapine Fumerate (QUETIAPINE FUMARATE) 300 Mg Tab, 300 MG PO HS, MG 09/08/23 Lorazepam (ATIVAN TABLET) 0.5 Mg Tb, 2 TAB PO DAILY PRN for ANXIETY, #30 TAB 09/08/23 Fluticasone Propionate (Nasal) (Allergy Nasal [place] 24 Ho) 50 Mcg/Act Spr, 1 SPRAY NA DAILY, SPRAY 09/08/23 Current Medications Current Medications Medications (Trade) Dose Ordered Sig/Jb Route PRN Reason Start Time Stop Time Status Last Admin Metoprolol Succinate (Toprol Xl) 12.5 mg DAILY PO 03/21/24 10:00 03/21/24 11:11 Alprazolam (Xanax Tablet) 0.25 mg Q12HP PRN PO ANXIETY 03/20/24 21:45 Aspirin 81 mg DAILY PO 03/21/24 10:00 03/21/24 11:10 Bupropion HCl (Wellbutrin Tablet) 150 mg BID@07,19 PO 03/21/24 07:00 03/21/24 09:49 DC Ondansetron HCl (Zofran) 4 mg Q4HP PRN IV NAUSEA / VOMITING 03/20/24 21:45 Nitroglycerin (Ntrostat Sublingual) 0.4 mg Q5MINP PRN SL FOR CHEST PAIN 03/20/24 21:45 Morphine Sulfate 2 mg Q30M PRN IV FOR CHEST PAIN 03/20/24 21:45 Paroxetine HCl (Paxil Tablet) 15 mg DAILY PO 03/21/24 10:00 03/21/24 12:14 Review of Systems 10 pt ros otherwise negative Vital Signs Vital Signs Date Time Temp Pulse Resp B/P (MAP) Pulse Ox O2 Delivery O2 Flow Rate FiO2 03/21/24 11:11 91 122/72 03/21/24 07:30 98.1 22 94 98.1 03/21/24 07:30 Room Air* 0 21 Physical Exam nad s1 s2 rrr ctab soft nt/nd no edema Labs/Diagnostic Data Labs Test 03/21/24 11:05 03/21/24 09:55 03/20/24 19:22 03/20/24 18:38 Range/Units Urine Color Light-yellow Yellow Urine Clarity Clear Clear Urine pH 6.0 5.0-9.0 Urine Specific [place] 1.020 1.001-1.035 Urine Protein Negative Negative Urine Ketones Negative Negative Urine Blood Negative Negative /uL Urine Nitrite Negative Negative Urine Bilirubin Negative Negative Urine Urobilinogen Normal Negative mg/dL Urine Leukocyte Esterase Negative Negative /uL Urine RBC <1 0 - 3 /hpf Urine WBC <1 0 - 3 /hpf Urine Squamous Epithelial Cells None seen <5 /hpf Urine Bacteria None seen None Seen /hpf Urine Mucus Few None Seen Urine Glucose Normal Normal mg/dL Urine Opiates Screen Neg NEGATIVE Urine Fentanyl Screen Neg NEGATIVE Urine Barbiturates Screen Neg NEGATIVE Urine Phencyclidine Screen Neg NEGATIVE Urine Amphetamines Screen Neg NEGATIVE Urine Benzodiazepines Screen Neg NEGATIVE Urine Cocaine Screen Neg NEGATIVE Urine Cannabinoids Screen Neg NEGATIVE White Blood Count 10.9 #H 4.4-10.8 10^3/uL Red Blood Count 5.62 4.5-5.90 10^6/uL Hemoglobin 16.5 13.5-17.5 g/dL Hematocrit 48.4 41.0-53.0 % Mean Corpuscular Volume 86.1 80.0-100.0 fL Mean Corpuscular Hemoglobin 29.3 28.0-32.0 pg Mean Corpuscular Hemoglobin Concent 34.0 32.0-36.0 g/dL Red Cell Distribution Width 13.5 11.8-14.3 % Platelet Count 272 140-450 10^3/uL Mean Platelet Volume 9.1 6.9-10.8 fL Neutrophils (%) (Auto) 75.6 37.0-80.0 % Lymphocytes (%) (Auto) 15.9 10.0-50.0 % Monocytes (%) (Auto) 5.5 0.0-12.0 % Eosinophils (%) (Auto) 2.6 0.0-7.0 % Basophils (%) (Auto) 0.4 0.0-2.0 % Neutrophils # (Auto) 8.2 1.6-8.6 10 ^3/uL Lymphocytes # (Auto) 1.7 0.4-5.4 10 ^3/uL Monocytes # (Auto) 0.6 0-1.3 10 ^3/uL Eosinophils # (Auto) 0.3 0-0.8 10 ^3/uL Basophils # (Auto) 0 0-0.2 10 ^3/uL Nucleated Red Blood Cells 0.1 % Sodium Level 140 136-145 mmol/L Potassium Level 4.5 3.5-5.1 mmol/L Chloride Level 103 98-107 mmol/L Carbon Dioxide Level 28 20-31 mmol/L Anion Gap 9 5-15 Blood Urea Nitrogen 12 9-23 mg/dL Creatinine 1.11 0.700-1.30 mg/dL Glomerular Filtration Rate Calc 95 >90 mL/min BUN/Creatinine Ratio 10.8 10.0-20.0 Serum Glucose 144 H 74-106 mg/dL Calcium Level 10.4 8.7-10.4 mg/dL Free Thyroxine (T4) Calculated 1.21 0.89-1.76 ng/dL Free Triiodothyronine (T3) pg/mL 3.99 2.3-4.2 pg/mL Plasma/Serum Blood Alcohol 3.5 <10 mg/dL Troponin I High Sensitivity < 3 L </=54 ng/L Thyroid Stimulating Hormone (TSH) 5.06 H 0.55-4.78 uIU/mL Total Bilirubin 0.6 0.2-1.0 mg/dL Aspartate Amino Transferase (AST) 31 13-40 U/L Alanine Aminotransferase (ALT) 69 H 7-40 U/L Alkaline Phosphatase 104 46-116 U/L Total Protein 8.5 H 5.7-8.2 g/dL Albumin 5.1 H 3.2-4.8 g/dL Assessment tachycardia hypotension r/o POTS r/o SVT Plan/Recommendation admit to tele check echo , r/o CHF cont BB for now anxiety meds as needed Plan discussed with: Patient JAMAR ORTEGA MD Mar 21, 2024 13:21
--- NOTE | 2024-03-21 14:34 | DVHPNRES ---
Progress Note Date Seen: Mar 21, 2024 Resident Creating Document: MAYANK LEON RESIDENT Medical Necessity Reason Pt with a Central, PICC or Fol: No Subjective Review of Systems Patient is 4 years old male with past medical history of SVT, hypertension, hyperlipidemia, asthma, depression, panic attack came with a complaint of palpitation. As per patient he had palpitation at home his positive went up to 150. Patient also endorsed some dizziness and shortness of breaths with the palpitation. As per patient he was on metoprolol for hypertension and SVT but metoprolol would cause him hypotension and his detective captain tried to wean him off metoprolol. His initial metoprolol dose was 50 mg q.d. which lower down to 12.5 mg q.d. gradually 4 days before. Following that he started having palpitation with increased heart rate at home as per patient it went up to 185 per minute yesterday. Patient also reported that his heart rate goes up when he sit up from lying position or stands up from sitting position then heart rate gradually comes down to the baseline. Patient also reported that even with the low dose of metoprolol he was having hypotension especially at night which would bring his systolic around 70s at night. Patient denied any chest pain, blacked out, dysuria, acute joint pain or swelling, sick contact, fever, dysarthria or change in vision. Patient had history of SVT in August,. Initial lab workup revealed WBC 14.8, GFR 83, ALT 69, albumin 5.1, other labs within normal limit. EKG revealed sinus tachycardia with a heart rate 130. CXR no acute cardiopulmonary disease. PMH-history of SVT, hypertension, hyperlipidemia, asthma, depression, panic attack PSH- spinal surgery in the lumbar region for ependymoma, status post radiation therapy Allergy- NKDA Personal History/ Social History-X pot user denies smoking/alcoholism/drug abuse Patient was seen today at the bedside. Patient Cardiovascular- deny acute chest pain Respiratory- denies cough oror wheezing Gastrointestinal- denies any rectal bleeding, nausea or vomiting Musculoskeletal-denies acute joint swelling or tenderness or redness Neurological- denies acute dysarthria, dysphagia, change in vision Psychiatry- denies depression or SI or HI Skin- denies acute rash or purpura Patient was seen today for clinical evaluation. Labs and chart reviewed. Patient reports feeling better today, patient with a sinus rhythm. Denied acute chest pain or shortness of breath. Patient with a reflex tachycardia on change in position from lying to sitting or sitting to standing position which gradually come back to the baseline. Patient was seen by Cardiology, recommendation reviewed and appreciated. Objective vital signs Vital Sign Date Time Temp Pulse Resp B/P (MAP) Pulse Ox O2 Delivery O2 Flow Rate FiO2 03/21/24 13:00 85 14 112/73 (86) 98 03/21/24 07:30 98.1 98.1 03/21/24 07:30 Room Air* 0 21 medications Current Medications Medications Dose Ordered Sig/Jb Route Start Time Stop Time Status Last Admin Dose Admin Metoprolol Succinate 12.5 mg DAILY PO 03/21/24 10:00 03/21/24 11:11 12.5 MG Alprazolam 0.25 mg Q12HP PRN PO 03/20/24 21:45 Aspirin 81 mg DAILY PO 03/21/24 10:00 03/21/24 11:10 81 MG Ondansetron HCl 4 mg Q4HP PRN IV 03/20/24 21:45 Nitroglycerin 0.4 mg Q5MINP PRN SL 03/20/24 21:45 Morphine Sulfate 2 mg Q30M PRN IV 03/20/24 21:45 Paroxetine HCl 15 mg DAILY PO 03/21/24 10:00 03/21/24 12:14 15 MG Examination General examination- awake, alert, oriented conversant HEENT- PEERLA, no acute nasal discharge Cardiovascular- S1-S2 audible, rate and rhythm regular, no murmur Respiratory- CTAB, no wheeze or rhonchi Gastrointestinal-nontender, bowel sound+. Nondistended Musculoskeletal-no acute joint swelling or tenderness or redness# Lower extremity- no leg edema Neurological- cranial nerves intact, no acute dysarthria or dysphagia Psychiatry- denies depression or SI or HI Skin- no acute rash or purpura laboratory and microbiology Laboratory Tests 03/21/24 09:55 Test 03/21/24 09:55 Range/Units Serum Glucose 144 H 74-106 mg/dL Problem List/Assessment/Plan Problem List/Assessment/Plan Acute on chronic Palpitation likely due to with sinus tachycardia Reflex Sinus tachycardia with change in position Hypertension History of SVT Hyperlipidemia History of panic attack Suspected subclinical hypothyroidism Depression Asthma Leukocytosis Continue metoprolol 12.5 mg p.o. daily Continue aspirin 81 mg p.o. daily Xanax 0.25 mg p.o. q.12 hours p.r.n. Continue but oxygen 50 mg p.o. daily Goals of care/advance care planning; FULL CODE; discussed with the patient >15 minutes PUD prophylaxis: Not necessary DVT prophylaxis: Patient ambulating Plan discussed with Dr. William, nursing staff, patient Total time spent on patient evaluation, chart review, assessment and plan, discussion discussion >30 minutes Plan discussed with: Patient Plan discussed with: Patient, Other (Mother, RN) Date of Service: Mar 21, 2024 Billing Provider: NEHEMIAH WILLIAM MD Common Visit Codes: [id number] INP/OBS CARE(HIGH) MAYANK LEON RESIDENT Mar 21, 2024 14:34 NEHEMIAH WILLIAM MD Mar 21, 2024 20:48
[2024-03-21] MEDS: ALPRAZolam 0.25 MG TAB PO PRN (14:59)
[2024-03-21] MEDS ORDERED: LORA-655 PO (15:08)
--- NOTE | 2024-03-21 16:28 | DVHSR ---
APPROVED REPORT EXAM: Two-dimensional and M-mode echocardiogram with Doppler and color Doppler. Blood Pressure: 112/73 mmHg INDICATION svt RISK FACTORS Height: 6'1, Weight: 176 DIMENSIONS LVDd4.9 (3.8-5.7cm)LA (2D)2.8 (1.9-4.0cm)Aortic Root3.0 (2.0-3.7cm) LVDs3.3 (2.5-4.0cm)LA (MM) (1.9-4.0cm)Aortic Cusp Exc1.9 (1.5-2.0cm) EF (%) 60.0 (55-70%)Rt. Atrium2.7 (1.9-4.0cm)Asc. Aorta2.4 cm IVSd0.7 (0.7-1.1cm)RV (D) (1.8-2.4cm) PWd0.7 (0.7-1.1cm) Mitral Valve MitralMitral Stenosis E wave0.49m/sMV Mean GR.mmHg A wave0.34m/sMV Peak GR.mmHg E/A ratio1.42D MVAcm2 DECEL [id number] 1/2 [place] Aortic Valve Aortic ValveAortic Stenosis V10.74m/[place] Mean GR.2mmHg V20.86m/[place] Peak GR.3mmHg LVOT Diameter2.1 (1.8-2.4cm)Doppler AVA2.98cm2 Pulmonic Valve V20.69m/s Conclusion lvef 55% by visual estimate noraml RV function normal atria mild tricuspid regurg
[2024-03-21] MEDS ORDERED: LORazepam 0.5 MG TAB PO PRN (17:00)
[2024-03-21] MEDS: LORazepam 0.5 MG TAB PO ONE ×2 (19:40)
[2024-03-21] MEDS ORDERED: MIRT-93 PO (23:43)
[2024-03-22 01:00] VITALS: BP 109/68; PULSE 88; RESP 17; TEMP 98.2; O2SAT 97
[2024-03-22 05:00] VITALS: BP 140/80; PULSE 87; RESP 18; TEMP 98.4; O2SAT 99
[2024-03-22 07:18] LABS: Basophils # (auto) 0.1 10 ^3/uL (0-0.2); Basophils % (auto) 0.7 % (0.0-2.0); Eosinophils # (auto) 0.5 10 ^3/uL (0-0.8); Eosinophils % (auto) 4.6 % (0.0-7.0); Hematocrit 46.8 % (41.0-53.0); Hemoglobin 16.1 g/dL (13.5-17.5); Lymphocytes # (auto) 2.3 10 ^3/uL (0.4-5.4); Lymphocytes % (auto) 22.2 % (10.0-50.0); Mean Corpuscular Hemoglobin 29.5 pg (28.0-32.0); Mean Corpuscular Hgb Conc. 34.3 g/dL (32.0-36.0); Mean Corpuscular Volume 86.2 fL (80.0-100.0); Monocytes # (auto) 0.8 10 ^3/uL (0-1.3); Monocytes % (auto) 8.1 % (0.0-12.0); Neutrophils # (auto) 6.8 10 ^3/uL (1.6-8.6); Neutrophils % (auto) 64.4 % (37.0-80.0); Nucleated Red Blood Cells % 0.1 %; Platelet Count (auto) 262 10^3/uL (140-450); Red Blood Cells 5.44 10^6/uL (4.5-5.90); Red Cell Distribution Width 13.2 % (11.8-14.3); White Blood Cell 10.5 10^3/uL (4.4-10.8)
[2024-03-22 07:31] LABS: Chloride 104 mmol/L (98-107); Potassium 4.2 mmol/L (3.5-5.1); Sodium 139 mmol/L (136-145)
[2024-03-22 07:32] LABS: Anion Gap 8 (5-15); Carbon Dioxide 27 mmol/L (20-31)
[2024-03-22 07:33] LABS: Calcium 10.3 mg/dL (8.7-10.4)
[2024-03-22 07:37] LABS: BUN/Creatinine Ratio 10.4 (10.0-20.0); Blood Urea Nitrogen 13 mg/dL (9-23); Glucose 88 mg/dL (74-106)
[2024-03-22 07:38] LABS: Magnesium 2.2 mg/dL (1.6-2.6)
[2024-03-22 07:56] VITALS: PULSE 72
[2024-03-22 08:34] VITALS: BP 113/69; PULSE 66; RESP 18; TEMP 98.3; O2SAT 100
[2024-03-22] MEDS ORDERED: LORazepam 0.5 MG TAB PO SCH ×3 (10:00)
[2024-03-22 11:50] VITALS: BP 119/76; PULSE 83; RESP 18; TEMP 98.2; O2SAT 99
--- NOTE | 2024-03-22 12:46 | DVHPN2 ---
Progress Note Date Seen: Mar 22, 2024 Medical Necessity Reason Pt with a Central, PICC or Fol: No Subjective Patient reports: Feels better Objective vital signs Vital Sign Date Time Temp Pulse Resp B/P (MAP) Pulse Ox O2 Delivery O2 Flow Rate FiO2 03/22/24 11:50 98.2 83 18 119/76 (90) 99 98.2 03/22/24 08:00 Room Air* 0 21 Total Intake and Output 03/21/24 03/21/24 03/22/24 15:00 23:00 07:00 Intake Total 150 ml 1100 ml Balance 150 ml 1100 ml medications Current Medications Medications Dose Ordered Sig/Jb Route Start Time Stop Time Status Last Admin Dose Admin Metoprolol Succinate 12.5 mg DAILY PO 03/21/24 10:00 03/22/24 09:41 12.5 MG Aspirin 81 mg DAILY PO 03/21/24 10:00 03/22/24 09:38 81 MG Ondansetron HCl 4 mg Q4HP PRN IV 03/20/24 21:45 Nitroglycerin 0.4 mg Q5MINP PRN SL 03/20/24 21:45 Morphine Sulfate 2 mg Q30M PRN IV 03/20/24 21:45 Paroxetine HCl 15 mg DAILY PO 03/21/24 10:00 03/22/24 09:37 15 MG Lorazepam 1 mg DAILY PRN PO 03/21/24 17:00 Lorazepam 0.75 mg DAILY PO 03/22/24 14:00 Mirtazapine 15 mg HS PO 03/22/24 21:00 Examination: GENERAL:Abnormal, HEENT:Abnormal, LUNGS:Abnormal, CVS:Abnormal, ABDOMEN:Abnormal laboratory and microbiology Laboratory Tests 03/22/24 06:31 Test 03/22/24 06:31 Range/Units Serum Glucose 88 74-106 mg/dL Problem List/Assessment/Plan Problem List/Assessment/Plan suspected POTS----pt has lot of sinus arrhythmia and sinus tach notes are not clear about this SVT hx from august 2023 , outpt event monitor would start pt on ivabradine 2.5 mg po bid dc BB dc home when medically stable pt agrees to plan he should get [facility] [place] [facility] Plan discussed with: Patient My Orders My Orders Orders - JAMAR ORTEGA MD Procedure Category Date Status Time Echo 2d Mode Cardiac US 03/21/24 Resulted DOP 13:21 Date of Service: Mar 22, 2024 Billing Provider: JAMAR ORTEGA MD Common Visit Codes: NOT BILLABLE JAMAR ORTEGA MD Mar 22, 2024 12:46
[2024-03-22] MEDS ORDERED: IVAB5TAB2 PO (13:22)
[2024-03-22] MEDS: LORazepam 0.5 MG TAB PO SCH (14:30)
--- NOTE | 2024-03-22 14:36 | DVHDSRES ---
Discharge Summary Date of Admission Resident Creating Document: MAYANK LEON RESIDENT Mar 20, 2024 at 21:41 Date of Discharge: Mar 22, 2024 Admitting Diagnosis Acute palpitation with dizziness suspected SVT Labs/Diagnostic Data: Laboratory Results Test 03/22/24 06:31 03/21/24 11:05 03/21/24 09:55 03/20/24 19:22 White Blood Count 10.5 10^3/uL (4.4-10.8) Red Blood Count 5.44 10^6/uL (4.5-5.90) Hemoglobin 16.1 g/dL (13.5-17.5) Hematocrit 46.8 % (41.0-53.0) Mean Corpuscular Volume 86.2 fL (80.0-100.0) Mean Corpuscular Hemoglobin 29.5 pg (28.0-32.0) Mean Corpuscular Hemoglobin Concent 34.3 g/dL (32.0-36.0) Red Cell Distribution Width 13.2 % (11.8-14.3) Platelet Count 262 10^3/uL (140-450) Mean Platelet Volume 8.8 fL (6.9-10.8) Neutrophils (%) (Auto) 64.4 % (37.0-80.0) Lymphocytes (%) (Auto) 22.2 % (10.0-50.0) Monocytes (%) (Auto) 8.1 % (0.0-12.0) Eosinophils (%) (Auto) 4.6 % (0.0-7.0) Basophils (%) (Auto) 0.7 % (0.0-2.0) Neutrophils # (Auto) 6.8 10 ^3/uL (1.6-8.6) Lymphocytes # (Auto) 2.3 10 ^3/uL (0.4-5.4) Monocytes # (Auto) 0.8 10 ^3/uL (0-1.3) Eosinophils # (Auto) 0.5 10 ^3/uL (0-0.8) Basophils # (Auto) 0.1 10 ^3/uL (0-0.2) Nucleated Red Blood Cells 0.1 % Sodium Level 139 mmol/L (136-145) Potassium Level 4.2 mmol/L (3.5-5.1) Chloride Level 104 mmol/L (98-107) Carbon Dioxide Level 27 mmol/L (20-31) Anion Gap 8 (5-15) Blood Urea Nitrogen 13 mg/dL (9-23) Creatinine 1.25 mg/dL (0.700-1.30) Glomerular Filtration Rate Calc 82 mL/min (>90) BUN/Creatinine Ratio 10.4 (10.0-20.0) Serum Glucose 88 mg/dL (74-106) Calcium Level 10.3 mg/dL (8.7-10.4) Magnesium Level 2.2 mg/dL (1.6-2.6) Urine Color Light-yellow (Yellow) Urine Clarity Clear (Clear) Urine pH 6.0 (5.0-9.0) Urine Specific [place] 1.020 (1.001-1.035) Urine Protein Negative (Negative) Urine Ketones Negative (Negative) Urine Blood Negative /uL (Negative) Urine Nitrite Negative (Negative) Urine Bilirubin Negative (Negative) Urine Urobilinogen Normal mg/dL (Negative) Urine Leukocyte Esterase Negative /uL (Negative) Urine RBC <1 /hpf (0 - 3) Urine WBC <1 /hpf (0 - 3) Urine Squamous Epithelial Cells None seen /hpf (<5) Urine Bacteria None seen /hpf (None Seen) Urine Mucus Few (None Seen) Urine Glucose Normal mg/dL (Normal) Urine Opiates Screen Neg (NEGATIVE) Urine Fentanyl Screen Neg (NEGATIVE) Urine Barbiturates Screen Neg (NEGATIVE) Urine Phencyclidine Screen Neg (NEGATIVE) Urine Amphetamines Screen Neg (NEGATIVE) Urine Benzodiazepines Screen Neg (NEGATIVE) Urine Cocaine Screen Neg (NEGATIVE) Urine Cannabinoids Screen Neg (NEGATIVE) Free Thyroxine (T4) Calculated 1.21 ng/dL (0.89-1.76) Free Triiodothyronine (T3) pg/mL 3.99 pg/mL (2.3-4.2) Plasma/Serum Blood Alcohol 3.5 mg/dL (<10) Troponin I High Sensitivity < 3 ng/L (</=54) Thyroid Stimulating Hormone (TSH) 5.06 uIU/mL (0.55-4.78) Test 03/20/24 18:38 Total Bilirubin 0.6 mg/dL (0.2-1.0) Aspartate Amino Transferase (AST) 31 U/L (13-40) Alanine Aminotransferase (ALT) 69 U/L (7-40) Alkaline Phosphatase 104 U/L (46-116) Total Protein 8.5 g/dL (5.7-8.2) Albumin 5.1 g/dL (3.2-4.8) Other Laboratory Tests 03/22/24 06:31 Brief Hx & Hospital Course: Patient is 4 years old male with past medical history of SVT, hypertension, hyperlipidemia, asthma, depression, panic attack came with a complaint of palpitation. As per patient he had palpitation at home his positive went up to 150. Patient also endorsed some dizziness and shortness of breaths with the palpitation. As per patient he was on metoprolol for hypertension and SVT but metoprolol would cause him hypotension and his game designer/creative director tried to wean him off metoprolol. His initial metoprolol dose was 50 mg q.d. which lower down to 12.5 mg q.d. gradually 4 days before. Following that he started having palpitation with increased heart rate at home as per patient it went up to 185 per minute yesterday. Patient also reported that his heart rate goes up when he sit up from lying position or stands up from sitting position then heart rate gradually comes down to the baseline. Patient also reported that even with the low dose of metoprolol he was having hypotension especially at night which would bring his systolic around 70s at night. Patient denied any chest pain, blacked out, dysuria, acute joint pain or swelling, sick contact, fever, dysarthria or change in vision. Patient had history of SVT in August,. Initial lab workup revealed WBC 14.8, GFR 83, ALT 69, albumin 5.1, other labs within normal limit. EKG revealed sinus tachycardia with a heart rate 130. CXR no acute cardiopulmonary disease. During hospital course patient was treated conservatively. Patient's symptoms improved and patient was at his baseline of function. Patient was adamant about going home today. Was counseled about the risks of going home today. Patient was seen by Cardiology, recommendation reviewed and appreciated. Cardiology recommend out patient event monitor, started patient on IV Ivabradine 2.5 mg p.o. b.i.d. patient agreed with the plan of care. Patient was advised to follow up at [facility] at [facility] further evaluation and care. Patient was discharged home with Ivabradine 2.5 mg p.o. b.i.d. and advised to follow up at [facility] as recommended by game designer/creative director Dr. Ortega. Patient verbalized understanding. Patient's meds were sent to the pharmacy electronically. Patient was hemodynamically stable on discharge. General examination- awake, alert, oriented conversant HEENT- PEERLA, no acute nasal discharge Cardiovascular- S1-S2 audible, rate and rhythm regular, no murmur Respiratory- CTAB, no wheeze or rhonchi Gastrointestinal-nontender, bowel sound+. Nondistended Musculoskeletal-no acute joint swelling or tenderness or redness# Lower extremity- no leg edema Neurological- cranial nerves intact, no acute dysarthria or dysphagia Psychiatry- denies depression or SI or HI Skin- no acute rash or purpura Operations or Procedures ELECTROCARDIOGRAM REPORT PATIENT: ROBBIE GARCÍA ACCT: [id number] : 2000 LOC: [facility] ROOM / BED: [facility] / AGE / SEX: 24 / M ADM STATUS: ADM IN SERVICE 24 UNIT: [id number] ORDERING PHYSICIAN: REA POLLOCK MD PROCEDURE(s): EKG - ELECTROCARDIGRAM ORDER NUMBER(s): [id number], ACCESSION NUMBER(s): [id number] [facility] Test Date: 2024-03-20 Test Time: 18:25:07 Pat Name: ROBBIE GARCÍA Department: ER Room: [facility] Gender: M 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 DICTATED BY:MARIA TERESA BOTELLO Sr., MD DICTATED DATE/TIME:03/20/241824 ELECTRONICALLY SIGNED BY:MARIA TERESA BOTELLO Sr., MD 03/21/241826 ELECTRONICALLY CO-SIGNED BY: Signed PATIENT: ROBBIE GARCÍA ACCT: [id number] UNIT: [id number] : 2000 LOC: ER ROOM / BED: / AGE / SEX: 24 / M ADM STATUS: REG ER SERVICE 24 ORDERING PHYSICIAN: ERA POLLOCK MD PROCEDURE(s): CXRP - CHEST PORTABLE REASON: PALPITATIONS ORDER NUMBER(s): [id number], ACCESSION NUMBER(s): [id number] CHEST RADIOGRAPH Indication: PALPITATIONS Technique: Single frontal view of the chest was obtained Comparison: XY CHEST XRAY 1 VIEW on DOS: 02/10/24, XY CHEST PORTABLE on DOS: 09/08/23, XY CHEST PORTABLE on DOS: 09/06/23 FINDINGS: Lines and Tubes: None Lungs: No focal consolidation. Pleura: No effusion. No pneumothorax. Cardiomediastinal contours: Unremarkable Bones: No acute osseous abnormality. IMPRESSION: 1. No acute cardiopulmonary disease. ATED BY: NAIN FRANCIS Jr., DO DICTATED DATE/TIME: 03/20/241848 SIGNED BY: NAIN FRANCIS Jr., SIGNED DATE/TIME: 03/20/241848 CC: Patient: ROBBIE GARCÍA Acct: [id number] : 2000 Loc: [facility] Age/Sex: 24/M [id number] Progress Note Date Seen: Mar 22, 2024 Medical Necessity Reason Pt with a Central, PICC or Fol: No Subjective Patient reports: Feels better Objective vital signs Vital Sign Date Time Temp Pulse Resp B/P (MAP) Pulse Ox O2 Delivery O2 Flow Rate FiO2 03/22/24 11:50 98.2 83 18 119/76 (90) 99 98.2 03/22/24 08:00 Room Air* 0 21 Total Intake and Output 03/21/24 03/21/24 03/22/24 15:00 23:00 07:00 Intake Total 150 ml 1100 ml Balance 150 ml 1100 ml medications Current Medications Medications Dose Ordered Sig/Jb Route Start Time Stop Time Status Last Admin Dose Admin Metoprolol Succinate 12.5 mg DAILY PO 03/21/24 10:00 03/22/24 09:41 12.5 MG Aspirin 81 mg DAILY PO 03/21/24 10:00 03/22/24 09:38 81 MG Ondansetron HCl 4 mg Q4HP PRN IV 03/20/24 21:45 Nitroglycerin 0.4 mg Q5MINP PRN SL 03/20/24 21:45 Morphine Sulfate 2 mg Q30M PRN IV 03/20/24 21:45 Paroxetine HCl 15 mg DAILY PO 03/21/24 10:00 03/22/24 09:37 15 MG Lorazepam 1 mg DAILY PRN PO 03/21/24 17:00 Lorazepam 0.75 mg DAILY PO 03/22/24 14:00 Mirtazapine 15 mg HS PO 03/22/24 21:00 Examination: GENERAL:Abnormal, HEENT:Abnormal, LUNGS:Abnormal, CVS:Abnormal, ABDOMEN:Abnormal laboratory and microbiology Laboratory Tests 03/22/24 06:31 Test 03/22/24 06:31 Range/Units Serum Glucose 88 74-106 mg/dL Problem List/Assessment/Plan Problem List/Assessment/Plan suspected POTS----pt has lot of sinus arrhythmia and sinus tach notes are not clear about this SVT hx from august 2023 , outpt event monitor would start pt on ivabradine 2.5 mg po bid dc BB dc home when medically stable pt agrees to plan he should get outpt eval at [facility] [place] in future Plan discussed with: Patient My Orders My Orders Orders - JAMAR ORTEGA MD Procedure Category Date Status Time Echo 2d Mode Cardiac US 03/21/24 Resulted DOP 13:21 Date of Service: Mar 22, 2024 Billing Provider: JAMAR ORTEGA MD Common Visit Codes: NOT BILLABLE JAMAR ORTEGA MD Mar 22, 2024 12:46 E/M VISIT PERFORMED BY: TRANSCRIBED BY:JAMAR ORTEGA MD TRANSCRIBED DATE/TIME:03/22/24 1246 ELECTRONICALLY SIGNED BY:JAMAR ORTEGA MD 03/22/24 1246 ELECTRONICALLY CO-SIGNED BY: Condition at Discharge: Stable Final Diagnosis/Problems List suspected POTS Acute on chronic Palpitation likely due to with sinus tachycardia Reflex Sinus tachycardia with change in position Hypertension History of SVT Hyperlipidemia History of panic attack Suspected subclinical hypothyroidism Depression Asthma Leukocytosis Discharge Disposition: Home Discharge Instruct/Medications Diet: Cardiac 2g Na,low cholest Activity: Light activity Follow Up/Referral: please follow up with PCP in one week outpt eval at [facility] [place] in future out patient event monitor Discontinued metoprolol Medications: ivabradine 2.5 mg po bid Discontinued metoprolol Resume other home medications Discharge Statement: "Patient was advised to return to the ER or call 911 if any headaches, dizziness, shortness of breath, chest pain, abdominal pain, bleeding, fevers, or worsening of medical condition. Patient was counseled about treatment plan, medications, possible side effects, patientverbalized understanding. All questions were answered to the best of my ability. This discharge took greater then 30 minutes in planning, reviewing documentation, counseling the patient, and discussing with other team members." ASSESSMENT ASSESSMENT Assessment suspected POTS Acute on chronic Palpitation likely due to with sinus tachycardia Reflex Sinus tachycardia with change in position Hypertension History of SVT Hyperlipidemia History of panic attack Suspected subclinical hypothyroidism Depression Asthma Leukocytosis Date of Service: Mar 22, 2024 Billing Provider: NEHEMIAH DE LA ROSA MD Common Visit Codes: 44015-RGN/OBS DISCH DAY >30min MAYANK LEON RESIDENT Mar 22, 2024 14:36 NEHEMIAH DE LA ROSA MD Mar 22, 2024 20:18
[2024-03-22 15:10] VITALS: BP 125/76; PULSE 96
[2024-03-22] MEDS ORDERED: MIRTAZAPINE 30 MG TAB PO SCH (21:00)
[2024-03-22] MEDS ORDERED: IVABRADINE 5 MG TAB PO SCH (22:00)
== END 2024-03-22 16:15 | disposition home or self-care (01) | DRG 48 ==
LOC: ER 18:24 → TELE 21:41 → TELE-WESTW 03-21 13:49
PROVIDERS: ADMIT Internal Medicine Geriatric Medicine; ATTEND Internal Medicine Geriatric Medicine
DX: G90.A Postural orthostatic tachycardia syndrome [POTS] (principal); D72.829 Elevated white blood cell count, unspecified; E78.5 Hyperlipidemia, unspecified; F41.9 Anxiety disorder, unspecified; I10 Essential (primary) hypertension; J45.909 Unspecified asthma, uncomplicated; E03.9 Hypothyroidism, unspecified; F32.A Depression, unspecified; Z83.3 Family history of diabetes mellitus; Z79.51 Long term (current) use of inhaled steroids; Z79.899 Other long term (current) drug therapy
CPT/HCPCS: 36415; 71045; 80048; 80053; 80307; 80320; 81001; 83735; 84439; 84443; 84481; 84484; 85025; 93005; 93306; 99291; G0378

== ENCOUNTER 2024-08-19 18:32 | Emergency (ER) | payer MEDICAID ==
[~2024-08-19] VITALS: Ht 182.9 cm; Wt 79.0 kg
[~2024-08-19 18:32] MED LIST changes: +IVAB5TAB2 PO; +LORA-655 PO; -METO-289 PO; +MIRT-93 PO
[2024-08-19 19:19] LABS: Urine Bacteria None Seen /hpf (None Seen)
[2024-08-19 19:25] LABS: Basophils # (auto) 0 10 ^3/uL (0-0.2); Basophils % (auto) 0.6 % (0.0-2.0); Eosinophils # (auto) 0.4 10 ^3/uL (0-0.8); Eosinophils % (auto) 4.7 % (0.0-7.0); Hematocrit 42.7 % (41.0-53.0); Hemoglobin 14.6 g/dL (13.5-17.5); Lymphocytes # (auto) 2.1 10 ^3/uL (0.4-5.4); Lymphocytes % (auto) 28.3 % (10.0-50.0); Mean Corpuscular Hemoglobin 29.3 pg (28.0-32.0); Mean Corpuscular Hgb Conc. 34.2 g/dL (32.0-36.0); Mean Corpuscular Volume 85.6 fL (80.0-100.0); Monocytes # (auto) 0.5 10 ^3/uL (0-1.3); Monocytes % (auto) 7.3 % (0.0-12.0); Neutrophils # (auto) 4.4 10 ^3/uL (1.6-8.6); Neutrophils % (auto) 59.1 % (37.0-80.0); Nucleated Red Blood Cells % 0.1 %; Platelet Count (auto) 199 10^3/uL (140-450); Red Blood Cells 4.99 10^6/uL (4.5-5.90); Red Cell Distribution Width 13.2 % (11.8-14.3); White Blood Cell 7.5 10^3/uL (4.4-10.8)
[2024-08-19 19:29] LABS: Urine Blood Negative /uL (Negative); Urine Clarity Clear (Clear); Urine Color Colorless (Yellow); Urine Protein, UAD Negative (Negative); Urine Specific Gravity 1.005 (1.001-1.035); Urine Squamous Epithelial Cell None Seen /hpf (<5); Urine Urobilinogen Normal (Negative); Urine pH 6.5 (5.0-9.0)
[2024-08-19 19:31] LABS: Urine WBC < 1 /HPF (0-3)
[2024-08-19 19:40] LABS: Alanine Aminotransferase 31 U/L (7-40); Albumin 4.8 g/dL (3.2-4.8); Alkaline Phosphatase 82 U/L (46-116); Anion Gap 8 (5-15); Aspartate Aminotransferase 19 U/L (13-40); Blood Urea Nitrogen 10 mg/dL (9-23); Carbon Dioxide 28 mmol/L (20-31); Glucose 91 mg/dL (74-106); Sodium 145 mmol/L (136-145); Total Protein 7.3 g/dL (5.7-8.2)
[2024-08-19 19:41] LABS: Bilirubin, Total 0.6 mg/dL (0.2-1.0)
[2024-08-19 19:43] LABS: Chloride 109 mmol/L (98-107)
[2024-08-19 20:58] VITALS: BP 138/78; PULSE 100; RESP 20; TEMP 97.9; O2SAT 100
--- NOTE | 2024-08-19 21:44 | ED.PDOC ---
HPI Comments PT PRESENTED TO THE ER WITH C/C OF LOW BLOOD PRESSURE. PER PT REPORT, HE HAS BEEN ASSESSING HIS B/P AT HOME AND HE NOTED IT TO BE "BELOW HIS NORMAL LEVEL". PT B/P NOTED TO BE WNL DURING TRIAGE ASSESSMENT PATIENT REPORTS HISTORY OF POTS. DENIES CHEST PAIN, SHORTNESS OF BREATH, DIFFICULTY BREATHING, FEVER, CHILLS, NAUSEA, VOMITING OR DIARRHEA PERSONAL RECENT TRAVEL OR KNOWN ILL CONTACTS.. Chief Complaint: Low Blood Pressure Time Seen by MD: 18:38 Primary Care Provider: tess Day Notes: Nurses Notes, Medications, Allergies Allergies: Coded Allergies: NO KNOWN ALLERGIES (Unverified , 02/22/18) Home Meds Active Scripts Ivabradine HCl (Ivabradine Hydrochloride) 5 Mg Tab, 2.5 MG PO BID for 30 Days, #30 TAB Prov:MAYANK LEON RESIDENT 03/22/24 Promethazine-Dm (Promethazine Dm 6.25-15 mg/5Ml) 1 Tatayna Tatyana, 5 ML PO TID, #150 ML Prov:CHIO HICKS 02/10/24 Ibuprofen (Ibuprofen) 600 Mg Tab, 1 TAB PO QID, #30 TAB Prov:CHIO HICKS 02/10/24 Azithromycin (ZITHROMAX TABLET) 250 Mg Tb, 250 MG PO DAILY, #6 TAB Prov:CHIO HICKS GA 02/10/24 Bupropion Hcl (Wellbutrin Sr) 150 Mg Tab, 1 TAB PO BID, #60 TAB 5 Refills Prov:BILL PHILLIPS ARTICULATION OFFICER 10/10/23 Dicyclomine Hcl (BENTYL CAPSULE) 10 Mg Cp, 1 CAP PO Q6HPRN, #20 CAP 0 Refills Prov:FAISAL NICOLE PAC 08/27/23 Reported Medications Mirtazapine (Remeron) 15 Mg Tab, 15 MG PO HS, TAB 03/21/24 Lorazepam (Ativan) 0.5 Mg Tab, 0.25 TAB PO DAILY, #30 TAB 03/21/24 Albuterol Sulfate (Albuterol Sulfate Hfa) 108 Mcg/Act Aer, 2 PUFF IN Q4H PRN for SHORTNESS OF BREATH, AER 09/08/23 Sertraline Hcl (Sertraline Hcl) 50 Mg Tab, 25 MG PO DAILY, MG 09/08/23 Famotidine (Famotidine) 40 Mg Tab, 40 MG PO HS, TAB 09/08/23 Quetiapine Fumerate (QUETIAPINE FUMARATE) 300 Mg Tab, 300 MG PO HS, MG 09/08/23 Lorazepam (ATIVAN TABLET) 0.5 Mg Tb, 2 TAB PO DAILY PRN for ANXIETY, #30 TAB 09/08/23 Fluticasone Propionate (Nasal) (Allergy Nasal [place] 24 Ho) 50 Mcg/Act Spr, 1 SPRAY NA DAILY, SPRAY 09/08/23 Information Source: Patient Mode of Arrival: Ambulatory Past Medical History PAST MEDICAL HISTORY: Anxiety, Asthma, Depression, High Lipids, HTN Surgical History: Hernia Repair Family History Family History: Family hx of DM, Family hx of heart sabina Social History Smoker: Non-Smoker, Other Alcohol: Denies ETOH Use Drugs: Denies Drug Use Lives In: Home Constitutional: denies: chills, diaphoresis, fatigue, fever, malaise, sweats, weakness, others EENTM: denies: blurred vision, double vision, ear bleeding, ear discharge, ear drainage, ear pain, ear ringing, eye pain, eye redness, hearing loss, mouth pain, mouth swelling, nasal discharge, nose bleeding, nose congestion, nose pain, photophobia, tearing, throat pain, throat swelling, voice changes, others Respiratory: denies: cough, hemoptysis, orthopnea, SOB at rest, shortness of breath, SOB with excertion, stridor, wheezing, others Cardiovascular: reports: dizzy spells; denies: chest pain, diaphoresis, Dyspnea on exertion, edema, irregular heart beat, left arm pain, lightheadedness, palpitations, PND, syncope, others Gastrointestinal: denies: abdomen distended, abdominal pain, blood streaked bowels, constipated, diarrhea, dysphagia, difficulty swallowing, hematemesis, melena, nausea, poor appetite, poor fluid intake, rectal bleeding, rectal pain, vomiting, others Genitourinary: denies: burning, dysuria, flank pain, frequency, hematuria, incontinence, penile discharge, penile sore, pain, testicle pain, testicle swelling, urgency, others Neurological: denies: dizziness, fainting, headache, left sided numbness, left sided weakness, numbness, paresthesia, pre-existing deficit, right sided nu mbness, right sided weakness, seizure, speech problems, tingling, tremors, weakness, others Musculoskeletal: denies: back pain, gout, joint pain, joint swelling, muscle pain, muscle stiffness, neck pain, others Integumetry: denies: bruises, change in color, change in hair/nails, dryness, laceration, lesions, lumps, rash, wounds, others Allergic/Immunocompromised: denies: Difficulty Healing, Frequent Infections, Hives, Itching, others Hematologic/Lymphatic: denies: anemia, blood clots, easy bleeding, easy bruising, swollen glands, others Endocrine: denies: excessive hunger, excessive sweating, excessive thirst, excessive urination, flushing, intolerance to cold, intolerance to heat, unexplained weight gain, unexplained weight loss, others Psychiatric: denies: anxiety, bipolar disorder, depression, hopeless, panic disorder, schizophrenia, sleepless, suicidal, others Physical Exam General Appearance: No Apparent Distress, Normal HEENT: Normal ENT Inspection, Pharynx Normal, TMs Normal Neck: Full Range of Motion, Non-Tender Respiratory: Chest Non-Tender, Lungs Clear, No Accessory Muscle Use, No Respiratory Distress, Normal Breath Sounds Cardiovascular: No Edema, No JVD, No Murmur, No Gallop, Normal Peripheral Pulses, Regular Rate/Rhythm Breast Exam: Deferred Gastrointestinal: No Organomegaly, Non Tender, No Pulsatile Mass, Normal Bowel Sounds, Soft Genitalia: Deferred Pelvic: Deferred Rectal: Deferred Extremities: Normal capillary refill, Normal inspection, Normal range of motion, Non-tender, No pedal edema Musculoskeletal : Apperance: Normal Neurologic: Alert, No Motor Deficits, Normal Affect, Normal Mood, No Sensory Deficits Cerebellar Function: Normal Reflexes: Normal Skin: Dry, Normal Color, Warm Lymphatic: No Adenopathy Was a procedure done? Was a procedure done?: No CP Differential Dx Differential Diagnosis: Anxiety / Panic Attack, Electrolyte Disorder X-Ray, Labs, Meds, VS Vital Signs Date Time Temp Pulse Resp B/P (MAP) Pulse Ox O2 Delivery O2 Flow Rate FiO2 08/19/24 20:58 97.9 100 20 138/78 (98) 100 97.9 08/19/24 18:43 98.4 101 18 127/87 (100) 97 98.4 Lab Test 08/19/24 19:08 08/19/24 19:00 Range/Units Urine Color Colorless Yellow Urine Clarity Clear Clear Urine pH 6.5 5.0-9.0 Urine Specific [place] 1.005 1.001-1.035 Urine Protein Negative Negative Urine Ketones Negative Negative Urine Blood Negative Negative /uL Urine Nitrite Negative Negative Urine Bilirubin Negative Negative Urine Urobilinogen Normal Negative mg/dL Urine Leukocyte Esterase Negative Negative /uL Urine RBC <1 0 - 3 /hpf Urine Microscopic WBC < 1 0-3 /HPF Urine Squamous Epithelial Cells None seen <5 /hpf Urine Bacteria None seen None Seen /hpf Urine Glucose Normal Normal mg/dL White Blood Count 7.5 4.4-10.8 10^3/uL Red Blood Count 4.99 4.5-5.90 10^6/uL Hemoglobin 14.6 13.5-17.5 g/dL Hematocrit 42.7 41.0-53.0 % Mean Corpuscular Volume 85.6 80.0-100.0 fL Mean Corpuscular Hemoglobin 29.3 28.0-32.0 pg Mean Corpuscular Hemoglobin Concent 34.2 32.0-36.0 g/dL Red Cell Distribution Width 13.2 11.8-14.3 % Platelet Count 199 140-450 10^3/uL Mean Platelet Volume 9.8 6.9-10.8 fL Neutrophils (%) (Auto) 59.1 37.0-80.0 % Lymphocytes (%) (Auto) 28.3 10.0-50.0 % Monocytes (%) (Auto) 7.3 0.0-12.0 % Eosinophils (%) (Auto) 4.7 0.0-7.0 % Basophils (%) (Auto) 0.6 0.0-2.0 % Neutrophils # (Auto) 4.4 1.6-8.6 10 ^3/uL Lymphocytes # (Auto) 2.1 0.4-5.4 10 ^3/uL Monocytes # (Auto) 0.5 0-1.3 10 ^3/uL Eosinophils # (Auto) 0.4 0-0.8 10 ^3/uL Basophils # (Auto) 0 0-0.2 10 ^3/uL Nucleated Red Blood Cells 0.1 % Sodium Level 145 136-145 mmol/L Potassium Level 4.0 3.5-5.1 mmol/L Chloride Level 109 H 98-107 mmol/L Carbon Dioxide Level 28 20-31 mmol/L Anion Gap 8 5-15 Blood Urea Nitrogen 10 9-23 mg/dL Creatinine 1.00 0.700-1.30 mg/dL Glomerular Filtration Rate Calc 107 >90 mL/min BUN/Creatinine Ratio 10.0 10.0-20.0 Serum Glucose 91 74-106 mg/dL Calcium Level 10.0 8.7-10.4 mg/dL Total Bilirubin 0.6 0.2-1.0 mg/dL Aspartate Amino Transferase (AST) 19 13-40 U/L Alanine Aminotransferase (ALT) 31 7-40 U/L Alkaline Phosphatase 82 46-116 U/L Total Protein 7.3 5.7-8.2 g/dL Albumin 4.8 3.2-4.8 g/dL X-Ray, Labs, Meds, VS Comment PATIENT REFUSED IV FLUIDS STATES HE IS FEELING BETTER. CBC CMP AND UA WITHIN NORMAL LIMITS. PATIENT NORMOTENSIVE THROUGHOUT STAY. ADVISED TO INCREASE HIS P.O. FLUIDS WITH ELECTROLYTES FOLLOW UP WITH HIS PCP IN 2 DAYS FOR RE-EVAL UATION. ER RETURN PRECAUTIONS GIVEN PATIENT INDICATES UNDERSTANDING AND AGREES WITH DISCHARGE PLAN OF CARE. Time of 1ST Reevaluation: 21:42 Reevaluation 1ST: Improved Patient Education/Counseling: Diagnosis, Treatment, Prognosis, Need For Follow Up Family Education/Counseling: Diagnosis, Treatment, Prognosis, Need For Follow Up Departure 1 Departure Time of Disposition: 21:43 Impression: Primary Impression: POTS (postural orthostatic tachycardia syndrome) Disposition: 01 HOME / SELF CARE / HOMELESS Condition: Stable Discharged With: Friend Critical Care Note Critical Care Time?: No Stability Stability form required: No Heart Score Heart Score: Heart Score Response (Comments) Value History N/A 0 EKG N/A 0 Age <45 0 Risk Factors N/A 0 Troponin N/A 0 Total 0 [facility] Aug 19, 2024 21:44
[2024-08-19] MEDS: SODIUM CHLORIDE 0.9% 1,000 ML IV ONE (22:37)
== END 2024-08-19 22:37 | disposition home or self-care (01) ==
LOC: ER 18:39
DX: G90.A Postural orthostatic tachycardia syndrome [POTS] (principal); I10 Essential (primary) hypertension; E78.5 Hyperlipidemia, unspecified; F41.9 Anxiety disorder, unspecified; F32.A Depression, unspecified; J45.909 Unspecified asthma, uncomplicated; Z79.899 Other long term (current) drug therapy; Z98.890 Other specified postprocedural states
CPT/HCPCS: 36415; 80053; 81001; 85025

== ENCOUNTER → 2024-11-18 | Emergency (ER) | payer MEDICAID ==
[~2024-11-18] VITALS: Ht 185.4 cm; Wt 69.0 kg
[2024-11-18 20:55] VITALS: BP 157/85; PULSE 74; RESP 16; TEMP 98.2; O2SAT 98
== END | disposition left against medical advice (07) ==
LOC: ER 20:53
DX: F41.9 Anxiety disorder, unspecified (principal); Z53.21 Procedure and treatment not carried out due to patient leaving prior to being seen by health care provider

== ENCOUNTER 2024-12-11 15:59 | Emergency (ER) | payer MEDICAID ==
[~2024-12-11] VITALS: Ht 182.9 cm; Wt 68.4 kg
--- NOTE | 2024-12-11 16:55 | ED.PDOC ---
History of Present Illness HPI Comments 24-year-old male came to the ER stating that he has been having increased heart rate anxious for the past few days. He has been tapering off on Ativan. History of Pott's disease. He is very anxious. Denies shortness a breath. Denies nausea vomiting. Denies any other symptoms. Chief Complaint: Anxiety Time Seen by MD: 16:15 Primary Care Provider: tess Day Notes: Nurses Notes, Medications, Allergies Allergies: Coded Allergies: NO KNOWN ALLERGIES (Unverified , 02/22/18) Home Meds Active Scripts Ivabradine HCl (Ivabradine Hydrochloride) 5 Mg Tab, 2.5 MG PO BID for 30 Days, #30 TAB Prov:MAYANK LEON RESIDENT 03/22/24 Promethazine-Dm (Promethazine Dm 6.25-15 mg/5Ml) 1 Tatyana Tatyana, 5 ML PO TID, #150 ML Prov:CHIO HICKS [place] 02/10/24 Ibuprofen (Ibuprofen) 600 Mg Tab, 1 TAB PO QID, #30 TAB Prov:CHIO HICKS [place] 02/10/24 Azithromycin (ZITHROMAX TABLET) 250 Mg Tb, 250 MG PO DAILY, #6 TAB Prov:CHIO HICKS [place] 02/10/24 Bupropion Hcl (Wellbutrin Sr) 150 Mg Tab, 1 TAB PO BID, #60 TAB 5 Refills Prov:BILL PHILLIPS [facility] 10/10/23 Dicyclomine Hcl (BENTYL CAPSULE) 10 Mg Cp, 1 CAP PO Q6HPRN, #20 CAP 0 Refills Prov:FAISAL NICOLE PAC 08/27/23 Reported Medications Mirtazapine (Remeron) 15 Mg Tab, 15 MG PO HS, TAB 03/21/24 Lorazepam (Ativan) 0.5 Mg Tab, 0.25 TAB PO DAILY, #30 TAB 03/21/24 Albuterol Sulfate (Albuterol Sulfate Hfa) 108 Mcg/Act Aer, 2 PUFF IN Q4H PRN for SHORTNESS OF BREATH, AER 09/08/23 Sertraline Hcl (Sertraline Hcl) 50 Mg Tab, 25 MG PO DAILY, MG 09/08/23 Famotidine (Famotidine) 40 Mg Tab, 40 MG PO HS, TAB 09/08/23 Quetiapine Fumerate (QUETIAPINE FUMARATE) 300 Mg Tab, 300 MG PO HS, MG 09/08/23 Lorazepam (ATIVAN TABLET) 0.5 Mg Tb, 2 TAB PO DAILY PRN for ANXIETY, #30 TAB 09/08/23 Fluticasone Propionate (Nasal) (Allergy Nasal [place] 24 Ho) 50 Mcg/Act Spr, 1 SPRAY NA DAILY, SPRAY 09/08/23 Information Source: Patient Mode of Arrival: Ambulatory Severity: Mild Timing: Days Duration: Since onset Past Medical History PAST MEDICAL HISTORY: Anxiety, Asthma, Depression, High Lipids, HTN Surgical History: Hernia Repair Family History Family History: Family hx of DM, Family hx of heart sabina Social History Smoker: Non-Smoker, Other Alcohol: Denies ETOH Use Drugs: Denies Drug Use Lives In: Home Constitutional: denies: chills, diaphoresis, fatigue, fever, malaise, sweats, weakness, others EENTM: denies: blurred vision, double vision, ear bleeding, ear discharge, ear drainage, ear pain, ear ringing, eye pain, eye redness, hearing loss, mouth pain, mouth swelling, nasal discharge, nose bleeding, nose congestion, nose pain, photophobia, tearing, throat pain, throat swelling, voice changes, others Respiratory: denies: cough, hemoptysis, orthopnea, SOB at rest, shortness of breath, SOB with excertion, stridor, wheezing, others Cardiovascular: denies: chest pain, dizzy spells, diaphoresis, Dyspnea on exertion, edema, irregular heart beat, left arm pain, lightheadedness, palpitations, PND, syncope, others Gastrointestinal: denies: abdomen distended, abdominal pain, blood streaked bowels, constipated, diarrhea, dysphagia, difficulty swallowing, hematemesis, melena, nausea, poor appetite, poor fluid intake, rectal bleeding, rectal pain, vomiting, others Genitourinary: denies: burning, dysuria, flank pain, frequency, hematuria, incontinence, penile discharge, penile sore, pain, testicle pain, testicle swelling, urgency, others Neurological: denies: dizziness, fainting, headache, left sided numbness, left sided weakness, numbness, paresthesia, pre-existing deficit, right sided numbness, right sided weakness, seizure, speech problems, tingling, tremors, weakness, others Musculoskeletal: denies: back pain, gout, joint pain, joint swelling, muscle pain, muscle stiffness, neck pain, others Integumetry: denies: bruises, change in color, change in hair/nails, dryness, laceration, lesions, lumps, rash, wounds, others Allergic/Immunocompromised: denies: Difficulty Healing, Frequent Infections, Hives, Itching, others Hematologic/Lymphatic: denies: anemia, blood clots, easy bleeding, easy bruising, swollen glands, others Endocrine: denies: excessive hunger, excessive sweating, excessive thirst, excessive urination, flushing, intolerance to cold, intolerance to heat, unexplained weight gain, unexplained weight loss, others Psychiatric: reports: anxiety; denies: bipolar disorder, depression, hopeless, panic disorder, schizophrenia, sleepless, suicidal, others Physical Exam General Appearance: Moderate Distress HEENT: Normal ENT Inspection, Pharynx Normal, TMs Normal Neck: Full Range of Motion, Non-Tender, Normal, Normal Inspection Respiratory: Chest Non-Tender, Lungs Clear, No Accessory Muscle Use, No Respiratory Distress, Normal Breath Sounds Cardiovascular: No Edema, No JVD, No Murmur, No Gallop, Normal Peripheral Pulses, Regular Rate/Rhythm Breast Exam: Deferred Gastrointestinal: No Organomegaly, Non Tender, No Pulsatile Mass, Normal Bowel Sounds, Soft Genitalia: Deferred Pelvic: Deferred Rectal: Deferred Extremities: No calf tenderness, Normal capillary refill, Normal inspection, Normal range of motion, Non-tender, No pedal edema Musculoskeletal : Apperance: Normal 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 Was a procedure done?: No Differential Dx Considerations may include: Anxiety X-Ray, Labs, Meds, VS Vital Signs Date Time Temp Pulse Resp B/P (MAP) Pulse Ox O2 Delivery O2 Flow Rate FiO2 12/11/24 16:03 98.4 15 20 139/95 98 98.4 Patient alert. He is anxious. Vitals stable. Answering all questions. No sign of distress. Good pulse. Saturation pristine on room air. Abdomen is soft nontender. He does have good knowledge about his condition. Explained to the patient. Continue monitoring. Time of 1ST Reevaluation: 16:51 Reevaluation 1ST: Improved Patient Education/Counseling: Diagnosis, Treatment, Prognosis, Need For Follow Up Family Education/Counseling: No Family Present SEPSIS Sepsis Screen Date sepsis recognized/suspect: Dec 11, 2024 Time Sepsis recognized/suspect: 1603 Recent Procedure: No On Antibiotic Therapy: No Respiratory Rate >20: No Heart Rate >90: Yes Temp<36 C (96.8 F) or >38.3 C: No SBP <90 or MAP <65 mmHG: No New Acute Mental Status Change: No Is the patient on CPAP, BIPAP,: No Vital Signs Date Time Temp Pulse Resp B/P (MAP) Pulse Ox O2 Delivery O2 Flow Rate FiO2 12/11/24 16:03 98.4 15 20 139/95 98 98.4 Departure 1 Departure Time of Disposition: 16:54 Impression: Primary Impression: Anxiety Disposition: 30 STILL A PATIENT Condition: Good Discharged With: Self Critical Care Note Critical Care Time?: No Stability Stability form required: No Heart Score Heart Score: Heart Score Response (Comments) Value History N/A 0 EKG N/A 0 Age N/A 0 Risk Factors N/A 0 Troponin N/A 0 Total 0 NONA FLORES MD Dec 11, 2024 16:55
--- NOTE | 2024-12-11 19:26 | DVH ---
CHEST RADIOGRAPH Indication: SOB Technique: Single frontal view of the chest was obtained Comparison: XY CHEST PORTABLE on DOS: 03/20/24, XY CHEST XRAY 1 VIEW on DOS: 02/10/24, XY CHEST PORTABL E on DOS: 09/08/23 FINDINGS: Lines and Tubes: None Lungs: No focal consolidation. Pleura: No effusion. No pneumothorax. Cardiomediastinal contours: Unremarkable Bones: No acute osseous abnormality. IMPRESSION: 1. No acute cardiopulmonary disease. 2. No significant change from 03/20/2024.
[2024-12-11 19:45] LABS: Hematocrit 48.0 % (41.0-53.0); Hemoglobin 16.7 g/dL (13.5-17.5); Mean Corpuscular Hemoglobin 29.7 pg (28.0-32.0); Mean Corpuscular Volume 85.7 fL (80.0-100.0); Nucleated Red Blood Cells % 0.3 %
[2024-12-11 19:56] LABS: INR 1.08 (0.9-1.15); Partial Thromboplastin Time 28.8 SEC (24.5-34.5); Prothrombin Time 11.4 sec (9.3-11.8)
[2024-12-11 19:58] LABS: Alanine Aminotransferase 37 U/L (7-40); Albumin 5.2 g/dL (3.2-4.8); Alkaline Phosphatase 90 U/L (46-116); Anion Gap 13 (5-15); BUN/Creatinine Ratio 12.4 (10.0-20.0); Bilirubin, Total 1.2 mg/dL (0.2-1.0); Blood Urea Nitrogen 13 mg/dL (9-23); Calcium 10.2 mg/dL (8.7-10.4); Carbon Dioxide 25 mmol/L (20-31); Chloride 102 mmol/L (98-107); Glucose 87 mg/dL (74-106); Magnesium 1.9 mg/dL (1.6-2.6); Potassium 4.0 mmol/L (3.5-5.1); Sodium 140 mmol/L (136-145); Total Protein 8.2 g/dL (5.7-8.2)
[2024-12-11 22:00] VITALS: BP 125/84; PULSE 113; RESP 18; TEMP 97.9; O2SAT 99
--- NOTE | 2024-12-13 00:20 | ECG ---
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
== END 2024-12-11 22:09 | disposition home or self-care (01) ==
LOC: ER 15:59
DX: F41.9 Anxiety disorder, unspecified (principal); I10 Essential (primary) hypertension; F32.A Depression, unspecified; I48.92 Unspecified atrial flutter; J45.909 Unspecified asthma, uncomplicated; E78.5 Hyperlipidemia, unspecified; Z79.899 Other long term (current) drug therapy; Z86.11 Personal history of tuberculosis; Z98.890 Other specified postprocedural states
CPT/HCPCS: 36415; 71045; 80053; 83735; 83880; 84439; 84443; 84484; 85025; 85379; 85610; 85730; 93005

== ENCOUNTER 2024-12-20 02:32 | Emergency (ER) | payer MEDICAID ==
[~2024-12-20] VITALS: Ht 360.9 cm; Wt 70.1 kg
--- NOTE | 2024-12-20 02:53 | ED.PDOC ---
HPI Comments HPI: Poor Historian. 24-year-old male presents to emergency department for evaluation of palpitations that started in the last hour. Patient has history of POTS. He says his resting heart rate is usually when he lays down is in the 60s and when he stands up in the 110s. However he noticed that his heart rate is in the 180s and he felt chest palpitations without any other associated symptoms. Patient denies any use of drugs or alcohol. Patient is supposed to be on metoprolol but he was advised to stopped six months ago and he has been doing fine since then until this event. Patient denies any history of HIV however he said he got tested for HIV two days ago and still does not know the results. Patient says he developed some slight fever today but did not take any medications for it. Past Medical History: POTS, anxiety, Past Surgical History: Spinal tumor resection REVIEW OF SYSTEMS: CONSTITUTIONAL: Denies acute: fever, diaphoresis, chills, generalized weakness. HEAD: Denies acute: headache, photophobia Eyes: Denies acute: Double vision, vision loss, eye pain, eye discharge. EARS: Denies acute: tinnitus, hearing loss, ear discharge, ear pain, THROAT: Denies acute: sore throat, swelling, difficulty swallowing , pain with swallowing, change in voice. NECK: Denies acute: neck pain, neck swelling, stiff neck. HEART: Denies acute : chest pain, LUNGS: Denies acute: SOB, wheezing, cough, hemoptysis ABDOMEN: Denies acute: abdominal pain, Nausea, Vomiting, diarrhea, melena , hematemesis, hematochezia SKIN: Denies acute: rash, redness, lesions, itchiness. EXTREMITIES: Denies acute: calf pain, numbness, tingling, weakness, denies pain in extremity. Denies acute: Low back pain. Neuro: Denies acute: focal neurological deficit, motor or sensory focal neurological deficit, tremors, seizure like activity, confusion, dizziness, change in mental status, loss of bowel or bladder function, cauda equina like symptoms. : Denies acute: dysuria, hematuria, flank pain, increase in urinary frequency. PSYCH: Denies acute: hallucination, suicidal ideation, homicidal ideation. PHYSICAL EXAM: General: -----mild---acute distress, awake and alert. Head: normocephalic, atraumatic. Neck: supple, trachea is midline, no swelling. Throat: Normal phonation. Eyes:, no erythema, no purulent discharge, no proptosis, no icterus. Heart: regular tachycardic, no significant murmur appreciated. Lungs: no apparent respiratory distress, Able to speak in full sentences. No wheezing, no rhonchi, no crackles. No stridors Clear to auscultation bilaterally. Abdomen: non tender to palpation, non distended, soft, no guarding, no rebound, + bowel sounds. Neuro: Awake, Alert, oriented to name, self, situation, follows commands GCS=15. Speech is normal. Skin: no petechia, no purpura, no cyanosis, noted-pale, not jaundice. Lower extremities: --no - Pitting edema no deformity, no focal swelling, no calf TTP. Makes eye contact. moves all four extremities. Face: no apparent facial droop. Ambulating in the ED independently. ED COURSE: DISCLAIMER: This medical document was created using an electronic medical record system with voice recognition software and computerized dictation system. Although this document has been carefully reviewed, there might still be some phonetic and typographical errors. Occasional wrong-word or "sound-alike" substitutions may have occurred due to the inherent limitations of voice recognition software. These areas are purely typographical due to imperfections of the software programs and do not reflect any compromise in the patient's medical care. Please read the chart carefully and recognize, using context, where these substitutions have occurred. Chief Complaint: Palpitations Time Seen by MD: 02:35 Primary Care Provider: tess Day Notes: Allergies Allergies: Coded Allergies: NO KNOWN ALLERGIES (Unverified , 02/22/18) Home Meds Active Scripts Ivabradine HCl (Ivabradine Hydrochloride) 5 Mg Tab, 2.5 MG PO BID for 30 Days, #30 TAB Prov:MAYANK LEON RESIDENT 03/22/24 Promethazine-Dm (Promethazine Dm 6.25-15 mg/5Ml) 1 Tatyana Tatyana, 5 ML PO TID, #150 ML Prov:CHIO HICKS 02/10/24 Ibuprofen (Ibuprofen) 600 Mg Tab, 1 TAB PO QID, #30 TAB Prov:CHIO HICKS PA 02/10/24 Azithromycin (ZITHROMAX TABLET) 250 Mg Tb, 250 MG PO DAILY, #6 TAB Prov:CHIO HICKS PA 02/10/24 Bupropion Hcl (Wellbutrin Sr) 150 Mg Tab, 1 TAB PO BID, #60 TAB 5 Refills Prov:BILL PHILLIPS VARNISH FINISHER 10/10/23 Dicyclomine Hcl (BENTYL CAPSULE) 10 Mg Cp, 1 CAP PO Q6HPRN, #20 CAP 0 Refills Prov:COREYFAISAL PAC 08/27/23 Reported Medications Mirtazapine (Remeron) 15 Mg Tab, 15 MG PO HS, TAB 03/21/24 Lorazepam (Ativan) 0.5 Mg Tab, 0.25 TAB PO DAILY, #30 TAB 03/21/24 Albuterol Sulfate (Albuterol Sulfate Hfa) 108 Mcg/Act Aer, 2 PUFF IN Q4H PRN for SHORTNESS OF BREATH, AER 09/08/23 Sertraline Hcl (Sertraline Hcl) 50 Mg Tab, 25 MG PO DAILY, MG 09/08/23 Famotidine (Famotidine) 40 Mg Tab, 40 MG PO HS, TAB 09/08/23 Quetiapine Fumerate (QUETIAPINE FUMARATE) 300 Mg Tab, 300 MG PO HS, MG 09/08/23 Lorazepam (ATIVAN TABLET) 0.5 Mg Tb, 2 TAB PO DAILY PRN for ANXIETY, #30 TAB 09/08/23 Fluticasone Propionate (Nasal) (Allergy Nasal [place] 24 Ho) 50 Mcg/Act Spr, 1 SP RAY NA DAILY, SPRAY 09/08/23 Information Source: Patient Mode of Arrival: Ambulatory Past Medical History PAST MEDICAL HISTORY: Anxiety, Asthma, Depression, High Lipids, HTN Surgical History: Hernia Repair Family History Family History: Family hx of DM, Family hx of heart sabina Social History Smoker: Non-Smoker, Other Alcohol: Denies ETOH Use Drugs: Denies Drug Use Lives In: Home Was a procedure done? Was a procedure done?: No CP Differential Dx Differential Diagnosis: A-fib, A-Flutter, Angina, Anxiety / Panic Attack, Atrial Dysrhythmia, Digoxin Toxicity, Electrolyte Disorder, Heart Failure, Hyperthyroidism, Hyperventilation, Hypoxia, MAT, [place], PAC's, Pacemaker Malfunction, PSVT, Pulmonary Embolus, PVC's, Renal Failure, Sinus Tachycardia, Torsades De Pointes, Ventricular Dysrhythmia, V-Fib, V-Tach, WPW X-Ray, Labs, Meds, VS Vital Signs Date Time Temp Pulse Resp B/P (MAP) Pulse Ox O2 Delivery O2 Flow Rate FiO2 12/20/24 06:14 88 123/82 12/20/24 06:00 98.0 97 16 123/79 (94) 98 98.0 12/20/24 05:14 97 123/79 12/20/24 05:00 Room Air* 0 21 12/20/24 04:33 98.1 113 18 123/92 (102) 99 98.1 12/20/24 03:38 103 12/20/24 02:41 121 12/20/24 02:33 98.0 127 18 162/102 100 98.0 Lab Test 12/20/24 06:08 12/20/24 04:00 12/20/24 03:50 12/20/24 02:53 Range/Units Troponin I High Sensitivity < 3 L < 3 L < 3 L </=54 ng/L Urine Opiates Screen Neg NEGATIVE Urine Fentanyl Screen Neg NEGATIVE Urine Barbiturates Screen Neg NEGATIVE Urine Phencyclidine Screen Neg NEGATIVE Urine Amphetamines Screen Neg NEGATIVE Urine Benzodiazepines Screen Neg NEGATIVE Urine Cocaine Screen Neg NEGATIVE Urine Cannabinoids Screen Neg NEGATIVE White Blood Count 5.9 4.4-10.8 10^3/uL Red Blood Count 5.38 4.5-5.90 10^6/uL Hemoglobin 16.2 13.5-17.5 g/dL Hematocrit 46.4 41.0-53.0 % Mean Corpuscular Volume 86.2 80.0-100.0 fL Mean Corpuscular Hemoglobin 30.1 28.0-32.0 pg Mean Corpuscular Hemoglobin Concent 34.9 32.0-36.0 g/dL Red Cell Distribution Width 12.8 11.8-14.3 % Platelet Count 210 140-450 10^3/uL Mean Platelet Volume 9.7 6.9-10.8 fL Neutrophils (%) (Auto) 57.7 37.0-80.0 % Lymphocytes (%) (Auto) 25.8 10.0-50.0 % Monocytes (%) (Auto) 12.7 H 0.0-12.0 % Eosinophils (%) (Auto) 2.8 0.0-7.0 % Basophils (%) (Auto) 1.0 0.0-2.0 % Neutrophils # (Auto) 3.4 1.6-8.6 10 ^3/uL Lymphocytes # (Auto) 1.5 0.4-5.4 10 ^3/uL Monocytes # (Auto) 0.7 0-1.3 10 ^3/uL Eosinophils # (Auto) 0.2 0-0.8 10 ^3/uL Basophils # (Auto) 0.1 0-0.2 10 ^3/uL Nucleated Red Blood Cells 0.6 % Sodium Level 142 136-145 mmol/L Potassium Level 4.1 3.5-5.1 mmol/L Chloride Level 105 98-107 mmol/L Carbon Dioxide Level 28 20-31 mmol/L Anion Gap 9 5-15 Blood Urea Nitrogen 8 L 9-23 mg/dL Creatinine 1.13 0.700-1.30 mg/dL Glomerular Filtration Rate Calc 93 >90 mL/min BUN/Creatinine Ratio 7.1 L 10.0-20.0 Serum Glucose 102 74-106 mg/dL Calcium Level 9.8 8.7-10.4 mg/dL Magnesium Level 2.1 1.6-2.6 mg/dL Total Bilirubin 1.1 H 0.2-1.0 mg/dL Aspartate Amino Transferase (AST) 30 13-40 U/L Alanine Aminotransferase (ALT) 38 7-40 U/L Alkaline Phosphatase 90 46-116 U/L Total Protein 8.2 5.7-8.2 g/dL Albumin 5.1 H 3.2-4.8 g/dL [place] [address] Ph: [phone] DIAGNOSTIC IMAGING Diagnostic Imaging Report : [id number] Signed PATIENT: ROBBIE GARCÍA ACCT: [id number] UNIT: [id number] : 2000 LOC: ER ROOM / BED: / AGE / SEX: 24 / M ADM STATUS: REG ER SERVICE [id number] ORDERING PHYSICIAN: EDILSON CHATTERJEE DO PROCEDURE(s): CXRP - CHEST PORTABLE REASON: Palpitations ORDER NUMBER(s): [id number], ACCESSION NUMBER(s): [id number] CHEST RADIOGRAPH Indication: Palpitations Technique: 1 view Comparison: XY CHEST PORTABLE on DOS: 12/11/24, XY CHEST PORTABLE on DOS: 03/20/24, XY CHEST XRAY 1 VIEW on DOS: 02/10/24, XY CHEST PORTABLE on DOS: 09/08/23, XY CHEST PORTABLE on DOS: 09/06/23 FINDINGS: Lines and Tubes: None. Lungs/Pleura: No focal consolidation, pleural effusion or pneumothorax. Cardiomediastinum: Unremarkable. Other: No acute osseous abnormality. Redemonstrated left posterior 8th rib deformity. IMPRESSION: 1. No acute cardiopulmonary abnormality. ATED BY: PRAKASH VILLALTA MD DICTATED DATE/TIME: 12/20/24310 SIGNED BY: PRAKASH VILLALTA MD SIGNED DATE/TIME: 12/20/24310 CC: Time of 1ST Reevaluation: 05:58 Reevaluation 1ST: Resolved Patient Education/Counseling: Diagnosis, Treatment Family Education/Counseling: Other Comments MDM: patient presented with the above HPI.---palpitations inpatient with a history of POTS---workup was initiated. patient was found with the above mentioned diagnosis. the following medications were ordered: please refer to order lists of meds and tests obtained by myself Dr. Chatterjee. Patient ED course and VS have been stabilized. Patient has been reassessed in the ED and remained in a stable condition. Pertinent incidental findings were discussed with the patient and/or family. Patient/family voices understanding and is agreeable with plan. Patient has been observed in the ED adequate length of time to insure improvement/stability. Escalation of care considered: Consideration of escalation to observation or admission Patient was DISCHARGED home in a stable condition. All the reports of any imaging studies that were ordered by myself were reviewed by myself. SEPSIS Sepsis Screen Date sepsis recognized/suspect: Dec 20, 2024 Time Sepsis recognized/suspect: 024 Recent Procedure: No On Antibiotic Therapy: No Respiratory Rate >20: No Heart Rate >90: Yes Temp<36 C (96.8 F) or >38.3 C: No SBP <90 or MAP <65 mmHG: No New Acute Mental Status Change: No Is the patient on CPAP, BIPAP,: No Physician Orders Rotor Plate Washer (12/20/24 ) Chest Portable (12/20/24 02:43) Electrocardigram (12/20/24 02:43) Electrocardigram (12/20/24 03:43) Electrocardigram (12/20/24 05:43) Vital Signs Date Time Temp Pulse Resp B/P (MAP) Pulse Ox O2 Delivery O2 Flow Rate FiO2 12/20/24 06:14 88 123/82 12/20/24 06:00 98.0 97 16 123/79 (94) 98 98.0 12/20/24 05:14 97 123/79 12/20/24 05:00 Room Air* 0 21 12/20/24 04:33 98.1 113 18 123/92 (102) 99 98.1 12/20/24 03:38 103 12/20/24 02:41 121 12/20/24 02:33 98.0 127 18 162/102 100 98.0 Laboratory Tests Test 12/20/24 02:53 White Blood Count 5.9 10^3/uL (4.4-10.8) Departure 1 Departure Time of Disposition: 05:57 Impression: Primary Impression: Heart palpitations Additional Impression: POTS (postural orthostatic tachycardia syndrome) Disposition: 01 HOME / SELF CARE / HOMELESS Condition: Stable Additional Instructions: ADDITIONAL INSTRUCTIONS: PLEASE READ ALL INSTRUCTIONS PROVIDED IN THIS PACKET CAREFULLY. YOU MUST FOLLOW-UP WITH YOUR PRIMARY CARE/FAMILY DOCTOR IN 1 TO 2 DAYS. IF YOU ARE UNABLE TO SEE YOUR PRIMARY CARE/FAMILY DOCTOR, PLEASE RETURN TO OUR EMERGENCY ROOM FOR RE-ASSESSMENT AND RE-EVALUATION IN 1 TO 2 DAYS. RETURN TO THE EMERGENCY ROOM HERE IN OUR FACILITY OR TO THE NEAREST ER [facility] IF YOUR SYMPTOMS CHANGE OR WORSEN. CONSULTATIONS: YOU MUST FOLLOW-UP FOR CONSULTATION SOON POSSIBLE WITH: -CARDIOLOGY IN 1-2 DAYS. PLEASE CALL FOR APPOINTMENT. YOU MUST CALL THE CONSULTANTS OFFICE YOURSELF TO MAKE AN APPOINTMENT. YOU MAY NEED TO ARRANGE THAT THROUGH YOUR INSURANCE AND/OR YOUR PRIMARY/FAMILY DOCTOR. IF YOU ARE UNABLE TO SEE THE FUR JOINER IN 1 TO 2 DAYS, YOU MUST RETURN TO OUR EMERGENCY ROOM (OR ANY OTHER ER OF YOUR CHOICE) FOR RE-ASSESSMENT AND RE- EVALUATION. ADEQUATE FLUID HYDRATION. ALTHOUGH YOU HAVE BEEN DISCHARGED FROM THE EMERGENCY DEPARTMENT, THIS DOES NOT MEAN THAT YOU HAVE A "CLEAN BILL OF HEALTH". NO DEFINITIVE DIAGNOSIS FOR YOUR SYMPTOMS HAS BEEN MADE TODAY. IT IS POSSIBLE THAT YOU ARE IN THE PROCESS OF DEVELOPING A SERIOUS ILLNESS. THIS IS WHY YOU MUST RETURN TO THE ED WITHOUT FAIL IF ANY NEW OR WORSENING SYMPTOMS DEVELOP. AVOID ALL CAFFEINATED PRODUCTS. AVOID ALL ENERGY DRINKS. Discharged With: Self Critical Care Note Critical Care Time?: No Heart Score Heart Score: Heart Score Response (Comments) Value History N/A 0 EKG N/A 0 Age N/A 0 Risk Factors N/A 0 Troponin N/A 0 Total 0 EDILSON CHATTERJEE DO Dec 20, 2024 02:53
--- NOTE | 2024-12-20 03:14 | DVH ---
CHEST RADIOGRAPH Indication: Palpitations Technique: 1 view Comparison: XY CHEST PORTABLE on DOS: 12/11/24, XY CHEST PORTABLE on DOS: 03/20/24, XY CHEST XRAY 1 VIEW on DOS: 02/10/24, XY CHEST PORTABLE on DOS: 09/08/23, XY CHEST PORTABLE on DOS: 09/06/23 FINDINGS: Lines and Tubes: None. Lungs/Pleura: No focal consolidation, pleural effusion or pneumothorax. Cardiomediastinum: Unremarkable. Other: No acute osseous abnormality. Redemonstrated left posterior 8th rib deformity. IMPRESSION: 1. No acute cardiopulmonary abnormality.
[2024-12-20 03:45] LABS: Hematocrit 46.4 % (41.0-53.0); Hemoglobin 16.2 g/dL (13.5-17.5); Mean Corpuscular Hemoglobin 30.1 pg (28.0-32.0); Mean Corpuscular Volume 86.2 fL (80.0-100.0); Nucleated Red Blood Cells % 0.6 %
[2024-12-20 03:48] LABS: Alanine Aminotransferase 38 U/L (7-40); Albumin 5.1 g/dL (3.2-4.8); Alkaline Phosphatase 90 U/L (46-116); Anion Gap 9 (5-15); BUN/Creatinine Ratio 7.1 (10.0-20.0); Bilirubin, Total 1.1 mg/dL (0.2-1.0); Blood Urea Nitrogen 8 mg/dL (9-23); Calcium 9.8 mg/dL (8.7-10.4); Carbon Dioxide 28 mmol/L (20-31); Chloride 105 mmol/L (98-107); Glucose 102 mg/dL (74-106); Magnesium 2.1 mg/dL (1.6-2.6); Potassium 4.1 mmol/L (3.5-5.1); Sodium 142 mmol/L (136-145); Total Protein 8.2 g/dL (5.7-8.2)
[2024-12-20] MEDS: SODIUM CHLORIDE 0.9% 1,000 ML IV ONE (04:08)
[2024-12-20] MEDS: METOPROLOL TARTRATE 1MG/1ML-5ML VIAL IV STA (05:14)
[2024-12-20 05:36] LABS: Amphetamine Screen, Urine Neg (NEGATIVE); Barbiturate Scree,Urine Neg (NEGATIVE); Benzodiazephine Screen, Urine Neg (NEGATIVE); Cannabinoid Screen, Urine Neg (NEGATIVE); Cocaine Screen, Urine Neg (NEGATIVE); Opiate Scree,Urine Neg (NEGATIVE); Phencyclidine Screen, Urine Neg (NEGATIVE)
[2024-12-20 06:00] VITALS: BP 123/79; PULSE 97; RESP 16; TEMP 98; O2SAT 98
--- NOTE | 2024-12-25 09:12 | ECG ---
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
--- NOTE | 2024-12-25 09:13 | ECG ---
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
== END 2024-12-20 06:23 | disposition home or self-care (01) ==
LOC: ER 02:32
DX: R00.2 Palpitations (principal); G90.A Postural orthostatic tachycardia syndrome [POTS]; I10 Essential (primary) hypertension; F32.A Depression, unspecified; F41.9 Anxiety disorder, unspecified; E78.5 Hyperlipidemia, unspecified; I49.3 Ventricular premature depolarization; J45.909 Unspecified asthma, uncomplicated; Z79.899 Other long term (current) drug therapy; Z98.890 Other specified postprocedural states
CPT/HCPCS: 36415; 71045; 80053; 80307; 83735; 84484; 85025; 86850; 86900; 86901; 93005; 96361; 96374; 99285; J7030

== ENCOUNTER 2025-01-05 01:20 | Inpatient (IN) | payer MEDICAID ==
[2025-01-05] VITALS (9 sets, daily range): BP systolic 117–131; BP diastolic 65–78; PULSE 78–111; RESP 17–18; TEMP 97.7–99.1; O2SAT 98–100
[~2025-01-05] VITALS: Ht 182.9 cm; Wt 69.0 kg
[2025-01-05] MEDS: SODIUM CHLORIDE 0.9% 1,000 ML IV ONE ×4 (01:45→20:02)
--- NOTE | 2025-01-05 01:47 | ED.PDOC ---
HPI Comments 25 year old male came to Er due to palpitations. Patient has history of SVT, POTS, anxiety. For the past 3 days, he has been having palpitations, worse when standing up >160 bpm, than laying down >105 bpm. Has been feeling chest tigntness and very anxious recently. Denies any recent illness. REVIEW OF SYSTEMS: General: No fever, no chills, or fatigue HEENT: No sore throat, no earache, no congestion, no neck pain. Cardiac: (+) chest pain. (+) palpitations. Lungs: No shortness of breath, no cough. GI: No nausea, no vomiting, no diarrhea, no constipation, no abdominal pain : No dysuria, frequency, or urgency. No hematuria. Musculoskeletal: No joint pain , no joint swelling, no extremity edema. Skin: No rash, no itching. Neuro: No headache, no dizziness, no weakness EXAM: General: Awake, alert and oriented. No acute distress. Skin: Skin in warm, dry and intact. Appropriate color for ethnicity. HEENT: The head is normocephalic and atraumatic. Conjunctivae are clear without exudates or hemorrhage. Sclera is non-icteric. EOM are intact. No signs of nystagmus. Eyelids are normal in appearance without swelling or lesions. Oral mucosa is pink and moist Neck: The neck is supple with normal range of motion. No JVD. Cardiac: Heart rate and rhythm are normal. No murmurs, gallops, or rubs are auscultated. Respiratory: No signs of respiratory distress. Lung sounds are clear in all lobes bilaterally without rales, rhonchi, or wheezes. Abdominal: Abdomen is soft, non-tender without distention. Bowel sounds are present and normoactive in all four quadrants. Extremities: Upper and lower extremities are atraumatic in appearance without deformity or edema. Neurological: The patient is awake, alert and oriented to person, place, and time with normal speech. Speech is clear. There is no facial asymmetry. Psychiatric: Appropriate mood and affect. Good judgement and insight Chief Complaint: Palpitations Time Seen by MD: 01:46 Primary Care Provider: tess Reviewed Notes: Nurses Notes Allergies: Coded Allergies: NO KNOWN ALLERGIES (Unverified , 02/22/18) Home Meds Active Scripts Ivabradine HCl (Ivabradine Hydrochloride) 5 Mg Tab, 2.5 MG PO BID for 30 Days, #30 TAB Prov:MAYANK LEON RESIDENT 03/22/24 Promethazine-Dm (Promethazine Dm 6.25-15 mg/5Ml) 1 Tatyana Tatyana, 5 ML PO TID, #150 ML Prov:KURTKELSEYJESUS VT 02/10/24 Ibuprofen (Ibuprofen) 600 Mg Tab, 1 TAB PO QID, #30 TAB Prov:CHIO HICKS VT 02/10/24 Azithromycin (ZITHROMAX TABLET) 250 Mg Tb, 250 MG PO DAILY, #6 TAB Prov:CHIO HICKS VT 02/10/24 Bupropion Hcl (Wellbutrin Sr) 150 Mg Tab, 1 TAB PO BID, #60 TAB 5 Refills Prov:BILL PHILLIPS [facility] 10/10/23 Dicyclomine Hcl (BENTYL CAPSULE) 10 Mg Cp, 1 CAP PO Q6HPRN, #20 CAP 0 Refills Prov:FAISAL NICOLE PAC 08/27/23 Reported Medications Mirtazapine (Remeron) 15 Mg Tab, 15 MG PO HS, TAB 03/21/24 Lorazepam (Ativan) 0.5 Mg Tab, 0.25 TAB PO DAILY, #30 TAB 03/21/24 Albuterol Sulfate (Albuterol Sulfate Hfa) 108 Mcg/Act Aer, 2 PUFF IN Q4H PRN for SHORTNESS OF BREATH, AER 09/08/23 Sertraline Hcl (Sertraline Hcl) 50 Mg Tab, 25 MG PO DAILY, MG 09/08/23 Famotidine (Famotidine) 40 Mg Tab, 40 MG PO HS, TAB 09/08/23 Quetiapine Fumerate (QUETIAPINE FUMARATE) 300 Mg Tab, 300 MG PO HS, MG 09/08/23 Lorazepam (ATIVAN TABLET) 0.5 Mg Tb, 2 TAB PO DAILY PRN for ANXIETY, #30 TAB 09/08/23 Fluticasone Propionate (Nasal) (Allergy Nasal [place] 24 Ho) 50 Mcg/Act Spr, 1 SPRAY NA DAILY, SPRAY 09/08/23 Information Source: Patient Mode of Arrival: Ambulatory Past Medical History PAST MEDICAL HISTORY: Anxiety, Asthma, Depression, High Lipids, HTN Past Medical History (Other): POTS, SVT Surgical History: Hernia Repair Family History Family History: Family hx of DM, Family hx of heart sabina Social History Smoker: Non-Smoker, Other Alcohol: Denies ETOH Use Drugs: Denies Drug Use Lives In: Home EKG EKG : Pulse Rate (adult): 110 Cardiac Rhythm: ST Hypertrophy: RVH Was a procedure done? Was a procedure done?: No CP Differential Dx Differential Diagnosis: Angina, Anxiety / Panic Attack, Hyperventilation, PSVT, Sinus Tachycardia X-Ray, Labs, Meds, VS Vital Signs Date Time Temp Pulse Resp B/P (MAP) Pulse Ox O2 Delivery O2 Flow Rate FiO2 01/05/25 02:28 93 01/05/25 01:47 110 01/05/25 01:26 110 01/05/25 01:25 98.9 128 18 132/89 99 98.9 Lab Test 01/05/25 02:53 01/05/25 02:17 01/05/25 01:50 Range/Units Troponin I High Sensitivity < 3 L < 3 L </=54 ng/L Urine Opiates Screen Neg NEGATIVE Urine Fentanyl Screen Neg NEGATIVE Urine Barbiturates Screen Neg NEGATIVE Urine Phencyclidine Screen Neg NEGATIVE Urine Amphetamines Screen Neg NEGATIVE Urine Benzodiazepines Screen Neg NEGATIVE Urine Cocaine Screen Neg NEGATIVE Urine Cannabinoids Screen Neg NEGATIVE White Blood Count 8.8 4.4-10.8 10^3/uL Red Blood Count 5.22 4.5-5.90 10^6/uL Hemoglobin 15.4 13.5-17.5 g/dL Hematocrit 45.3 41.0-53.0 % Mean Corpuscular Volume 86.7 80.0-100.0 fL Mean Corpuscular Hemoglobin 29.5 28.0-32.0 pg Mean Corpuscular Hemoglobin Concent 34.0 32.0-36.0 g/dL Red Cell Distribution Width 13.3 11.8-14.3 % Platelet Count 266 140-450 10^3/uL Mean Platelet Volume 9.1 6.9-10.8 fL Neutrophils (%) (Auto) 49.3 37.0-80.0 % Lymphocytes (%) (Auto) 38.6 10.0-50.0 % Monocytes (%) (Auto) 8.5 0.0-12.0 % Eosinophils (%) (Auto) 3.1 0.0-7.0 % Basophils (%) (Auto) 0.5 0.0-2.0 % Neutrophils # (Auto) 4.3 1.6-8.6 10 ^3/uL Lymphocytes # (Auto) 3.4 0.4-5.4 10 ^3/uL Monocytes # (Auto) 0.7 0-1.3 10 ^3/uL Eosinophils # (Auto) 0.3 0-0.8 10 ^3/uL Basophils # (Auto) 0 0-0.2 10 ^3/uL Nucleated Red Blood Cells 0.1 % D-Dimer, Quantitative 0.34 0.0-0.49 mg/L FEU Sodium Level 142 136-145 mmol/L Potassium Level 4.1 3.5-5.1 mmol/L Chloride Level 105 98-107 mmol/L Carbon Dioxide Level 28 20-31 mmol/L Anion Gap 9 5-15 Blood Urea Nitrogen 11 9-23 mg/dL Creatinine 1.04 0.700-1.30 mg/dL Glomerular Filtration Rate Calc 102 >90 mL/min BUN/Creatinine Ratio 10.6 10.0-20.0 Serum Glucose 118 H 74-106 mg/dL Calcium Level 9.4 8.7-10.4 mg/dL Time of 1ST Reevaluation: 01:47 Reevaluation 1ST: Unchanged Patient Education/Counseling: Need For Follow Up Family Education/Counseling: Need For Follow Up SEPSIS Sepsis Screen Physician Orders Troponin-I Hs (01/05/25 04:43) Electrocardigram (01/05/25 02:00) Electrocardigram (01/05/25 03:00) Electrocardigram (01/05/25 05:00) Vital Signs Date Time Temp Pulse Resp B/P (MAP) Pulse Ox O2 Delivery O2 Flow Rate FiO2 01/05/25 02:28 93 01/05/25 01:47 110 01/05/25 01:26 110 01/05/25 01:25 98.9 128 18 132/89 99 98.9 Laboratory Tests Test 01/05/25 01:50 White Blood Count 8.8 10^3/uL (4.4-10.8) Departure 1 Departure Time of Disposition: 04:56 Impression: Primary Impression: Sinus tachycardia Additional Impression: POTS (postural orthostatic tachycardia syndrome) Disposition: ADMITTED INPATIENT Condition: Stable Comments 25 year old male with continued sinus tachycardia. Patient admitted to hospitalist service for further treatment, evaluation and mo nitoring. Critical Care Note Critical Care Time?: Yes (35 min-critical care time only) Stability Stability form required: No Heart Score Heart Score: Heart Score Response (Comments) Value History Moderate Suspicious 1 EKG Repolarization Disturb 1 Age <45 0 Risk Factors 1 or 2 risk factors 1 Troponin Normal limit 0 Total 3 I personally scribed for BYRON MARTINEZ MD ([email or web address]) on 01/05/25 at 01:47. Electronically submitted by Nba Pascual ([facility]). BYRON MARTINEZ MD Jan 05, 2025 01:47
[2025-01-05 02:16] LABS: Hematocrit 45.3 % (41.0-53.0); Hemoglobin 15.4 g/dL (13.5-17.5); Mean Corpuscular Hemoglobin 29.5 pg (28.0-32.0); Mean Corpuscular Volume 86.7 fL (80.0-100.0); Nucleated Red Blood Cells % 0.1 %
[2025-01-05 02:27] LABS: Chloride 105 mmol/L (98-107); Potassium 4.1 mmol/L (3.5-5.1); Sodium 142 mmol/L (136-145)
[2025-01-05 02:28] LABS: Anion Gap 9 (5-15); Carbon Dioxide 28 mmol/L (20-31)
[2025-01-05 02:29] LABS: Calcium 9.4 mg/dL (8.7-10.4)
[2025-01-05 02:33] LABS: BUN/Creatinine Ratio 10.6 (10.0-20.0); Blood Urea Nitrogen 11 mg/dL (9-23)
[2025-01-05 02:34] LABS: Glucose 118 mg/dL (74-106)
[2025-01-05 03:29] LABS: Amphetamine Screen, Urine Neg (NEGATIVE); Barbiturate Scree,Urine Neg (NEGATIVE); Benzodiazephine Screen, Urine Neg (NEGATIVE); Cannabinoid Screen, Urine Neg (NEGATIVE); Cocaine Screen, Urine Neg (NEGATIVE); Opiate Scree,Urine Neg (NEGATIVE); Phencyclidine Screen, Urine Neg (NEGATIVE)
[2025-01-05] MEDS: METOPROLOL TARTRATE 1MG/1ML-5ML VIAL IV ONE (05:07)
[2025-01-05] MEDS ORDERED: HYDROcodone-ACET 5/325MG TAB PO PRN (05:45)
[2025-01-05] MEDS ORDERED: ONDANSETRON HCL 4 MG/2 ML VIAL IV PRN (05:45)
[2025-01-05] MEDS ORDERED: DOCUSATE SOD 100 MG CAP PO PRN (05:45)
[2025-01-05] MEDS ORDERED: ACETAMINOPHEN 325 MG TAB PO PRN (05:45)
[2025-01-05] MEDS ORDERED: LORazepam 2MG/ML-1ML VIAL IV PRN (05:45)
[2025-01-05] MEDS: LEVALBUTEROL HCL 1.25 MG/3 ML NEB NEB SCH (06:00)
[2025-01-05] MEDS: SODIUM CHLOR 0.9% PF (SALINE LOCK) 10ML VIAL/SYR IV SCH (06:03)
[2025-01-05 06:18] LABS: Hematocrit 46.4 % (41.0-53.0); Hemoglobin 15.8 g/dL (13.5-17.5); Mean Corpuscular Hemoglobin 30.1 pg (28.0-32.0); Mean Corpuscular Volume 88.6 fL (80.0-100.0); Nucleated Red Blood Cells % 0.4 %
[2025-01-05 06:32] LABS: Albumin 4.8 g/dL (3.2-4.8); Alkaline Phosphatase 98 U/L (46-116); Anion Gap 8 (5-15); BUN/Creatinine Ratio 14.3 (10.0-20.0); Bilirubin, Total 0.8 mg/dL (0.2-1.0); Blood Urea Nitrogen 15 mg/dL (9-23); Calcium 9.7 mg/dL (8.7-10.4); Carbon Dioxide 28 mmol/L (20-31); Chloride 105 mmol/L (98-107); Potassium 4.7 mmol/L (3.5-5.1); Sodium 141 mmol/L (136-145); Total Protein 7.6 g/dL (5.7-8.2)
[2025-01-05 06:33] LABS: Alanine Aminotransferase 112 U/L (7-40); Glucose 115 mg/dL (74-106)
--- NOTE | 2025-01-05 06:33 | DVHHP2 ---
History of Present Illness Reason for Visit: POTS (postural orthostatic tachycardia syndrome) History of Present Illness The patient is a 25-year-old male with past medical history of depression, asthm a, hyperlipidemia, anxiety, pots, SVT, and hypertension who presented to [facility] ED with complaint of palpitations. Patient reports he has been experiencing palpitations with heart rate in the 160s when standing, associated with chest tightness, anxious, getting worse that prompted this visit. Patient was seen and evaluated in the ED, laboratory data shows WBC 8.8, platelets 266, sodium 142, potassium 4.1, BUN 11, creatinine 1.04, glucose 118, calcium 9.4, troponin 3, blood pressure 121/82, heart rate 128 trending down to 110, temperature 98.2 F, O2 saturation 99% on room air. Patient was given metoprolol 2.5 mg IV x1, please see medication orders section in the computer. On my assessment, mother at bedside, patient denied chest pain, no dizziness, diaphoresis, shortness of breaths, no diarrhea, nausea, vomiting, fever, no chills. Patient was admitted for further evaluation and medical management. Past Medical History Anxiety, Asthma, Depression, High Lipids, HTN, POTS, SVT Past Surgical History Hernia Repair Family History Reviewed, noncontributory to the management of this case. Past Social History The patient lives at home, denies smoking, alcohol or illicit drugs abuse. Review of Systems Constitutional: Yes: Weakness; No: Fever, Chills, Sweats, Malaise, Other Eyes: No: Pain, Vision change, Conjunctivae inflammation, Eyelid inflammation, Other, Redness ENT: No: Ear pain, Ear discharge, Nose pain, Nose discharge, Nose congestion, Mouth pain, Mouth swelling, Throat pain, Throat swelling, Other Respiratory: No: Cough, Dry, Shortness of breath, SOB with excertion, Wheezing, Hemoptysis, Pleuritic Pain, Sputum, Wheezing, Other Cardiovascular: Palpitations; No: Chest Pain, Orthopnea, Paroxysmal Noc. Dyspnea, Edema, Lt Headedness, Other Gastrointestinal: No: Nausea, Vomiting, Abdominal Pain, Diarrhea, Constipation, Melena, Hematochezia, Other Genitourinary: No Dysuria, No Frequency, No Incontinence, No Hematuria, No Retention, No Other Musculoskeletal: No: other, neck pain, shoulder pain, arm pain, back pain, hand pain, leg pain, foot pain Skin: No: Rash, Lesions, Jaundice, Bruising, Other Neurological: No: Weakness, Numbness, Incoordination, Change in speech, Confusion, Seizures, Other Allergies: Coded Allergies: NO KNOWN ALLERGIES (Unverified , 02/22/18) Medications Current Medications Medications Dose Ordered Sig/Jb Route Start Time Stop Time Status Last Admin Dose Admin Sertraline HCl 50 mg DAILY PO 01/05/25 10:00 Levalbuterol HCl 0.625 mg Q6HR NEB 01/05/25 06:00 Metoprolol Tartrate 25 mg BID PO 01/05/25 10:00 Famotidine 20 mg Q12HR IV 01/05/25 10:00 Lorazepam 0.5 mg Q8HP PRN IV 01/05/25 05:45 Quetiapine Fumarate 100 mg HS PO 01/05/25 22:00 Mirtazapine 15 mg HS PO 01/05/25 22:00 Sodium Chloride 10 ml Q8HR IV 01/05/25 06:00 01/05/25 06:03 10 ML Acetaminophen/ Hydrocodone Bitart 1 tab Q4HP PRN PO 01/05/25 05:45 Ondansetron HCl 4 mg Q4HP PRN IV 01/05/25 05:45 Docusate Sodium 100 mg BIDPRN PRN PO 01/05/25 05:45 Acetaminophen 650 mg Q6HP PRN PO 01/05/25 05:45 Exam Vital Signs Vital Signs Date Time Temp Pulse Resp B/P (MAP) Pulse Ox O2 Delivery O2 Flow Rate FiO2 01/05/25 06:03 95 16 120/64 (82) 100 01/05/25 04:50 Room Air* 0 21 01/05/25 04:50 98.2 98.2 General Appearance: Alert, Oriented X3, Cooperative, No acute distress HEENT: Atraumatic, PERRLA, EOMI, Mucous membr. moist/pink Respiratory: Normal air movement Cardiovascular: Regular rate, Normal S1, Normal S2, No murmurs Abdominal: Normal bowel sounds, Soft, No tenderness, No hepatospenomegaly, No masses Extremities: No clubbing, No cyanosis, No edema, Normal pulses, No tenderness/swelling Skin: No rashes, No significant lesion Neuro: Normal speech, Normal tone, Sensation intact, Cranial nerves 3-12 NL, Reflexes 2+, Other (Weakness) Psych/Mental Status: Mental status NL, Mood NL Labs/Xrays Labs Test 01/05/25 04:56 01/05/25 02:17 01/05/25 01:50 Range/Units White Blood Count 9.3 4.4-10.8 10^3/uL Red Blood Count 5.24 4.5-5.90 10^6/uL Hemoglobin 15.8 13.5-17.5 g/dL Hematocrit 46.4 41.0-53.0 % Mean Corpuscular Volume 88.6 80.0-100.0 fL Mean Corpuscular Hemoglobin 30.1 28.0-32.0 pg Mean Corpuscular Hemoglobin Concent 34.0 32.0-36.0 g/dL Red Cell Distribution Width 13.1 11.8-14.3 % Platelet Count 244 140-450 10^3/uL Mean Platelet Volume 9.1 6.9-10.8 fL Neutrophils (%) (Auto) 49.4 37.0-80.0 % Lymphocytes (%) (Auto) 36.1 10.0-50.0 % Monocytes (%) (Auto) 10.6 0.0-12.0 % Eosinophils (%) (Auto) 3.3 0.0-7.0 % Basophils (%) (Auto) 0.6 0.0-2.0 % Neutrophils # (Auto) 4.6 1.6-8.6 10 ^3/uL Lymphocytes # (Auto) 3.3 0.4-5.4 10 ^3/uL Monocytes # (Auto) 1.0 0-1.3 10 ^3/uL Eosinophils # (Auto) 0.3 0-0.8 10 ^3/uL Basophils # (Auto) 0.1 0-0.2 10 ^3/uL Nucleated Red Blood Cells 0.4 % Troponin I High Sensitivity < 3 L </=54 ng/L Urine Opiates Screen Neg NEGATIVE Urine Fentanyl Screen Neg NEGATIVE Urine Barbiturates Screen Neg NEGATIVE Urine Phencyclidine Screen Neg NEGATIVE Urine Amphetamines Screen Neg NEGATIVE Urine Benzodiazepines Screen Neg NEGATIVE Urine Cocaine Screen Neg NEGATIVE Urine Cannabinoids Screen Neg NEGATIVE D-Dimer, Quantitative 0.34 0.0-0.49 mg/L FEU SEPSIS Sepsis Screen Date sepsis recognized/suspect: Jan 05, 2025 Time Sepsis recognized/suspect: 0125 Recent Procedure: No On Antibiotic Therapy: No Respiratory Rate >20: No Heart Rate >90: No Temp<36 C (96.8 F) or >38.3 C: No SBP <90 or MAP <65 mmHG: No New Acute Mental Status Change: No Is the patient on CPAP, BIPAP,: No Physician Orders Electrocardigram (01/05/25 02:00) Electrocardigram (01/05/25 03:00) Electrocardigram (01/05/25 05:00) Comprehensive Metabolic Panel (01/05/25 05:31) * Cardiology Consult (01/05/25 05:31) Sertraline Hcl (Zoloft) (01/05/25 10:00) Levalbuterol Hcl (Xopenex Medneb) (01/05/25 06:00) Metoprolol Tartrate Tablet (Lopressor Ta (01/05/25 10:00) Famotidine Injection (Pepcid Injection) (01/05/25 10:00) Lorazepam 2mg/Ml Inj (Ativan Inj) (01/05/25 05:45) Quetiapine Fumarate Tablet (Seroquel Tab (01/05/25 22:00) Mirtazapine Tablet (Remeron Tablet) (01/05/25 22:00) Allergies (01/05/25 05:31) Code Status (01/05/25 05:31) Sodium Chloride Lock (Saline Lock Ns) (01/05/25 06:00) Oxygen Per Hour (01/05/25 05:31) Hydrocodone-Acet 5/325mg Tab (Fletcher 5/32 (01/05/25 05:45) Ondansetron Hcl (Zofran) (01/05/25 05:45) Docusate Sodium Capsule (Colace Capsule) (01/05/25 05:45) Fall Risk Precautions In Place QSHIFT (01/05/25 05:31) Complete Blood Count (01/06/25 04:00) Comprehensive Metabolic Panel (01/06/25 04:00) Cardiac Diet-2gna,Lofat,Lochol (01/05/25 Breakfast) Condition: Serious (01/05/25 05:31) Acetaminophen Tablet (Tylenol Tablet) (01/05/25 05:45) Maintain Bed Rest (01/05/25 05:31) Sequential Compression Device (01/05/25 ) Vital Signs Date Time Temp Pulse Resp B/P (MAP) Pulse Ox O2 Delivery O2 Flow Rate FiO2 01/05/25 06:03 95 16 120/64 (82) 100 01/05/25 05:07 111 121/82 01/05/25 04:50 111 17 100 Room Air* 0 21 01/05/25 04:50 98.2 111 17 121/82 (95) 100 98.2 01/05/25 04:38 91 01/05/25 02:28 93 01/05/25 01:47 110 01/05/25 01:26 110 01/05/25 01:25 98.9 128 18 132/89 99 98.9 Laboratory Tests Test 01/05/25 01:50 01/05/25 04:56 White Blood Count 8.8 10^3/uL (4.4-10.8) 9.3 10^3/uL (4.4-10.8) Medications Medications Dose Ordered Sig/Jb Route Start Time Stop Time Status Last Admin Dose Admin Sodium Chloride 10 ml Q8HR IV 01/05/25 06:00 01/05/25 06:03 10 ML Sodium Chloride 1,000 ml @ 1,000 mls/hr Q1H ONCE IV 01/05/25 01:45 01/05/25 02:44 DC 01/05/25 05:00 1,000 MLS/HR Assessment/Plan Assessment/Plan POTS (postural orthostatic tachycardia syndrome) Sinus tachycardia Generalized weakness Plan 1. Admit to telemetry unit 2. Breathing treatment 3. Pain control management 4. Management of fluids and electrolytes 5. Consultation for Cardiology 6. Diagnostic tests chest x-ray 7. DVT prophylaxis-on SCDs 8. Repeat labs CBC, CMP in a.m. 9. Continue with current medical management 10. Treatment plan discussed with patient and RN. Patient verbalized understanding. Plan discussed with: Patient, Other (RN) My Orders Orders - DAVE WESLEY DNP Procedure Category Date Status Time Comprehensive LAB 01/05/25 In Process Metabolic Panel 05:31 * Cardiology Consult CONS 01/05/25 Transmitted 05:31 Sertraline Hcl PHA 01/05/25 In Process (Zoloft) 10:00 Levalbuterol Hcl PHA 01/05/25 In Process (Xopenex Medneb) 06:00 Metoprolol Tartrate PHA 01/05/25 In Process Tablet (Lopressor Ta 10:00 Famotidine Injection PHA 01/05/25 In Process (Pepcid Injection) 10:00 Lorazepam 2mg/Ml Inj PHA 01/05/25 In Process (Ativan Inj) 05:45 Quetiapine Fumarate PHA 01/05/25 In Process Tablet (Seroquel Tab 22:00 Mirtazapine Tablet PHA 01/05/25 In Process (Remeron Tablet) 22:00 Allergies BUTCH 01/05/25 In Process 05:31 Code Status CODE 01/05/25 Transmitted 05:31 Sodium Chloride Lock PHA 01/05/25 In Process (Saline Lock Ns) 06:00 Oxygen Per Hour RT 01/05/25 Transmitted 05:31 Hydrocodone-Acet PHA 01/05/25 In Process 5/325mg Tab (Fletcher 05:45 Ondansetron Hcl PHA 01/05/25 In Process (Zofran) 05:45 Docusate Sodium PHA 01/05/25 In Process Capsule (Colace 05:45 Fall Risk Precautions BUTCH 01/05/[address] 05:31 Complete Blood Count LAB 01/06/25 Verified 04:00 Comprehensive LAB 01/06/25 Verified Metabolic Panel 04:00 Cardiac DIET 01/05/25 Transmitted Diet-2gna,Lofat,Lochol Breakfast Condition: Serious BUTCH 01/05/25 In Process 05:31 Acetaminophen Tablet PHA 01/05/25 In Process (Tylenol Tablet) 05:45 Maintain Bed Rest BUTCH 01/05/25 In Process 05:31 Sequential BUTCH 01/05/25 In Process Compression Device Problem List: (1) POTS (postural orthostatic tachycardia syndrome) (2) Sinus tachycardia (3) Generalized weakness Date of Service: Jan 05, 2025 Billing Provider: DAVE WESLEY DNP Common Visit Codes: [id number] INP/OBS CARE (HIGH) DAVE WESLEY DNP Jan 05, 2025 06:33
[2025-01-05] MEDS ORDERED: NITROGLYCERIN 0.4 MG SL TAB SL PRN (06:45)
[2025-01-05] MEDS ORDERED: MORPHINE SULFATE INJ 2 MG/ml SYRG IV PRN (06:45)
--- NOTE | 2025-01-05 07:07 | ECG ---
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
--- NOTE | 2025-01-05 07:07 | ECG ---
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
[2025-01-05] MEDS: FAMOTIDINE (10MG/ML) 2ML VL IV SCH (08:46)
[2025-01-05] MEDS ORDERED: MIRT-93 PO (08:49)
[2025-01-05] MEDS ORDERED: PAR20T PO (08:49)
[2025-01-05] MEDS: METOPROLOL TARTRATE 25 MG TAB PO SCH (08:52)
[2025-01-05] MEDS: SERTRALINE HCL 50 MG TAB PO SCH (08:52)
--- NOTE | 2025-01-05 09:11 | DVHINCON2 ---
LESLIE MAN RESIDENT 01/05/25 0911: Date Seen: Jan 05, 2025 Referring Physician Hong Davies NP Reason for Consultation Pots History of Present Illness Marques Hanna is a 25-year-old male who presents to the ED with chief complaint of palpitations which were triggered after standing evidencing 160 beats per minute associated with dyspnea and Functional Class IV, did not present any chest pain or dizziness. Patient presented scrotal rash three days before his admission, evaluated in urgent care and started antibiotics (doxycycline for two days), patient believes antibiotic could have provoked the tachycardia. Patient reports questionable diagnosis of postural orthostatic tachycardia syndrome (never diagnosed with tinnitus since patient could not go down to hill), he has been off metoprolol due to decreased blood pressure and evaluating due to insurance not covering cost for over three months, last time he was admitted in the hospital was in March 2024, his director of rooms is Dr. Ortega who has extensively completed cardiac workup (including echocardiogram, stress test x3 last one less than one year ago and event monitors). Patient does mention intentional weight loss of 30 lb in the past three months, he also reports unprotected sex with male partner in November 2024, but he has completed STI screening in two opportunities which were negative. Patient also reports that for many years he presented dysphagia to solids more than liquids, he has never sought medical attention. Denies any other associated symptoms Past medical history: Dyslipidemia treated with diet, anxiety, depression, history of hypertension which has resolved, questionable pots, last echo cardiogram on 03/2024 LVEF 55%, normal RV function, normal atrial and mild TR Surgical history: Right inguinal hernia repair, thoracic spine ependymoma resection Family history: Diabetes in all family members. Grandfather had bladder cancer, aunt had lung cancer, grandmother had heart disease Social history: Lives in [place] with family (next of kin is mother). Ex marijuana abuse quit two years ago. Denies current tobacco, alcohol and other drug abuse. He sexually active with male partners, last sexual encounter was on November 2024 with no barrier methods, he has completed STI tests in two opportunities which were negative (last one one week ago). Allergies: Denies Home medication: Paroxetine, lorazepam, quetiapine Patient seen and examined at bedside. Currently has no new complaints. Cardiology consulted for POTS. Past Medical History Per HPI Past Surgical History Per HPI Family History: Arthritis G8 FATHER Depression G8 MOTHER G8 FATHER Hypercholesterolemia G8 MOTHER Family History Per HPI Social History Per HPI Allergies: Coded Allergies: NO KNOWN ALLERGIES (Unverified , 02/22/18) Allergies Per HPI Home Meds Active Scripts Ivabradine HCl (Ivabradine Hydrochloride) 5 Mg Tab, 2.5 MG PO BID for 30 Days, #30 TAB Prov:MAYANK LEON RESIDENT 03/22/24 Promethazine-Dm (Promethazine Dm 6.25-15 mg/5Ml) 1 Tatyana Tatyana, 5 ML PO TID, #150 ML Prov:CHIO HICKS NM 02/10/24 Ibuprofen (Ibuprofen) 600 Mg Tab, 1 TAB PO QID, #30 TAB Prov:CHIO HICKS NM 02/10/24 Azithromycin (ZITHROMAX TABLET) 250 Mg Tb, 250 MG PO DAILY, #6 TAB Prov:CHIO HICKS NM 02/10/24 Bupropion Hcl (Wellbutrin Sr) 150 Mg Tab, 1 TAB PO BID, #60 TAB 5 Refills Prov:BILL PHILLIPS [facility] 10/10/23 Dicyclomine Hcl (BENTYL CAPSULE) 10 Mg Cp, 1 CAP PO Q6HPRN, #20 CAP 0 Refills Prov:FAISAL NICOLE PAC 08/27/23 Reported Medications Paroxetine (PAXIL TABLET) 20 Mg Tb, 15 TAB PO DAILY, #30 TAB 5 Refills 01/05/25 Mirtazapine (Remeron) 15 Mg Tab, 1 TAB PO QPM, #30 TAB 1 Refill 01/05/25 Mirtazapine (Remeron) 15 Mg Tab, 15 MG PO HS, TAB 03/21/24 Lorazepam (Ativan) 0.5 Mg Tab, 0.25 TAB PO DAILY, #30 TAB 03/21/24 Albuterol Sulfate (Albuterol Sulfate Hfa) 108 Mcg/Act Aer, 2 PUFF IN Q4H PRN for SHORTNESS OF BREATH, AER 09/08/23 Sertraline Hcl (Sertraline Hcl) 50 Mg Tab, 25 MG PO DAILY, MG 09/08/23 Famotidine (Famotidine) 40 Mg Tab, 40 MG PO HS, TAB 09/08/23 Quetiapine Fumerate (QUETIAPINE FUMARATE) 300 Mg Tab, 300 MG PO HS, MG 09/08/23 Lorazepam (ATIVAN TABLET) 0.5 Mg Tb, 2 TAB PO DAILY PRN for ANXIETY, #30 TAB 09/08/23 Fluticasone Propionate (Nasal) (Allergy Nasal [place] 24 Ho) 50 Mcg/Act Spr, 1 SPRAY NA DAILY, SPRAY 09/08/23 Current Medications Current Medications Medications (Trade) Dose Ordered Sig/Jb Route PRN Reason Start Time Stop Time Status Last Admin Sertraline HCl (Zoloft) 50 mg DAILY PO 01/05/25 10:00 Levalbuterol HCl (Xopenex Medneb) 0.625 mg Q6HR NEB 01/05/25 06:00 Metoprolol Tartrate (Lopressor Tablet) 25 mg BID PO 01/05/25 10:00 Famotidine (Pepcid Injection) 20 mg Q12HR IV 01/05/25 10:00 01/05/25 08:46 Lorazepam (Ativan Inj) 0.5 mg Q8HP PRN IV ANXIETY 01/05/25 05:45 Quetiapine Fumarate (SEROquel TABLET) 100 mg HS PO 01/05/25 22:00 Mirtazapine (Remeron Tablet) 15 mg HS PO 01/05/25 22:00 Sodium Chloride (Saline Lock Ns) 10 ml Q8HR IV 01/05/25 06:00 01/05/25 06:03 Acetaminophen/ Hydrocodone Bitart ([place] 5/325MG Tab) 1 tab Q4HP PRN PO MODERATE PAIN (4-6 PAIN SCALE) 01/05/25 05:45 Ondansetron HCl (Zofran) 4 mg Q4HP PRN IV NAUSEA / VOMITING 01/05/25 05:45 Docusate Sodium (Colace Capsule) 100 mg BIDPRN PRN PO FOR CONSTIPATION 01/05/25 05:45 Acetaminophen (Tylenol Tablet) 650 mg Q6HP PRN PO PAIN SCALE 1-3 OR TEMP>100.4 01/05/25 05:45 Nitroglycerin (Ntrostat Sublingual) 0.4 mg Q5MINP PRN SL FOR CHEST PAIN 01/05/25 06:45 Morphine Sulfate 2 mg Q30M PRN IV FOR CHEST PAIN 01/05/25 06:45 Review of Systems Per HPI Vital Signs Vital Signs Date Time Temp Pulse Resp B/P (MAP) Pulse Ox O2 Delivery O2 Flow Rate FiO2 01/05/25 08:52 78 131/75 01/05/25 08:03 98.2 18 100 98.2 01/05/25 04:50 Room Air* 0 21 Physical Exam Patient lying in bed, in no acute distress General: Lucid, afebrile, mucosae are dry Cardiovascular: Normal S1 and S2. No murmurs, gallops or rubs Respiratory: Normal ventilation mechanics. Clear lung sounds on auscultation Abdomen: Soft, nontender, no organomegaly, normal bowel sounds MSK/skin: Mobilizes 4 limbs. Skin is dry and warm : Negative costovertebral angle tenderness. Presents small 2 mm erythematous ulcerated lesion with mild hepatic secretion and scrotum. Associated lymph nodes which are hard and nontender Neurological: Oriented in 3 spheres. No motor no sensitive deficits. Pupils are isocoric and reactive Labs/Diagnostic Data Labs Test 01/05/25 04:56 01/05/25 02:17 01/05/25 01:50 Range/Units White Blood Count 9.3 4.4-10.8 10^3/uL Red Blood Count 5.24 4.5-5.90 10^6/uL Hemoglobin 15.8 13.5-17.5 g/dL Hematocrit 46.4 41.0-53.0 % Mean Corpuscular Volume 88.6 80.0-100.0 fL Mean Corpuscular Hemoglobin 30.1 28.0-32.0 pg Mean Corpuscular Hemoglobin Concent 34.0 32.0-36.0 g/dL Red Cell Distribution Width 13.1 11.8-14.3 % Platelet Count 244 140-450 10^3/uL Mean Platelet Volume 9.1 6.9-10.8 fL Neutrophils (%) (Auto) 49.4 37.0-80.0 % Lymphocytes (%) (Auto) 36.1 10.0-50.0 % Monocytes (%) (Auto) 10.6 0.0-12.0 % Eosinophils (%) (Auto) 3.3 0.0-7.0 % Basophils (%) (Auto) 0.6 0.0-2.0 % Neutrophils # (Auto) 4.6 1.6-8.6 10 ^3/uL Lymphocytes # (Auto) 3.3 0.4-5.4 10 ^3/uL Monocytes # (Auto) 1.0 0-1.3 10 ^3/uL Eosinophils # (Auto) 0.3 0-0.8 10 ^3/uL Basophils # (Auto) 0.1 0-0.2 10 ^3/uL Nucleated Red Blood Cells 0.4 % Troponin I High Sensitivity < 3 L </=54 ng/L Urine Opiates Screen Neg NEGATIVE Urine Fentanyl Screen Neg NEGATIVE Urine Barbiturates Screen Neg NEGATIVE Urine Phencyclidine Screen Neg NEGATIVE Urine Amphetamines Screen Neg NEGATIVE Urine Benzodiazepines Screen Neg NEGATIVE Urine Cocaine Screen Neg NEGATIVE Urine Cannabinoids Screen Neg NEGATIVE D-Dimer, Quantitative 0.34 0.0-0.49 mg/L FEU Sodium Level 141 136-145 mmol/L Potassium Level 4.7 3.5-5.1 mmol/L Chloride Level 105 98-107 mmol/L Carbon Dioxide Level 28 20-31 mmol/L Anion Gap 8 5-15 Blood Urea Nitrogen 15 9-23 mg/dL Creatinine 1.05 0.700-1.30 mg/dL Glomerular Filtration Rate Calc 100 >90 mL/min BUN/Creatinine Ratio 14.3 10.0-20.0 Serum Glucose 115 H 74-106 mg/dL Calcium Level 9.7 8.7-10.4 mg/dL Total Bilirubin 0.8 0.2-1.0 mg/dL Aspartate Amino Transferase (AST) 55 H 13-40 U/L Alanine Aminotransferase (ALT) 112 H 7-40 U/L Alkaline Phosphatase 98 46-116 U/L Total Protein 7.6 5.7-8.2 g/dL Albumin 4.8 3.2-4.8 g/dL Assessment Questionable POTS Simple hyperglycemia Rule out viral infection Dyslipidemia Anxiety Depression Plan/Recommendation EKG on admission shows sinus rhythm at 90 bpm with no significant ST alteration. Troponin negative, no chest pain. Patient currently on Metoprolol 25 mg PO bid, with good tolerance Ordered orthostatic vital signs and echocardiogram Completed stress test less than 1 year ago Ordered complementary laboratory work up to evaluate infection and secondary causes of tachycardia. Patient would benefit from Tilt table test as outpatient Goals of care discussed with patient for over 18 minutes: Full Code status Discussed plan with Dr Ortega, patient and nurses: Patient currently on Telemetry status. Has had past extensive ischemic work-up. Ordered echocardiogram and orthostatic vital signs. Also ordered complementary work up for secondary causes of tachycardia. Plan discussed with: Patient, Other (Nurses) NYHA Physical activity limitations: Class1(None)absent sob, Date of Service: Jan 05, 2025 Billing Provider: MARIA TERESA BOTELLO Sr., MD Cardiology Common Codes: [id number] INP/OBS CARE (High) Cardiology Secondary Visit Cod: [id number] CARE PLAN 30 MINUTES JAMAR ORTEGA MD 01/06/25 1348: Family History: Arthritis G8 FATHER Depression G8 MOTHER G8 FATHER Hypercholesterolemia G8 MOTHER Allergies: Coded Allergies: NO KNOWN ALLERGIES (Unverified , 02/22/18) Home Meds Active Scripts Ivabradine HCl (Ivabradine Hydrochloride) 5 Mg Tab, 2.5 MG PO BID for 30 Days, #30 TAB Prov:MAYANK LEON RESIDENT 03/22/24 Promethazine-Dm (Promethazine Dm 6.25-15 mg/5Ml) 1 Tatyana Tatyana, 5 ML PO TID, #150 ML Prov:CHIO HICKS NM 02/10/24 Ibuprofen (Ibuprofen) 600 Mg Tab, 1 TAB PO QID, #30 TAB Prov:CHIO HICKS NM 02/10/24 Azithromycin (ZITHROMAX TABLET) 250 Mg Tb, 250 MG PO DAILY, #6 TAB Prov:CHIO HICKS NM 02/10/24 Bupropion Hcl (Wellbutrin Sr) 150 Mg Tab, 1 TAB PO BID, #60 TAB 5 Refills Prov:BILL PHILLIPS [facility] 10/10/23 Dicyclomine Hcl (BENTYL CAPSULE) 10 Mg Cp, 1 CAP PO Q6HPRN, #20 CAP 0 Refills Prov:FAISAL NICOLE PAC 08/27/23 Reported Medications Paroxetine (PAXIL TABLET) 20 Mg Tb, 15 TAB PO DAILY, #30 TAB 5 Refills 01/05/25 Mirtazapine (Remeron) 15 Mg Tab, 1 TAB PO QPM, #30 TAB 1 Refill 01/05/25 Mirtazapine (Remeron) 15 Mg Tab, 15 MG PO HS, TAB 03/21/24 Lorazepam (Ativan) 0.5 Mg Tab, 0.25 TAB PO DAILY, #30 TAB 03/21/24 Albuterol Sulfate (Albuterol Sulfate Hfa) 108 Mcg/Act Aer, 2 PUFF IN Q4H PRN for SHORTNESS OF BREATH, AER 09/08/23 Sertraline Hcl (Sertraline Hcl) 50 Mg Tab, 25 MG PO DAILY, MG 09/08/23 Famotidine (Famotidine) 40 Mg Tab, 40 MG PO HS, TAB 09/08/23 Quetiapine Fumerate (QUETIAPINE FUMARATE) 300 Mg Tab, 300 MG PO HS, MG 09/08/23 Lorazepam (ATIVAN TABLET) 0.5 Mg Tb, 2 TAB PO DAILY PRN for ANXIETY, #30 TAB 09/08/23 Fluticasone Propionate (Nasal) (Allergy Nasal [place] ) 50 Mcg/Act Spr, 1 SPRAY NA DAILY, SPRAY 09/08/23 Plan/Recommendation pt sees me offered ivabradine, pt keeps changing mind on his BB of choice he has tachy with walking had hx of svt as well should fu [facility] in future Plan discussed with: Patient LESLIE MAN RESIDENT Jan 05, 2025 09:11 JAMAR ORTEGA MD Jan 06, 2025 13:48
[2025-01-05 10:53] LABS: INR 1.04 (0.9-1.15); Partial Thromboplastin Time 27.6 SEC (24.5-34.5); Prothrombin Time 11.0 sec (9.3-11.8); Triglycerides 69.0 mg/dL (< 150)
[2025-01-05 10:54] LABS: Magnesium 1.9 mg/dL (1.6-2.6)
[2025-01-05 10:55] LABS: Cholesterol 159.0 mg/dL (< 200); HDL Cholesterol 41.0 mg/dL (40-59)
[2025-01-05] MEDS: PARoxetine 20 MG TAB PO ONE (13:35)
[2025-01-05 13:55] LABS: Urine Protein, UAD Negative (Negative)
[2025-01-05 14:00] LABS: COVID19 ANTIGEN SOFIA FIA NEGATIVE (NEGATIVE)
--- NOTE | 2025-01-05 14:33 | DVH ---
EXAM: XY CHEST XRAY 1 VIEW Indication: pain Rule out PNA Technique: Single frontal view of the chest was obtained Comparison: XY CHEST PORTABLE on DOS: 12/20/24, XY CHEST PORTABLE on DOS: 12/11/24, XY CHEST PORTABLE o n DOS: 03/20/24, XY CHEST XRAY 1 VIEW on DOS: 02/10/24, XY CHEST TWO VIEWS ROUTINE on DOS: 01/23/24 FINDINGS: Lines and Tubes: None Lungs: No focal consolidation. Pleura: No effusion. No pneumothorax. Cardiomediastinal contours: Unremarkable Bones: No acute osseous abnormality. IMPRESSION: No acute cardiopulmonary disease.
[2025-01-05 14:35] LABS: Hepatitis B Surface Antigen Negative (Negative); Hepatitis C Antibody Negative (Negative)
[2025-01-05] MEDS: SODIUM CHLORIDE 0.9% 1,000 ML IV SCH (20:56)
[2025-01-05] MEDS: MIRTAZAPINE 30 MG TAB PO SCH (22:00)
[2025-01-05] MEDS: IVABRADINE 5 MG TAB PO SCH (22:00)
[2025-01-06] VITALS (7 sets, daily range): BP systolic 97–137; BP diastolic 59–91; PULSE 63–153; RESP 17–18; TEMP 97.7–98; O2SAT 96–100
[2025-01-06 07:12] LABS: Hematocrit 39.8 % (41.0-53.0); Hemoglobin 13.7 g/dL (13.5-17.5); Mean Corpuscular Hemoglobin 29.8 pg (28.0-32.0); Mean Corpuscular Volume 86.7 fL (80.0-100.0); Nucleated Red Blood Cells % 0.1 %
[2025-01-06 07:33] LABS: Albumin 4.2 g/dL (3.2-4.8); Alkaline Phosphatase 83 U/L (46-116); Anion Gap 10 (5-15); BUN/Creatinine Ratio 11.4 (10.0-20.0); Blood Urea Nitrogen 10 mg/dL (9-23); Calcium 8.8 mg/dL (8.7-10.4); Carbon Dioxide 26 mmol/L (20-31); Chloride 106 mmol/L (98-107); Glucose 88 mg/dL (74-106); Potassium 3.8 mmol/L (3.5-5.1); Sodium 142 mmol/L (136-145); Total Protein 6.9 g/dL (5.7-8.2)
[2025-01-06 07:38] LABS: Alanine Aminotransferase 82 U/L (7-40); Bilirubin, Total 1.5 mg/dL (0.2-1.0)
[2025-01-06] MEDS: PARoxetine 20 MG TAB PO SCH (10:29)
--- NOTE | 2025-01-06 13:52 | DVHSR ---
APPROVED REPORT EXAM: Two-dimensional and M-mode echocardiogram with Doppler and color Doppler. Blood Pressure: 114/71 mmHg INDICATION Chest Pain RISK FACTORS Height: 6', Weight: 152 DIMENSIONS LVDd4.3 (3.8-5.7cm)LA (2D)3.4 (1.9-4.0cm)Aortic Root3.1 (2.0-3.7cm) LVDs3.1 (2.5-4.0cm)LA (MM) (1.9-4.0cm)Aortic Cusp Exc1.9 (1.5-2.0cm) EF (%) 56.0 (55-70%)Rt. Atrium3.9 (1.9-4.0cm)Asc. Aorta cm IVSd0.7 (0.7-1.1cm)RV (D) (1.8-2.4cm) PWd0.8 (0.7-1.1cm) Mitral Valve MitralMitral Stenosis E wave0.60m/sMV Mean GR.mmHg A wave0.40m/sMV Peak GR.mmHg E/A ratio1.52D MVAcm2 Aortic Valve Aortic ValveAortic Stenosis V10.60m/Tequila Mean GR.1mmHg V20.80m/Tequila Peak GR.3mmHg LVOT Diameter2.2 (1.8-2.4cm)Doppler AVA2.85cm2 Pulmonic Valve V20.90m/s Conclusion lvef 65% normal rv function normal atria no severe valve abnormalities noted
--- NOTE | 2025-01-06 16:37 | DVHPNRES ---
Progress Note Date Seen: Jan 06, 2025 Resident Creating Document: ANKIT LUU RESIDENT Has the PT tested + for MRSA If YES, has PT been informed?: No Medical Necessity Reason Pt with a Central, PICC or Fol: No Subjective Review of Systems Marques Hanna is a 25-year-old male who presents to the ED with chief complaint of palpitations which were triggered after standing evidencing 160 beats per minute associated with dyspnea and Functional Class IV, did not present any chest pain or dizziness. Patient presented scrotal rash three days before his admission, evaluated in urgent care and started antibiotics (doxycycline for two days), patient believes antibiotic could have provoked the tachycardia. 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 Ortega who has extensively completed cardiac workup (including echocardiogram, stress test x3 last one less than one year ago and event monitors). Patient does mention intentional weight loss of 30 lb in the past three months, he also reports unprotected sex with male partner in November 2024, but he has completed STI screening in two opportunities which were negative. Patient also reports that for many years he presented dysphagia to solids more than liquids, he has never sought medical attention. Denies any other associated symptoms Past medical history: Dyslipidemia treated with diet, anxiety, depression, history of hypertension which has resolved, questionable pots, last echocardiogram on 03/2024 LVEF 55%, normal RV function, normal atrial and mild TR Surgical history: Right inguinal hernia repair, thoracic spine ependymoma resection Family history: Diabetes in all family members. Grandfather had bladder cancer, aunt had lung cancer, grandmother had heart disease Social history: Lives in [place] with family (next of kin is mother). Ex marijuana abuse quit two years ago. Denies current tobacco, alcohol and other drug abuse. He sexually active with male partners, last sexual encounter was on November 2024 with no barrier methods, he has completed STI tests in two opportunities which were negative (last one one week ago). Allergies: Denies Home medication: Paroxetine, lorazepam, quetiapine Patient seen and examined at bedside. Currently has no new complaints. Cardiology consulted for POTS: today the patient stated he will not like to be on ivabradine because interacts with his SSRIs, he stated that propranolol worked before better than metoprolol, ECHO normal Objective vital signs Vital Sign Date Time Temp Pulse Resp B/P (MAP) Pulse Ox O2 Delivery O2 Flow Rate FiO2 01/06/25 09:00 98.0 69 18 97/59 (72) 97 98.0 01/06/25 08:00 Room Air* 0 21 Total Intake and Output 01/05/25 01/05/25 01/06/25 15:00 23:00 07:00 Intake Total 550 ml 550 ml Balance 550 ml 550 ml medications Current Medications Medications Dose Ordered Sig/Jb Route Start Time Stop Time Status Last Admin Dose Admin Famotidine 20 mg Q12HR IV 01/05/25 10:00 01/06/25 09:24 20 MG Lorazepam 0.5 mg Q8HP PRN IV 01/05/25 05:45 Quetiapine Fumarate 100 mg HS PO 01/05/25 22:00 Mirtazapine 15 mg HS PO 01/05/25 22:00 01/05/25 22:00 15 MG Sodium Chloride 10 ml Q8HR IV 01/05/25 06:00 01/06/25 14:36 10 ML Acetaminophen/ Hydrocodone Bitart 1 tab Q4HP PRN PO 01/05/25 05:45 Ondansetron HCl 4 mg Q4HP PRN IV 01/05/25 05:45 Docusate Sodium 100 mg BIDPRN PRN PO 01/05/25 05:45 Acetaminophen 650 mg Q6HP PRN PO 01/05/25 05:45 Paroxetine HCl 20 mg DAILY PO 01/06/25 10:00 01/06/25 10:29 20 MG Sodium Chloride 1,000 ml @ 75 mls/hr [id number] IV 01/05/25 18:30 01/06/25 09:17 75 MLS/HR Propranolol HCl 10 mg BID PO 01/06/25 22:00 Examination Patient lying in bed, in no acute distress General: Lucid, afebrile, mucosae are dry Cardiovascular: Normal S1 and S2. No murmurs, gallops or rubs Respiratory: Normal ventilation mechanics. Clear lung sounds on auscultation Abdomen: Soft, nontender, no organomegaly, normal bowel sounds MSK/skin: Mobilizes 4 limbs. Skin is dry and warm Neurological: Oriented in 3 spheres. No motor no sensitive deficits. Pupils are isocoric and reactive laboratory and microbiology Laboratory Tests 01/06/25 06:24 Test 01/06/25 06:24 Range/Units Serum Glucose 88 74-106 mg/dL Problem List/Assessment/Plan Problem List/Assessment/Plan Questionable POTS Simple hyperglycemia Rule out viral infection Dyslipidemia Anxiety Depression Plan/Recommendation EKG on admission shows sinus rhythm at 90 bpm with no significant ST alteration. Troponin negative, no chest pain. Cardiology consulted for POTS: today the patient stated he will not like to be on ivabradine because interacts with his SSRIs, he stated that propranolol worked before better than metoprolol, ECHO normal Completed stress test less than 1 year ago We will sign off for now, patient will f/u Dr Ortega in clinic Continue propranolol 10 mg BID Goals of care discussed with patient for over 18 minutes: Full Code status Discussed plan with Dr Ortega Plan discussed with: Patient, Other (rn) My Orders My Orders Orders - ANKIT LUU Procedure Category Date Status Time Propranolol Hcl PHA 01/06/25 In Process Tablet (Inderal 22:00 Dietary Evaluation Review Comments: 1) Continue cardiac diet 2) Encourage optimal PO intake 3) Follow-up with cardiology 4) Continue to monitor I&O, labs, and skin integrity Expected Outcomes/Goals: 1) appetite and labs to improve 2) f/u in 3-5 days Visit Coding Cardiology RES Date of Service: Jan 06, 2025 Billing Provider: JAMAR ORTEGA MD Cardiology Common Codes: [id number] CARE 30-74 MIN ANKIT LUU Jan 06, 2025 16:37 JAMAR ORTEGA MD Jan 07, 2025 14:46
[2025-01-06 17:07] LABS: Chlamydia Trachomatis, NAA Negative (Negative); Neisseria gonorrhoeae, NAA Negative (Negative)
--- NOTE | 2025-01-06 18:05 | DVHPN2 ---
Subjective IM assuming the care of the patient from today onwards. Patient is currently here for POTS(postural orthostatic tachycardia syndrome). Patient kept complaining of high heart rate when he stands up. Changes from previous H/P or p: No Changes Eyes: No Pain, No Vision change, No Conjunctivae inflammation, No Eyelid inflammation, No Other, No Redness ENT: No Ear pain, No Ear discharge, No Nose pain, No Nose discharge, No Nose congestion, No Mouth pain, No Mouth swelling, No Throat pain, No Throat swelling, No Other Cardiovascular: No Chest Pain; Palpitations; No Orthopnea, No Paroxysmal Noc. Dyspnea, No Edema, No Lt Headedness, No Other Respiratory: No Cough, No Dry, No Shortness of breath, No SOB with excertion, No Wheezing, No Hemoptysis, No Pleuritic Pain, No Sputum, No Other Gastrointestinal: No Nausea, No Vomiting, No Abdominal Pain, No Diarrhea, No Constipation, No Melena, No Hematochezia, No Other Genitourinary: No Dysuria, No Frequency, No Incontinence, No Hematuria, No Retention, No Other Musculoskeletal: No other, No neck pain, No shoulder pain, No arm pain, No back pain, No hand pain, No leg pain, No foot pain Skin: No Rash, No Lesions, No Jaundice, No Bruising, No Other Objective Vitals Vital Signs Date Time Temp Pulse Resp B/P (MAP) Pulse Ox O2 Delivery O2 Flow Rate FiO2 01/06/25 09:00 98.0 69 18 97/59 (72) 97 98.0 01/06/25 08:00 Room Air* 0 21 Intake/Output Intake and Output 01/06/25 07:00 Intake Total 1100 ml Balance 1100 ml Intake Oral 550 ml IV Total 550 ml # Voids 3 Exam HEENT pupils are reactive Neck is supple CV is S1-S2 regular rate and rhythm Tobacco use GI positive bowel sounds Extremity no pedal edema 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 motor deficits Medications Current Medications Medications Dose Ordered Sig/Jb Route Start Time Stop Time Status Last Admin Dose Admin Famotidine 20 mg Q12HR IV 01/05/25 10:00 01/06/25 09:24 20 MG Lorazepam 0.5 mg Q8HP PRN IV 01/05/25 05:45 Quetiapine Fumarate 100 mg HS PO 01/05/25 22:00 Mirtazapine 15 mg HS PO 01/05/25 22:00 01/05/25 22:00 15 MG Sodium Chloride 10 ml Q8HR IV 01/05/25 06:00 01/06/25 14:36 10 ML Acetaminophen/ Hydrocodone Bitart 1 tab Q4HP PRN PO 01/05/25 05:45 Ondansetron HCl 4 mg Q4HP PRN IV 01/05/25 05:45 Docusate Sodium 100 mg BIDPRN PRN PO 01/05/25 05:45 Acetaminophen 650 mg Q6HP PRN PO 01/05/25 05:45 Paroxetine HCl 20 mg DAILY PO 01/06/25 10:00 01/06/25 10:29 20 MG Sodium Chloride 1,000 ml @ 75 mls/hr [id number] IV 01/05/25 18:30 01/06/25 09:17 75 MLS/HR Propranolol HCl 10 mg BID PO 01/06/25 22:00 Laboratory Results Laboratory Tests 01/06/25 06:24 Chemistry Test 01/06/25 06:24 Albumin 4.2 g/dL (3.2-4.8) Calcium Level 8.8 mg/dL (8.7-10.4) Total Protein 6.9 g/dL (5.7-8.2) LFT Test 01/06/25 06:24 Alanine Aminotransferase (ALT) 82 U/L (7-40) H Alkaline Phosphatase 83 U/L (46-116) Aspartate Amino Transferase (AST) 38 U/L (13-40) Total Bilirubin 1.5 mg/dL (0.2-1.0) H Urinalysis Test 01/05/25 02:17 Urine Color Light-yellow (Yellow) Urine Clarity Clear (Clear) Urine pH 5.0 (5.0-9.0) Urine Specific [place] 1.010 (1.001-1.035) Urine Protein Negative (Negative) Urine Ketones Negative (Negative) Urine Blood Negative /uL (Negative) Urine Nitrite Negative (Negative) Urine Bilirubin Negative (Negative) Urine Urobilinogen Normal mg/dL (Negative) Urine Leukocyte Esterase Negative /uL (Negative) Urine RBC <1 /hpf (0 - 3) Urine Microscopic WBC < 1 /HPF (0-3) Urine Squamous Epithelial Cells None seen /hpf (<5) Urine Bacteria None seen /hpf (None Seen) Urine Glucose Normal mg/dL (Normal) Assessment/Plan Assessment/Plan 25-year-old young male with known history of anxiety and depression disorder is here for palpitations and high heart rate found to have 1. Suspected postural orthostatic tachycardia syndrome(POTS) 2. Palpitation with a high heart rates continued 1. 3. Anxiety and depression disorder 4. Dyslipidemia -patient does not want take beta kris, continue propranolol, once symptoms improve patient can be discharged Plan discussed with: Patient Date of Service: Jan 06, 2025 Billing Provider: SHEYLA PARRA MD Common Visit Codes: [id number] INP/OBS CARE(HIGH) SHEYLA PARRA MD Jan 06, 2025 18:05
[2025-01-06] MEDS: PROPRANOLOL HCL 20 MG TAB PO SCH (22:00)
[2025-01-07] VITALS (9 sets, daily range): BP systolic 104–135; BP diastolic 68–79; PULSE 67–101; RESP 17–20; TEMP 97.5–98.7; O2SAT 99–100
--- NOTE | 2025-01-07 16:25 | DVHPN2 ---
Subjective . Patient is currently here for POTS(postural orthostatic tachycardia syndrome). Patient kept complaining of high heart rate when he stands up. Changes from previous H/P or p: No Changes Eyes: No Pain, No Vision change, No Conjunctivae inflammation, No Eyelid inflammation, No Other, No Redness ENT: No Ear pain, No Ear discharge, No Nose pain, No Nose discharge, No Nose congestion, No Mouth pain, No Mouth swelling, No Throat pain, No Throat swelling, No Other Cardiovascular: No Chest Pain; Palpitations; No Orthopnea, No Paroxysmal Noc. Dyspnea, No Edema, No Lt Headedness, No Other Respiratory: No Cough, No Dry, No Shortness of breath, No SOB with excertion, No Wheezing, No Hemoptysis, No Pleuritic Pain, No Sputum, No Other Gastrointestinal: No Nausea, No Vomiting, No Abdominal Pain, No Diarrhea, No Constipation, No Melena, No Hematochezia, No Other Genitourinary: No Dysuria, No Frequency, No Incontinence, No Hematuria, No Retention, No Other Musculoskeletal: No other, No neck pain, No shoulder pain, No arm pain, No back pain, No hand pain, No leg pain, No foot pain Skin: No Rash, No Lesions, No Jaundice, No Bruising, No Other Objective Vitals Vital Signs Date Time Temp Pulse Resp B/P (MAP) Pulse Ox O2 Delivery O2 Flow Rate FiO2 01/07/25 13:00 98.2 69 20 118/76 (90) 100 98.2 01/07/25 08:00 Room Air* 0 21 Intake/Output Intake and Output 01/07/25 07:00 Intake Total 1200 ml Balance 1200 ml Intake Oral 1200 ml # Voids 12 # Bowel Movements 1 Exam HEENT pupils are reactive Neck is supple CV is S1-S2 regular rate and rhythm Tobacco use GI positive bowel sounds Extremity no pedal edema [employer] no motor deficits Medications Current Medications Medications Dose Ordered Sig/Jb Route Start Time Stop Time Status Last Admin Dose Admin Famotidine 20 mg Q12HR IV 01/05/25 10:00 01/07/25 10:22 20 MG Lorazepam 0.5 mg Q8HP PRN IV 01/05/25 05:45 Quetiapine Fumarate 100 mg HS PO 01/05/25 22:00 Mirtazapine 15 mg HS PO 01/05/25 22:00 01/06/25 21:11 15 MG Sodium Chloride 10 ml Q8HR IV 01/05/25 06:00 01/07/25 13:53 10 ML Acetaminophen/ Hydrocodone Bitart 1 tab Q4HP PRN PO 01/05/25 05:45 Ondansetron HCl 4 mg Q4HP PRN IV 01/05/25 05:45 Docusate Sodium 100 mg BIDPRN PRN PO 01/05/25 05:45 Acetaminophen 650 mg Q6HP PRN PO 01/05/25 05:45 Paroxetine HCl 20 mg DAILY PO 01/06/25 10:00 01/07/25 10:22 20 MG Sodium Chloride 1,000 ml @ 75 mls/hr [id number] IV 01/05/25 18:30 01/06/25 21:25 75 MLS/HR Propranolol HCl 10 mg BID PO 01/06/25 22:00 Laboratory Results Laboratory Tests 01/06/25 06:24 Urinalysis Test 01/05/25 02:17 Urine Color Light-yellow (Yellow) Urine Clarity Clear (Clear) Urine pH 5.0 (5.0-9.0) Urine Specific [place] 1.010 (1.001-1.035) Urine Protein Negative (Negative) Urine Ketones Negative (Negative) Urine Blood Negative /uL (Negative) Urine Nitrite Negative (Negative) Urine Bilirubin Negative (Negative) Urine Urobilinogen Normal mg/dL (Negative) Urine Leukocyte Esterase Negative /uL (Negative) Urine RBC <1 /hpf (0 - 3) Urine Microscopic WBC < 1 /HPF (0-3) Urine Squamous Epithelial Cells None seen /hpf (<5) Urine Bacteria None seen /hpf (None Seen) Urine Glucose Normal mg/dL (Normal) Microbiology Microbiology Date/Time Source Procedure Growth Status 01/07/25 06:15 Nose MRSA Screen - Final Complete Assessment/Plan Assessment/Plan 25-year-old young male with known history of anxiety and depression disorder is here for palpitations and high heart rate found to have 1. Suspected postural orthostatic tachycardia syndrome(POTS) 2. Palpitation with a high heart rates continued 1. 3. Anxiety and depression disorder 4. Dyslipidemia -patient does not want take beta kris, continue propranolol, once symptoms improve patient can be discharged Plan discussed with: Patient Date of Service: Jan 07, 2025 Billing Provider: SHEYLA PARRA MD Common Visit Codes: [id number] INP/OBS CARE(HIGH) SHEYLA PARRA MD Jan 07, 2025 16:25
--- NOTE | 2025-01-07 20:02 | ECG ---
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
[2025-01-08 01:00] VITALS: BP 106/65; PULSE 69; RESP 17; TEMP 98.1; O2SAT 99
[2025-01-08 05:00] VITALS: BP 120/81; PULSE 68; RESP 17; TEMP 97.7; O2SAT 99
[2025-01-08 08:00] VITALS: PULSE 68; PULSE 88; RESP 17; O2SAT 99
[2025-01-08 09:00] VITALS: BP_SYST 113; BP_SYST 115; BP_DIAS 69; BP_DIAS 76; PULSE 79; RESP 16; RESP 18; TEMP 98.1; O2SAT 100; O2SAT 99
[2025-01-08 13:00] VITALS: BP 113/76; PULSE 79; RESP 16; TEMP 98.1; O2SAT 100
[2025-01-08] MEDS ORDERED: PROP1TAB53 PO (15:28)
--- NOTE | 2025-01-08 15:30 | DVHDS2 ---
Discharge Summary Date of Admission Jan 05, 2025 at 06:33 Date of Discharge: Jan 08, 2025 Labs/Diagnostic Data: Laboratory Results Test 01/06/25 06:24 01/05/25 13:07 01/05/25 11:15 01/05/25 10:50 White Blood Count 7.0 10^3/uL (4.4-10.8) Red Blood Count 4.59 10^6/uL (4.5-5.90) Hemoglobin 13.7 g/dL (13.5-17.5) Hematocrit 39.8 % (41.0-53.0) Mean Corpuscular Volume 86.7 fL (80.0-100.0) Mean Corpuscular Hemoglobin 29.8 pg (28.0-32.0) Mean Corpuscular Hemoglobin Concent 34.4 g/dL (32.0-36.0) Red Cell Distribution Width 12.9 % (11.8-14.3) Platelet Count 195 10^3/uL (140-450) Mean Platelet Volume 9.1 fL (6.9-10.8) Neutrophils (%) (Auto) 51.5 % (37.0-80.0) Lymphocytes (%) (Auto) 34.4 % (10.0-50.0) Monocytes (%) (Auto) 11.0 % (0.0-12.0) Eosinophils (%) (Auto) 2.4 % (0.0-7.0) Basophils (%) (Auto) 0.7 % (0.0-2.0) Neutrophils # (Auto) 3.6 10 ^3/uL (1.6-8.6) Lymphocytes # (Auto) 2.4 10 ^3/uL (0.4-5.4) Monocytes # (Auto) 0.8 10 ^3/uL (0-1.3) Eosinophils # (Auto) 0.2 10 ^3/uL (0-0.8) Basophils # (Auto) 0 10 ^3/uL (0-0.2) Nucleated Red Blood Cells 0.1 % Sodium Level 142 mmol/L (136-145) Potassium Level 3.8 mmol/L (3.5-5.1) Chloride Level 106 mmol/L (98-107) Carbon Dioxide Level 26 mmol/L (20-31) Anion Gap 10 (5-15) Blood Urea Nitrogen 10 mg/dL (9-23) Creatinine 0.88 mg/dL (0.700-1.30) Glomerular Filtration Rate Calc 122 mL/min (>90) BUN/Creatinine Ratio 11.4 (10.0-20.0) Serum Glucose 88 mg/dL (74-106) Calcium Level 8.8 mg/dL (8.7-10.4) Total Bilirubin 1.5 mg/dL (0.2-1.0) Aspartate Amino Transferase (AST) 38 U/L (13-40) Alanine Aminotransferase (ALT) 82 U/L (7-40) Alkaline Phosphatase 83 U/L (46-116) Total Protein 6.9 g/dL (5.7-8.2) Albumin 4.2 g/dL (3.2-4.8) HIV (1&2) Antibody Negative (Negative) Influenza Type A Antigen Negative (Negative) Influenza Type B Antigen Negative (Negative) SARS-CoV-2 Antigen (Rapid) Negative (NEGATIVE) Test 01/05/25 10:21 01/05/25 04:56 01/05/25 02:17 01/05/25 01:50 Prothrombin Time 11.0 sec (9.3-11.8) Prothrombin Time INR 1.04 (0.9-1.15) Activated Partial Thromboplast Time 27.6 SEC (24.5-34.5) Hemoglobin A1c 5.1 % A1C (<5.7) Lactic Acid Level 0.9 mmol/L (0.4-2.0) Phosphorus Level 2.8 mg/dL (2.4-5.1) Magnesium Level 1.9 mg/dL (1.6-2.6) Triglycerides Level 69 mg/dL (< 150) Cholesterol Level 159 mg/dL (< 200) LDL Cholesterol 108 mg/dL (< 100) HDL Cholesterol 41 mg/dL (40-59) Vitamin B12 Level 464 pg/mL (211-911) Vitamin D 25-Hydroxy 47.0 ng/mL (30.0-100) Thyroid Stimulating Hormone (TSH) 2.71 uIU/mL (0.55-4.78) Treponema pallidum Antibody Non-reactive (Negative) Hepatitis A IgM Antibody Negative Hepatitis B Surface Antigen Negative (Negative) Hepatitis B Core IgM Antibody Negative (Negative) Hepatitis C Antibody Negative (Negative) Troponin I High Sensitivity < 3 ng/L (</=54) Urine Color Light-yellow (Yellow) Urine Clarity Clear (Clear) Urine pH 5.0 (5.0-9.0) Urine Specific [place] 1.010 (1.001-1.035) Urine Protein Negative (Negative) Urine Ketones Negative (Negative) Urine Blood Negative /uL (Negative) Urine Nitrite Negative (Negative) Urine Bilirubin Negative (Negative) Urine Urobilinogen Normal mg/dL (Negative) Urine Leukocyte Esterase Negative /uL (Negative) Urine RBC <1 /hpf (0 - 3) Urine Microscopic WBC < 1 /HPF (0-3) Urine Squamous Epithelial Cells None seen /hpf (<5) Urine Bacteria None seen /hpf (None Seen) Urine Glucose Normal mg/dL (Normal) Urine Opiates Screen Neg (NEGATIVE) Urine Fentanyl Screen Neg (NEGATIVE) Urine Barbiturates Screen Neg (NEGATIVE) Urine Phencyclidine Screen Neg (NEGATIVE) Urine Amphetamines Screen Neg (NEGATIVE) Urine Benzodiazepines Screen Neg (NEGATIVE) Urine Cocaine Screen Neg (NEGATIVE) Urine Cannabinoids Screen Neg (NEGATIVE) Chlamydia trachomatis (JUAN A) Negative (Negative) Neisseria gonorrhoeae (JUAN A) Negative (Negative) D-Dimer, Quantitative 0.34 mg/L FEU (0.0-0.49) Other Laboratory Tests 01/06/25 06:24 Brief Hx & Hospital Course: 25-year-old young male with known history of anxiety and depression disorder is here for palpitations and high heart rate found to have suspected posterior orthostatic tachycardia syndrome. Patient was given IV hydration. Joshua high thigh hose was arranged. Patient was seen by Cardiology cleared to be discharged on beta-kris. Patient is requesting only propranolol for home. Patient does have known history of anxiety and depression disorder currently not in decompensation. Patient is being discharged under stable condition. Condition at Discharge: Stable Final Diagnosis/Problems List 25-year-old young male with known history of anxiety and depression disorder is here for palpitations and high heart rate found to have 1. Suspected postural orthostatic tachycardia syndrome(POTS) 2. Palpitation with a high heart rates continued 1. 3. Anxiety and depression disorder 4. Dyslipidemia Discharge Disposition: Home SNF Discharge Will this Physician continue t: No Discharge Instruct/Medications Diet: Cardiac 2g Na,low cholest Activity: No Restrictions, As Tolerated Follow Up/Referral: Please follow up with the PCP in one week Follow up with Cardiology in 1-2 weeks Medications: Resume home medications New Medications: Propranolol HCl (Propranolol Hydrochloride) 20 Mg Tab 10 MG PO BID for 30 Days, #30 TAB Continued Medications: Albuterol Sulfate (Albuterol Sulfate Hfa) 108 Mcg/Act Aer 2 PUFF IN Q4H PRN for SHORTNESS OF BREATH, AER Bupropion Hcl (Wellbutrin Sr) 150 Mg Tab 1 TAB PO BID, #60 TAB 5 Refills Dicyclomine Hcl (Bentyl Capsule) 10 Mg Cp 1 CAP PO Q6HPRN, #20 CAP 0 Refills Famotidine (Famotidine) 40 Mg Tab 40 MG PO HS, TAB Fluticasone Propionate (Nasal) (Allergy Nasal [place] 24 Ho) 50 Mcg/Act Spr 1 SPRAY NA DAILY, SPRAY Ivabradine HCl (Ivabradine Hydrochloride) 5 Mg Tab 2.5 MG PO BID for 30 Days, #30 TAB Lorazepam (Ativan Tablet) 0.5 Mg Tb 2 TAB PO DAILY PRN for ANXIETY, #30 TAB Mirtazapine (Remeron) 15 Mg Tab 15 MG PO HS, TAB Paroxetine (Paxil Tablet) 20 Mg Tb 15 TAB PO DAILY, #30 TAB 5 Refills Promethazine-Dm (Promethazine Dm 6.25-15 mg/5Ml) 1 Tatyana Tatyana 5 ML PO TID, #150 ML Quetiapine Fumerate (Quetiapine Fumarate) 300 Mg Tab 300 MG PO HS, MG Sertraline Hcl (Sertraline Hcl) 50 Mg Tab 25 MG PO DAILY, MG Discontinued Medications: Azithromycin (Zithromax Tablet) 250 Mg Tb 250 MG PO DAILY, #6 TAB Ibuprofen (Ibuprofen) 600 Mg Tab 1 TAB PO QID, #30 TAB Lorazepam (Ativan) 0.5 Mg Tab 0.25 TAB PO DAILY, #30 TAB Mirtazapine (Remeron) 15 Mg Tab 1 TAB PO QPM, #30 TAB 1 Refill Scheduled Azithromycin (Zithromax Tablet), 250 MG PO DAILY Bupropion Hcl (Wellbutrin Sr), 1 TAB PO BID Dicyclomine Hcl (Bentyl Capsule), 1 CAP PO Q6HPRN Famotidine (Famotidine), 40 MG PO HS, (Reported) Fluticasone Propionate (Nasal) (Allergy Nasal [place] 24 Ho), 1 SPRAY NA DAILY, (Reported) Ibuprofen (Ibuprofen), 1 TAB PO QID Ivabradine HCl (Ivabradine Hydrochloride), 2.5 MG PO BID Lorazepam (Ativan), 0.25 TAB PO DAILY, (Reported) Mirtazapine (Remeron), 15 MG PO HS, (Reported) Mirtazapine (Remeron), 1 TAB PO QPM, (Reported) Paroxetine (Paxil Tablet), 15 TAB PO DAILY, (Reported) Promethazine-Dm (Promethazine Dm 6.25-15 mg/5Ml), 5 ML PO TID Propranolol HCl (Propranolol Hydrochloride), 10 MG PO BID Quetiapine Fumerate (Quetiapine Fumarate), 300 MG PO HS, (Reported) Sertraline Hcl (Sertraline Hcl), 25 MG PO DAILY, (Reported) Scheduled PRN Albuterol Sulfate (Albuterol Sulfate Hfa), 2 PUFF IN Q4H PRN for SHORTNESS OF BREATH, (Reported) Lorazepam (Ativan Tablet), 2 TAB PO DAILY PRN for ANXIETY, (Reported) Discharge Statement: "Patient was advised to return to the ER or call 911 if any headaches, dizziness, shortness of breath, chest pain, abdominal pain, bleeding, fevers, or worsening of medical condition. Patient was counseled about treatment plan, medications, possible side effects, patientverbalized understanding. All questions were answered to the best of my ability. This discharge took greater then 30 minutes in planning, reviewing documentation, counseling the patient, and discussing with other team members." ASSESSMENT ASSESSMENT Assessment 25-year-old young male with known history of anxiety and depression disorder is here for palpitations and high heart rate found to have 1. Suspected postural orthostatic tachycardia syndrome(POTS) 2. Palpitation with a high heart rates continued 1. 3. Anxiety and depression disorder 4. Dyslipidemia Date of Service: Jan 08, 2025 Billing Provider: SHEYLA PARRA MD Common Visit Codes: 82793-[id number] DISCH DAY >30min SHEYLA PARRA MD Jan 08, 2025 15:30
== END 2025-01-08 16:32 | disposition home or self-care (01) | DRG 48 ==
LOC: ER 01:20 → OVERFLOW 06:33 → TELE-WESTW 23:29
PROVIDERS: ADMIT Internal Medicine; ATTEND Internal Medicine
DX: G90.A Postural orthostatic tachycardia syndrome [POTS] (principal); B34.9 Viral infection, unspecified; R73.9 Hyperglycemia, unspecified; F41.9 Anxiety disorder, unspecified; F32.A Depression, unspecified; J45.909 Unspecified asthma, uncomplicated; I10 Essential (primary) hypertension; E78.5 Hyperlipidemia, unspecified; Z20.822 Contact with and (suspected) exposure to COVID-19; Z83.3 Family history of diabetes mellitus; Z82.49 Family history of ischemic heart disease and other diseases of the circulatory system; Z81.8 Family history of other mental and behavioral disorders; Z80.52 Family history of malignant neoplasm of bladder; Z80.1 Family history of malignant neoplasm of trachea, bronchus and lung; Z79.899 Other long term (current) drug therapy
CPT/HCPCS: 36415; 71045; 80048; 80053; 80061; 80074; 80307; 81001; 82088; 82306; 82607; 83036; 83605; 83735; 83835; 84100; 84244; 84443; 84484; 85025; 85379; 85610; 85730; 86703; 86780; 87081; 87426; 87804; 93005; 93306; 99291; G0378; J3490